=== PATIENT | female | born 1980 | race Caucasian/White ===

== ENCOUNTER → 2020-02-20 14:35 | Outpatient (CLI) | payer BC, SELFPAY ==
[2020-02-20 15:09] LABS: Basophils % 0.5 % (0.1-2.0); Eosinophils # 0.1 K/mm3 (0.0-0.4); Eosinophils % 0.7 % (0.1-12.0); Hematocrit 39.1 % (37.0-47.0); Hemoglobin 14.9 g/dL (12.2-16.2); Lymphocytes # 2.7 K/mm3 (0.7-4.5); Lymphocytes % 36.9 % (10-50); Mean Corpuscular Volume 94.8 fl (81-99); Mean Platelet Volume 7.6 fl (7.4-10.4); Monocytes # 0.5 K/mm3 (0.1-1.0); Monocytes % 7.2 % (1.7-9.3); Neutrophils % 54.6 % (37.0-80.0); Platelet Count 308 K/mm3 (142-424); Red Blood Count 4.13 M/mm3 (4.20-5.40); Red Cell Distribution Width 13.5 % (11.5-17.5); White Blood Count 7.4 K/mm3 (4.8-10.8)
[2020-02-20 15:27] LABS: Alanine Aminotransferase 29 U/L (12-78); Albumin Level 4.4 g/dl (3.5-5.0); Albumin/Globulin Ratio 1.5 (1.1-1.8); Alkaline Phosphatase 63 U/L (38-126); Amylase 73 U/L (30-110); Anion Gap 15.2 mEq/L (5-15); Aspartate Amino Transferase 34 U/L (14-36); Bilirubin,Total 0.7 mg/dl (0.2-1.3); Blood Urea Nitrogen 12 mg/dl (7-17); Calcium 9.6 mg/dl (8.4-10.2); Carbon Dioxide 25 mmol/L (22.0-30.0); Chloride 102 mmol/L (98-107); Estimated Glomerular Filt Rate 70 ml/min (>60); GFR (African American) 84 ML/MIN (>60); Glucose 82 mg/dl (74-100); Lipase 131 U/L (23-300); Potassium 4.2 mmoL/L (3.5-5.1); Sodium 138 mmol/L (136-145); Total Protein,Serum 7.4 g/dl (6.3-8.2)
[2020-02-23 16:53] LABS: H. pylori Breath Test Negative (Negative)
== END ==
PROVIDERS: Visit Provider Nurse Practitioner Family
DX: R10.10 Upper abdominal pain, unspecified (principal); R10.13 Epigastric pain
CPT/HCPCS: 36415; 80053; 82150; 83013; 83690; 85025

== ENCOUNTER → 2020-02-27 09:10 | Outpatient (CLI) | payer BC, SELFPAY ==
--- NOTE | 2020-02-27 09:15 | US_ITS ---
PROCEDURE: US ABDOMEN LIMITED CLINICAL INDICATION: Dyspepsia, Upper ABD pain COMPARISON: US ABD US ABD(COMPLETE-MULTI ORGANS from 08/24/2016 FINDINGS: PANCREAS: Unremarkable. No obvious mass or abnormal fluid collection. No ductal dilatation LIVER: No focal liver lesions demonstrated. Homogeneous echogenicity. No intrahepatic biliary ductal dilatation evident. There is appropriate direction of blood flow within a non dilated portal vein RIGHT KIDNEY: Unremarkable. Normal size and echogenicity. No hydronephrosis GALLBLADDER: Prior cholecystectomy. Common bile duct is normal at 4 mm. IMPRESSION: Post cholecystectomy otherwise negative Dictated b Randolph Coffey MD 02/27/2020 17:05 Randolph Coffey MD in OV 02/27/2020 17:05
== END ==
PROVIDERS: PCP Family Medicine; Visit Provider Nurse Practitioner Family
DX: R10.10 Upper abdominal pain, unspecified (principal); R10.13 Epigastric pain
CPT/HCPCS: 76705

== ENCOUNTER 2023-12-27 14:03 | Outpatient (CLI) | payer BC, SELFPAY ==
--- NOTE | 2023-12-27 14:17 | US_ITS ---
FINAL REPORT CLINICAL HISTORY: HYPOTHYROIDISM COMPARISON: None FINDINGS: Sonographic images of the thyroid gland were obtained. The right thyroid lobe measures 5.1 cm. in length. The left thyroid lobe measures 4.1 cm. in length. The thyroid isthmus measures 0.3 cm. The echogenicity is normal. No mass or nodule is identified. IMPRESSION: Unremarkable thyroid ultrasound. Reviewed, Interpreted and Dictated by Sebas Agrawal III, MD Transcribed by Leilani Tejeda Authenticated and [facility]
== END 2023-12-27 23:59 | disposition home or self-care (01) ==
PROVIDERS: PCP Nurse Practitioner; Visit Provider Nurse Practitioner
DX: E03.9 Hypothyroidism, unspecified (principal)
CPT/HCPCS: 76536

== ENCOUNTER 2024-06-18 10:32 | Outpatient (CLI) | payer BC, SELFPAY ==
--- OUTSIDE RECORDS SUMMARY | 2024-06-18 10:34 | XMS_ITS | Encounter Summary ---
Author Organization [place] [address] Care Team Providers Care Wheel Braider Name Role Phone Aldair Sands Primary Care Provider [phone] Reason for Referral * Holter Monitor (Emergency) - Pending Review Specialty Diagnoses / Procedures Referred By Contac t Referred To Contact Radiology Diagnoses Palpitations Procedures HM HOLTER MONITOR RECORDING AND ANALYSIS [address] APRN [address] [place] [address] Phone: tel: fax: Referral ID Status Reason Start Date Expiration Date V isits Requested Visits Authorized [id number] Pending Review 08/30/2022 08/30/2024 1 1 * (Routine) - Closed Specialty Diagnoses / Procedures Referred By Contac t Referred To Contact Diagnoses Chest pain, unspecified type Procedures LOW RISK CHEST PAIN APPOINTMENT [address] [facility] [address] [place] [address] Phone: tel: fax: Referral ID Status Reason Start Date Expiration Date Visits Re quested Visits Authorized [id number] Closed 08/30/2022 08/30/2023 1 1 Reason for Visit * Reason Comments Tachycardia Feels her heart is r acing, hx pvc's, chest pain Encounter Details Date Type Department Care Team (Late st Contact Info) Description 08/30/2022 3:51 PM EST - 08/30/2022 6:34 PM EST [facility] [address] [place] [address] Rylan Rojas MD [address] [place] [id number] Chest pain, unspecified type (Primary Dx); Palpitations Discharge Disposition: Home or Self Care Social History Tobacco Use Types Packs/Day Years Used Date Smoking Tobacco: Never Smokeless Tobacco: Never Alcohol Use Standard Drinks/Week Comments Yes 1 (1 standard drink = 0.6 oz pur e alcohol) occ Comments No Sex and Gender Information Value Date Recorded Sex Assigned at Not on file Legal Sex Female 6:46 AM EDT Gender Identity Not on file Sexual Orientation Not on file COVID-19 Exposure Response Date Recorded In the last 10 days, have yo u been in contact with someone who was confirmed or suspected to have Coronavirus/COVID-19? Unable to assess 08/30/2022 4:16 PM EST documented as of this encounter Last Filed Vital Signs Vital Sign Reading Time Taken Comments Blood Pressure 138/78 08/30/2022 3:53 PM EST Pulse 74 08/30/2022 6:18 PM EST Temperature 36.7 ??C (98 ??F) 08/30/2022 3:53 PM EST Respiratory Rate 20 08/30/2022 3:53 PM EST Oxygen Saturation 100% 08/30/2022 3:53 PM EST Inhaled Oxygen Concentration - - Weight - - Height - - Body Mass Index - - documented in this encounter Discharge Instructions * Discharge Instructions* [address] [facility] APRN - 08/30/2022 6:17 PM EST You will be contacted by cardiology for referral to speak with a sales support associate, you should also contact central scheduling to obtain Holter monitor. Follow-up with your primary care provider, return for any worsening concerns or symptoms. documented in this encounter Medications at Time of Discharge levothyroxine (SYNTHROID) 100 mcg Oral Tablet Take 100 mcg by mouth daily. norgestimate-ethin yl estradiol (ORTHO TRI-CYCLEN;TRI-SPR INTEC) 0.18/0.215/0.25 mg-35 mcg (28) Oral Tablet Take 1 Tab by mouth daily. documented as of this encounter Discharge Disposition Disposition Code Departure Means Destination Comment s Home or Self Assisted documented in this encounter ED Notes * [address], ALIN - 08/30/2022 3:47 PM EST Chief Complaint Patient presents with ??? Tachycardia Feels her heart is racing, hx pvc's, chest pain Marycruz Manzano is a 42-year-old female presenting with palpitations and chest pain. Patient states she was at school today and was having frequent PVCs. She states he has a history ofPVCs but for over 1 hour she can get her heart rate under 110 bpm. She was having chest pain at thetime. She describes it as pressure. Did not seem to be worse with exertion. States she does have a family history of cardiac disease which is what concerned her. She does drink caffeine. 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 Patient denies any chest pain at this time. She denies any recent surgeries, recent travel, history of PE or DVT, no hormonal therapy, no personal history of cancer. Patient History Allergies Allergen Reactions ??? Lidocaine Palpitations ??? Amoxicillin Rash Home Medications: Prior to Admission medications Medication Sig Start Date End Date Taking? Authorizing Provider levothyroxine (SYNTHROID) 100 mcg Oral Tablet Take 100 mcg by mouth daily. Yes Provider, Historical norgestimate-ethinyl estradiol (ORTHO TRI-CYCLEN;TRI-SPRINTEC) 0.18/0.215/0.25 mg-35 mcg (28) Oral Tablet Take 1 Tab by mouth daily. Yes Provider, Historical Past Medical History: Past Medical History: Diagnosis Date ??? Headache ??? Heart abnormality palpitations-wore heart monitor approx 4 yrs ago ??? Thyroid disease hypothyroid Social History: reports that she has never smoked. She has never used smokeless tobacco. She reports current alcohol use of about 0.6 oz per week. She reports that she does not use drugs. E-Cigarettes (such as Vapes or Juul) Family History: Family History Problem Relation Age of Onset ??? Heart Disease Mother ??? Diabetes Mother ??? High Cholesterol Mother ??? High Cholesterol Father ??? Anesth Problems Neg Hx Surgical History: Past Surgical History: Procedure Laterality Date ??? CHOLECYSTECTOMY, LAPAROSCOPIC N/A 10/14/2016 LAPAROSCOPIC CHOLECYSTECTOMY ; Surgeon: Bennett Jimenez MD; Location: [facility] MAIN OR; Service: General ??? SOFT TISSUE BIOPSY N/A 08/18/2017 EXCISIONAL BIOPSY SCALP MASS x3; Surgeon: Bennett Jimenez MD; Location: [facility] MAIN OR; Service: General ??? TONSILLECTOMY [age] yrs old Review of Systems Review of Systems Constitutional: Negative for chills and fever. HENT: Negative. Eyes: Negative. Respiratory: Negative for cough and shortness of breath. Cardiovascular: Positive for chest pain and palpitations. Negative for leg swelling. Gastrointestinal: Negative for abdominal pain, diarrhea, nausea and vomiting. Genitourinary: Negative for dysuria and frequency. Musculoskeletal: Negative. Skin: Negative for rash. Neurological: Negative. Psychiatric/Behavioral: Negative. All other systems reviewed and are negative. Physical Exam Blood pressure 138/78, pulse 110, temperature 98 ??F (36.7 ??C), temperature source Oral, resp. rate 20, SpO2 100 %, not currently . Physical Exam Vitals and nursing note reviewed. Constitutional: General: She is not in acute distress. Appearance: She is well-developed. She is not ill-appearing or toxic-appearing. Eyes: Conjunctiva/sclera: Conjunctivae normal. Pupils: Pupils are equal, round, and reactive to light. Cardiovascular: Rate and Rhythm: Normal rate and regular rhythm. Heart sounds: No murmur heard. No friction rub. No gallop. Comments: Normal sinus rhythm on monitor occasional PVC. No JVD. Pulmonary: Effort: Pulmonary effort is normal. Breath sounds: Normal breath sounds. Abdominal: General: Bowel sounds are normal. There is no distension. Palpations: Abdomen is soft. Tenderness: There is no abdominal tenderness. Musculoskeletal: Cervical back: Normal range of motion and neck supple. Lymphadenopathy: Cervical: No cervical adenopathy. Skin: General: Skin is warm and dry. Findings: No rash. Neurological: Mental Status: She is alert and oriented to person, place, and time. Procedures Radiology/EKG/Labs: Results for orders placed or performed during the hospital encounter of 08/30/22 XR CHEST AP PORTABLE Narrative XR CHEST AP PORTABLE, 08/30/2022 4:51 PM CLINICAL HISTORY: -TACHYCARDIA COMPARISON: None. PROCEDURE COMMENTS: AP portable technique. FINDINGS: Support devices: No visible support devices. Heart and mediastinal contours within normal limits for technique. No active failure, pneumonia, or visible effusion. No visible pneumothorax. Impression No acute finding. - Note: Radiology results need to be interpreted within a comprehensive clinical context. If you have questions about the radiology report, please contact the office of the ordering clinician. CBC Result Value Ref Range WBC 7.7 3.7 - 10.3 x10(3)/mcL RBC 4.90 3.90 - 5.20 x10(6)/mcL Hgb 14.4 11.2 - 15.7 g/dL Hct 44.2 34.0 - 45.0 % MCV 90.2 80.0 - 100.0 fL MCH 29.4 26.0 - 34.0 pg MCHC 32.6 30.7 - 35.5 g/dL RDW 13.6 <=14.9 % Platelet 462 (H) 155 - 369 x10(3)/mcL MPV 9.8 8.8 - 12.5 fL BASIC METABOLIC PANEL Result Value Ref Range Sodium 141 136 - 145 mmol/L Potassium 3.5 3.5 - 5.0 mmol/L Chloride 105 98 - 107 mmol/L Total CO2 22 22 - 29 mmol/L Anion Gap 14 7 - 16 mmol/L Calcium 10.0 8.6 - 10.4 mg/dL Glucose Lvl 102 (H) 74 - 100 mg/dL BUN 7 6 - 20 mg/dL Creatinine 0.94 0.51 - 1.30 mg/dL eGFR (CKD-EPIcr 2020) 78 >=60 mL/min/1.73 m2 TROPONIN-T HIGH SENSITIVITY BASELINE W/ REFLEX Result Value Ref Range ht-pWjicnmim-R <6 <14 ng/L Narrative Ingestion of shay doses of biotin (>5 mg/day) taken within 8 hours of drawing blood sample can interfere with this immunoassay test. EK EKG 12 LEAD Narrative NOTICE: Preliminary tracing available for review; Final Interpretation by physician to follow. Impression 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 Chest pain, unspecified type 2. Palpitations MDM Medical Decision Making Patient present with above complaints, here for an acute concern, history per patient, previous past medical records reviewed. Patient developed tachycardia palpitations and chest pain while at work.Symptoms lasted for over 1 hour. Does have a history of palpitations but describing family history of cardiac disease. She does drink caffeine, denies any alcohol or illicit drug use. 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 On arrival she is normotensive nontachycardic oxygen saturation 100% on room air. No active chest pain. Will obtain cardiac work-up will require 2-hour troponin given time length. CBC BMP unremarkable, chest x-ray clear. Initial troponin -2-hour troponin with no delta. Patient continued to be pain-free, heart score of 1, given low risk chest pain low concern for ACS she will be given referral for cardiology follow- up. Have also ordered 48-hour Holter monitor. Patient was given strict return precautions. She is agreeable with this plan. Patient verbalized understanding of discharge instructions and plan of care. Condition at Discharge/Transfer from Department: Stable This chart was completed using voice recognition technology and may contain unintended errors [address] APRN 08/30/22 [id number] Cosigned by Rylan Rojas MD at 08/30/2022 7:11 PM EST Associated attestation - Rylan Rojas MD - 08/30/2022 7:11 PM EST This chart was completed using voice recognition technology and may contain unintended errors documented in this encounter Plan of Treatment Scheduled Orders Name Type Priority Associated Diagnoses Order Schedule HOLTER MONITOR RECORDING AND ANALYSIS Imaging Cardiology STAT Palpitations 1 Occurrences starting 08/30/2022 until 08/30/2024 documented as of this encounter Procedures Procedure Name Priority Date/Time Associated Diagnosis Comments SCANNED EKG 09/01/2022 8:08 AM EST TROPONIN-T HIGH SENSITIVITY 2HR Timed 08/30/2022 5:39 PM EST XR CHEST AP PORTABLE JUAN 08/30/2022 4:51 PM EST TSH REFLEX STAT 08/30/2022 4:27 PM EST TROPONIN-T HIGH SENSITIVITY BASELINE W/ REFLEX STAT 08/30/2022 4:03 PM EST CBC STAT 08/30/2022 4:03 PM EST BASIC METABOLIC PANEL STAT 08/30/2022 4:03 PM EST EK EKG 12 LEAD STAT 08/30/2022 3:50 PM EST documented in this encounter Results * SCANNED EKG (09/01/2022 8:08 AM EST) Anatomical Region Laterality Modality Other 09/01/2022 8:08 AM EST us Unknown Provider IMG ECG ORDERABLES Final Result * TROPONIN-T HIGH SENSITIVITY 2HR (08/30/2022 5:39 PM EST) vz-yNgvsiika-O 2HR <6 <14 ng/L 08/30/2022 6:12 PM EST [facility] Comment:See the website vangie powell for rule out [place] care pathway, conditions other than AMI that can cause elevated hs cTnT, and comparison of values from the 4th and 5th generation Herb tests. https://askmayoexpert.[facility].org/topic/clinical-answers/gnt-36817911/cpm-203 31563 hs-cTnT 2Hr Delta from Baseline 08/30/2022 6:12 PM EST [facility] Comment:Unable to calculate, result is outside instrument's measuring range. Blood VENOUS BLOOD / Unknown Venipuncture / Unknown 08/30/2022 5:39 PM EST 08/30/2022 5:50 PM EST Narrative [facility] - 08/30/2022 6:12 PM EST Ingestion of shay doses of biotin (>5 mg/day) taken within 8 hours of drawing blood sample can interfere with this immunoassay test. us Rylan Rojas MD CHEMISTRY ORDERABLES Malu l Result [facility] [address] [place] [address] * XR CHEST AP PORTABLE (08/30/2022 4:51 PM EST) Anatomical Region Laterality Modality Chest Radiographic Kiley ging 08/30/2022 4:51 PM EST Impressions 08/30/2022 4:55 PM EST No acute finding. - Note: Radiology results need to be interpreted within a comprehensive clinical context. ??If you have questions about the radiology report, please contact the office of the ordering clinician. Narrative 08/30/2022 4:55 PM EST XR CHEST AP PORTABLE, ??08/30/2022 4:51 PM CLINICAL HISTORY: ??-TACHYCARDIA COMPARISON: ??None. PROCEDURE COMMENTS: AP portable technique. FINDINGS: Support devices: No visible support devices. Heart and mediastinal contours within normal limits for technique. ??No active failure, pneumonia, or visible effusion. ??No visible pneumothorax. Procedure Note Eric Thompson MD - 08/30/2022 XR CHEST AP PORTABLE, 08/30/2022 4:51 PM CLINICAL HISTORY: -TACHYCARDIA COMPARISON: None. PROCEDURE COMMENTS: AP portable technique. FINDINGS: Support devices: No visible support devices. Heart and mediastinal contours within normal limits for technique. Noactive failure, pneumonia, or visible effusion. No visible pneumothorax. IMPRESSION: No acute finding. - Note: Radiology results need to be interpreted within a comprehensiveclinical context. If you have questions about the radiology report, please contactthe office of the ordering clinician. Rylan Rojas MD IMG DIAGNOSTIC IMAGING OR DERABLES Final Result * TSH REFLEX (08/30/2022 4:27 PM EST) TSH Reflex 2.930 0.270 - 4.200 mcIU/mL 08/30/2022 7:48 PM EST [email or web address] Blood VENOUS BLOOD / Unknown Venipuncture / Unknown 08/30/2022 4:27 PM EST 08/30/2022 4:33 PM EST Narrative [email or web address] - 08/30/2022 7:48 PM EST Ingestion of shay doses of biotin (>5 mg/day) taken within 8 hours of drawing blood sample can interfere with this immunoassay test. [address] APRN CHEMISTRY ORDERABLES Final Result Performing Organization Address [facility]/ZIP Co de Phone Number [email or web address] [address] [facility] , [place] [address] * TROPONIN-T HIGH SENSITIVITY BASELINE W/ REFLEX (08/30/2022 4:03 PM EST) wo-zTsjhpqfx-K <6 <14 ng/L 08/30/2022 4:25 PM EST [facility] Comment:See the website enavu ContactMonkey for rule out [place] care pathway, conditions other than AMI that can cause elevated hs cTnT, and comparison of values from the 4th and 5th generation Herb tests. https://askmayoexpert.[facility].org/topic/clinical-answers/gnt-54838145/cpm-203 56113 Blood VENOUS BLOOD / Unknown Venipuncture / Unknown 08/30/2022 4:03 PM EST 08/30/2022 4:06 PM EST Narrative [facility] - 08/30/2022 4:25 PM EST Ingestion of shay doses of biotin (>5 mg/day) taken within 8 hours of drawing blood sample can interfere with this immunoassay test. Rylan Rojas MD CHEMISTRY ORDERABLES Malu l Result [facility] [address] [place] [address] * (ABNORMAL) BASIC METABOLIC PANEL (08/30/2022 4:03 PM EST) [facility] Sodium 141 136 - 145 mmol/L 08/30/2022 4:24 PM EST [facility] Potassium 3.5 3.5 - 5.0 mmol/L 08/30/2022 4:24 PM [facility] Chloride 105 98 - 107 mmol/L 08/30/2022 4:24 PM [facility] Total CO2 22 22 - 29 mmol/L 08/30/2022 4:24 PM [facility] Anion Gap 14 7 - 16 mmol/L 08/30/2022 4:24 PM [facility] Calcium 10.0 8.6 - 10.4 mg/dL 08/30/2022 4:24 PM [facility] Glucose Lvl 102(H) 74 - 100 mg/dL 08/30/2022 4:24 PM EST [facility] BUN 7 6 - 20 mg/dL 08/30/2022 4:24 PM [facility] Creatinine 0.94 0.51 - 1.30 mg/dL 08/30/2022 4:24 PM [facility] eGFR (CKD-EPIcr 2020) 78 >=60 mL/min/1.7 3 m2 08/30/2022 4:24 PM [facility] Comment:Estimated GFR was ca lculated using the CKD-EPIcr (2020) equation refit without race. The equation is recommended by the National Kidney Foundation - [place] [employer] of Nephrology Task Force. Blood VENOUS BLOOD / Unknown Venipuncture / Unknown 08/30/2022 4:03 PM EST 08/30/2022 4:06 PM EST Rylan Rojas MD CHEMISTRY ORDERABLES Malu servin Result [facility] [address] [place] [id number] * (ABNORMAL) CBC (08/30/2022 4:03 PM EST) WBC 7.7 3.7 - 10.3 x10(3)/mcL 08/30/2022 4:09 PM EST [facility] RBC 4.90 3.90 - 5.20 x10(6)/mcL 08/30/2022 4:09 PM EST [facility] Hgb 14.4 11.2 - 15.7 g/dL 08/30/2022 4:09 PM EST [facility] Hct 44.2 34.0 - 45.0 % 08/30/2022 4:09 PM EST [facility] MCV 90.2 80.0 - 100.0 fL 08/30/2022 4:09 PM EST [facility] MCH 29.4 26.0 - 34.0 pg 08/30/2022 4:09 PM EST [facility] MCHC 32.6 30.7 - 35.5 g/dL 08/30/2022 4:09 PM EST [facility] RDW 13.6 <=14.9 % 08/30/2022 4:09 PM EST [facility] Platelet 462(H) 155 - 369 x10(3)/[facility] 08/30/2022 4:09 PM EST [facility] MPV 9.8 8.8 - 12.5 fL 08/30/2022 4:09 PM EST [facility] Blood VENOUS BLOOD / Unknown Venipuncture / Unknown 08/30/2022 4:03 PM EST 08/30/2022 4:06 PM EST Rylan Rojas MD HEMATOLOGY ORDERABLES Fin al Result [facility] [address] [place], [place] [id number] * EK EKG 12 LEAD (08/30/2022 3:50 PM EST) Anatomical Region Laterality Modality Electrocardiogra phy 08/30/2022 4:19 PM EST Impressions 08/30/2022 10:38 PM EST ?[facility] ? Test Date: ?2022-08-30 Pat Name: ? MARYCRUZ MANZANO ?Department: ?? DEPID ? Room: ? 05 Gender: ? Female ? 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 Cw : ?1980 ? Requested By: [facility] Order Number: [id number] ?Reading MD: ?? [place]ia ? Measurements Intervals ?[place] ? Rate: ? 78 ? P: ?45 MT: ? 165 ?QRS: ?47 QRSD: ? 84 ? T: ?-1 QT: ? 366 ? QTc: ?419 ? 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1980 Requested By: [facility] Order Number: [id number] Noni MD: Jonathan Agrawal Measurements Intervals [place] Rate: 78 P: 45 MT: 165 QRS: 47 QRSD: 84 T: -1 QT: 366 QTc: 419 Interpretive Statements SINUS RHYTHM WITH OCCASIONAL VENTRICULAR PREMATURE COMPLEXES NONSPECIFIC T-WAVE ABNORMALITY Electronically Signed On 08-30-2022 22:38:19 EST by Jonathan Agrawal Rylan Rojas MD IM ECG ORDERABLES Final Result documented in this encounter Visit Diagnoses Diagnosis Chest pain, unspecified type- Primary Palpitations documented in this encounter Administered Medications Inactive Administered Medications - up to 1 most recent administrations Medication Order MAR Action Action Date Dose Rate Site sodium chloride 0.9% IV line flush 50 mL 50 mL, Intravenous, at 150-600 mL/hr, PRN, Starting on Mon08/30/22 at 1602, Until Mon08/30/22 at 2234, Line Care, Flush with a minimum of 20 mL after IVPB to insure complete administration of the dose. May use the saline infusion to back flush IVPB tubing as needed., Use this order to document priming and flushing IV line after medication administration. sodium chloride 0.9% syringe 5 mL 5 mL, Intravenous, PRN, Starting on Mon08/30/22 at 1602, Until Mon08/30/22 at 2234, Line Care, Flush with 5 mL saline pre/post IVP, and 5 mL prior to IVPB or blood product administration. Protocol for PERIPHERAL IV saline lock maintenance, flush with 3-5 mL saline syringe every 8 hours., Flush peripheral lines every 12 hours, central lines every 8 hours, and after IV medication documented in this encounter Active and Recently Administered Medications Times are shown in EST. PRN Medication Order 08/28/2022 08/29/2022 08/30/2022 sodium chloride 0.9% IV line flush 50 mL 50 mL, Intravenous, at 150-600 mL/hr, PRN, Starting on Mon08/30/22 at 1602, Until Mon08/30/22 at 2234, Line Care, Flush with a minimum of 20 mL after IVPB to insure complete administration of the dose. May use the saline infusion to back flush IVPB tubing as needed., Use this order to document priming and flushing IV line after medication administration. sodium chloride 0.9% syringe 5 mL 5 mL, Intravenous, PRN, Starting on Mon08/30/22 at 1602, Until Mon08/30/22 at 2234, Line Care, Flush with 5 mL saline pre/post IVP, and 5 mL prior to IVPB or blood product administration. Protocol for PERIPHERAL IV saline lock maintenance, flush with 3-5 mL saline syringe every 8 hours., Flush peripheral lines every 12 hours, central lines every 8 hours, and after IV medication documented in this encounter Orders Medications Ordered That Parminder ht Not Have Been Administered Count Last Ordered Date First Ordered Date sodium chloride 0.9% IV line flush 50 mL 1 08/30/2022 sodium chloride 0.9% syringe 5 mL 1 023 Nursing Count Last Ordered Date First Orde red Date LOW RISK CHEST PAIN APPOINTMENT 1 3 documented in this encounter Care Teams Wheel Braider Relationship Specialty Start Date End Date Aldair Sands [address] [place] [address] PCP - General Family Medicine 09/19/16 documented as of this encounter
--- OUTSIDE RECORDS SUMMARY | 2024-06-18 10:34 | XMS_ITS | Encounter Summary ---
Author Organization [place] [address] Care Team Providers Care Grill Chef Name Role Phone Aldair Sands Primary Care Provider Reason for Visit * Auth/Cert/Inpt Specialty Diagnoses / Procedures Referred By Mike t Referred To Contact Diagnoses Mass of scalp Mass of scalp [R22.0] Procedures EXCISIONAL BIOPSY SCALP MASS x3 Referral ID Status Reason Start Date Expiration Date Visits Re quested Visits Authorized [id number] 1 1 Encounter Details Date Type Department Care Team (Late st Contact Info) Description 08/18/2017 1:36 PM EST Anesthesia Event [facility] [address] [place] [address] Haroon Oneill DO [address] [place] [phone] Sandra Alvarez, TICKET BROKER [address] [place] [address] Anesthesia Record Procedure Summary Procedure Name Responsible Anesthesiologist Anesthesia Start Time Anesthesia Stop Time EXCISION OF MASS OR SKIN LESION Haroon Oneill DO 08/18/17 1336 08/18/17 1419 Events Date Time Event Comment 08/18/2017 1225 1326 AN Equip Check 1336 An Start 1336 An Start Data 1336 Immediate Pre Anesthetic Ass es 1345 Anesthesia Ready 1350 Incision 1419 an stop data 1419 Handoff I completed my SBAR handoff to the receiving nurse which have included the followin. Identification of the patient, family, or patient surrogate 2. Identification of the responsible practitioner 3. Pertinent medical history 4. Surgical procedure and reason for procedure 5. Intraoperative anesthetic management 6. Expectations/Plans for the early post-procedure period 7. Opportunity for questions and acknowledgement of understanding from the receiving PACU/ICU garment steamer 1419 An Stop Meds Name Total midazolam (VERSED) injection 1 mg/mL 2 m g propofol (DIPRIVAN) infusion 10 mg/mL 18 5,020 mcg acetaminophen (OFIRMEV)1000 mg/100 mL in fusion 1,000 mg ceFAZolin (ANCEF) IVPB 2 g 2 g lactated Ringers infusion 550 mL * Agents Name O2 Et Sevoflurane * Blood No blood administrations on file. Lines, Drains, and Airways Type Details Placement Removal Peripheral IV 08/18/17; 1202; 20; Right; Forearm; Leena Edwards RN; 08/18/17; 1452 08/18/17 1202 by Jennifer Waller RN 08/18/17 1452 by Nadia Rankin, LAURA Airway Device: Nasal Cannul a Salter; Placement Date: 08/18/17; Placement Time: 1346 (created via procedure documentation); Removal Date: 08/18/17; Removal Time: 1513 08/18/17 1346 by Kofi Jane CRNA 08/18/17 1513 by Discharge Provider, Automatic Incision/Procedural Site 08/18/17; 1349; Head (incision x 3); 08/18/17; 1513 08/18/17 1349 by Iris Stephens RN 08/18/17 1513 by Discharge Provider, Automatic documented in this encounter Social History Tobacco Use Types Packs/Day Years Used Date Smoking Tobacco: Never Smokeless Tobacco: Never Alcohol Use Standard Drinks/Week Comments Yes 1 (1 standard drink = 0.6 oz pur e alcohol) occ Comments No Sex and Gender Information Value Date Recorded Sex Assigned at Not on file Legal Sex Female 6:46 AM EDT Gender Identity Not on file Sexual Orientation Not on file documented as of this encounter Procedure Notes * Kofi Jane CRNA - 08/18/2017 1:46 PM ESTAssociated Order(s): INTRAOP AIRWAY PLACEMENT Intraop Airway Placement: Airway type: Nasal cannula salter documented in this encounter OR Notes * Anesthesia Postprocedure Evaluation - Haroon Oneill DO - 08/18/2017 3:13 PM EST Post-Anesthesia Evaluation Note Patient Name: Marycruz Echeverria Patient Date: August 18, 2017 Patient Location: PACU Post OP Vitals: stable Level of Consciousness: awake Post Anesthesia Pain: adequate analgesia Airway Patency: patent Difficult Airway: no Respiratory: room air and spontaneous ventilation Cardiovascular: stable and BP within 20% of baseline Hydration: euvolemic Nausea Controlled: yes * Anesthesia Preprocedure Evaluation - Haroon Oneill DO - 08/16/2017 9:05 AM EST Pre-Anesthesia Evaluation Note Patient Name: Marycruz Echeverria Sex: female Patient : 1980 Age: 37 y.o. Patient Date: August 16, 2017 Procedure: MASS/SKIN LESION EXCISION (N/A ) Anesthesia Evaluation Previous anesthesia. No history of anesthetic complications: Airway Mallampati: II TM distance: >3 FB Neck ROM: full No increased risk of difficult airway Dental - normal exam Pulmonary - negative ROS (+) Physical exam: Comments: Clear to auscultation (-) not a smoker Cardiovascular - negative ROS Comments: H/o palpitations (+)Physical exam: Rhythm: regular Rate: normal Neuro/Psych (+) Headaches GI/Hepatic/Renal - negative ROS Endo/Other Comments: Scalp mass (+) Hypothyroidism HR CLERK Additional Pre-evaluation comments Labs reviewed 09/2016 cbc cmp Urine preg DOS Body mass index is 28.59 kg/m??. Anesthesia Plan ASA 2 Last solid intake: The patient has not eaten within the last 8 hours. Last clear liquid intake: The patient has not had clear liquids within the last 2 hours. Anesthesia Plan: MAC Induction: intravenous Monitors: STD Informed consent Anesthetic plan and risks discussed with: patient. Chart Reviewed and patient examined documented in this encounter Plan of Treatment Not on file documented as of this encounter Procedures Procedure Name Priority Date/Time Associated Diagnosis Comments INTRAOP AIRWAY PLACEMENT Routine 08/18/2017 1:46 PM EST documented in this encounter Results * INTRAOP AIRWAY PLACEMENT (08/18/2017 1:46 PM EST) Narrative [facility] - 08/18/2017 1:46 PM EST Kofi Jane CRNA ? 08/18/2017 ??1:46 PM Intraop Airway Placement: ??Airway type: ??Nasal cannula salter Procedure Note Kofi Jane CRNA - 08/18/2017 1:46 PM EST Intraop Airway Placement: Airway type: Nasal cannula salter us Haroon Oneill DO SD ANESTHESIA Final Res ult [facility] [address] [place] [address] documented in this encounter Visit Diagnoses Not on filedocumented in this encounter Administered Medications Inactive Administered Medications - up to 1 most recent administrations Medication Order MAR Action Action Date Dose Rate Site acetaminophen (OFIRMEV) infusion Intravenous, PRN (Anesthesia), Starting on Mon08/18/17 at 1355, Until Mon08/18/17 at 1419, Administer over 15 Minutes, Anesthesia Intra-op Given 08/18/2017 1:55 PM EST 1,000 mg ceFAZolin (ANCEF) IVPB 2 g 2 g, Intravenous, ONCE, 1 dose, On Mon08/18/17 at 1345, Administer over 30 Minutes, Intra-op Given 08/18/2017 1:44 PM EST 2 g lactated Ringers infusion Intravenous, at 100 mL/hr, PREPROCEDURE CONTINUOUS, Starting on Mon08/18/17 at 1201, Until Mon08/18/17 at 1854, To be given in SDS/Pre-op Hold, Pre-op (Holding/SDS Meds) New Bag 08/18/2017 1:29 PM EST midazolam (VERSED) injection Intravenous, PRN (Anesthesia), Starting on Mon08/18/17 at 1335, Until Mon08/18/17 at 1419, Anesthesia Intra-op Given 08/18/2017 1:35 PM EST 2 mg propofol (DIPRIVAN) infusion 10 mg/mL Intravenous, CONTINUOUS PRN, Starting on Mon08/18/17 at 1335, Until Mon08/18/17 at 1419, Anesthesia Intra-op New Bag 08/18/2017 1:35 PM EST 50 mcg/kg/min 25.2 mL/hr documented in this encounter Care Teams Grill Chef Relationship Specialty Start Date End Date Aldair Sands [address] [place] [address] PCP - General Family Medicine 09/19/16 documented as of this encounter
--- OUTSIDE RECORDS SUMMARY | 2024-06-18 10:34 | XMS_ITS | Clinical Summary ---
Author Organization [facility] Address [address] [facility] [place] [address] Phone Care Team Providers Care Clinical Massage Therapist Name Role Phone Aldair Sands Primary Care Provider Allergies Active Allergy Reactions Criticality Noted Date Comments Amoxicillin Rash Medium 09/08/2016 Lidocaine Palpitations High 09/08/2016 Medications levothyroxine (SYNTHROID) 100 mcg Oral Tablet Take 100 mcg by mouth daily. Active norgestimate-eth inyl estradiol (ORTHO TRI-CYCLEN;TRI-S PRINTEC) 0.18/0.215/0.25 mg-35 mcg (28) Oral Tablet Take 1 Tab by mouth daily. Active Active Problems Problem Noted Date Diagnosed Date Scalp mass 07/06/2017 Biliary colic 09/08/2016 Surgical History Surgery Date Site/Laterality Comments TONSILLECTOMY [age] yrs old CHOLECYSTECTOMY, LAPAROSCOPIC 10/14/2016 Abdomen/N/A LAPAROSCOPIC CHOLECYSTECTOMY ; Surgeon: Bennett Jimenez MD; Location: [facility] OR; Service: General SOFT TISSUE BIOPSY 08/18/2017 N/A EXCISIONAL BIOPSY SCALP MASS x3; Surgeon: Bennett Jimenez MD; Location: [facility] OR; Service: General Medical History Medical History Date Comments Headache Heart abnormality palpitations-w ore heart monitor approx 4 yrs ago Thyroid disease hypothyroid Family History Medical History Relation Name Comments High Cholesterol Father Diabetes Mother Heart Disease Mother High Cholesterol Mother Anesth Problems Neg Hx Relation Name Status Comments Father Alive Mother Alive Social History Tobacco Use Types Packs/Day Years Used Date Smoking Tobacco: Never Smokeless Tobacco: Never Alcohol Use Standard Drinks/Week Comments Yes 1 (1 standard drink = 0.6 oz pur e alcohol) occ Comments No Sex and Gender Information Value Date Recorded Sex Assigned at Not on file Legal Sex Female 6:46 AM EDT Gender Identity Not on file Sexual Orientation Not on file Obstetrics History Last Filed Vital Signs Vital Sign Reading Time Taken Comments Blood Pressure 138/78 08/30/2022 3:53 PM EST Pulse 74 08/30/2022 6:18 PM EST Temperature 36.7 ??C (98 ??F) 08/30/2022 3:53 PM EST Respiratory Rate 20 08/30/2022 3:53 PM EST Oxygen Saturation 100% 08/30/2022 3:53 PM EST Inhaled Oxygen Concentration - - Weight 84.1 kg (185 lb 8 oz) 08/18/2017 11:55 AM EST Height 172.7 cm (5' 8 ) 08/18/2017 11:55 AM EST Body Mass Index 28.21 08/18/2017 11:55 AM EST Plan of Treatment Health Maintenance Due Date Last Done Comments Annual Wellness Exam 1983 DTaP/TDaP/Td (1 - Tdap) 01/04/2000 Hepatitis B Vaccine (1 of 3 - 19+ 3-dose series) 01/04/2000 Cervical Cancer Screening 2002 Pap Smear 2002 HPV/Pap Cotest 2011 Breast Cancer Screening 2021 COVID-19 Vaccine (3 - 2023-2 5 season) 2024 08/27/2020, 07/28/2020 Influenza Vaccine (#1) 2024 03/22/2018 Pneumococcal Vaccine 0-64 Aged Out No longer eligible based on patient's age to complete this topic Insurance [employer] PPO [employer] P[employer] Care Teams Clinical Massage Therapist Relationship Specialty Start Date End Date Aldair Sands [address] [place] [address] PCP - General Family Medicine 09/19/16
--- OUTSIDE RECORDS SUMMARY | 2024-06-18 10:34 | XMS_ITS | Encounter Summary ---
Author Organization [place] [address] Care Team Providers Care Job Press Operator Name Role Phone Aldair Sands Primary Care Provider Reason for Visit * Auth/Cert/Inpt Specialty Diagnoses / Procedures Referred By Contac t Referred To Contact Diagnoses Mass of scalp Mass of scalp [R22.0] Procedures EXCISIONAL BIOPSY SCALP MASS x3 Referral ID Status Reason Start Date Expiration Date Visits Re quested Visits Authorized [id number] 1 1 Encounter Details Date Type Department Care Team (Latest Contact Info) Description 08/18/2017 11:42 AM EST - 08/18/2017 2:54 PM EST Hospital Encounter [facility] [address] [facility] [place] [address] Bennett Jimenez MD [address] [facility] [place] [address] Preop testing (Primary Dx); Scalp mass; Mass of scalp Discharge Disposition: Home or Self Care Social [...] on file documented as of this encounter Last Filed Vital Signs Vital Sign Reading Time Taken Comments Blood Pressure 103/68 08/18/2017 2:40 PM EST Pulse 59 08/18/2017 2:40 PM EST Temperature 36.2 ??C (97.1 ??F) 08/18/2017 2:38 PM ES T Respiratory Rate 18 08/18/2017 2:40 PM EST Oxygen Saturation 100% 08/18/2017 2:40 PM EST Inhaled Oxygen Concentration - - Weight 84.1 kg (185 lb 8 oz) 08/18/2017 11:55 AM EST Height 172.7 cm (5' 8 ) 08/18/2017 11:55 AM EST Body Mass Index 28.21 08/18/2017 11:55 AM EST documented in this encounter Discharge Instructions * Discharge Instructions* Bennett Jimenez MD - 08/18/2017 2:23 PM EST +++++++++++++++++++++++++++++++++++++++++++++++++++++++++++++++++++ +++++++++++++++++++++++++++++++++++++++++++++++++++++++++++++++++++ [facility] Discharge Instructions - Following Anesthesia We appreciate the opportunity to care for you today! Here are a few reminders as you head home: ?? A responsible adult, 18 years or older must be in attendance until tomorrow morning. ?? Rest quietly today. ?? May resume usual diet as tolerated or as directed by your surgeon. ?? Do not drive or operate any machinery until tomorrow morning or as instructed. ?? Do not make any legal or important decisions for the next 24 hours. ?? Do not drink alcoholic beverages or take sleeping pills for 24 hours unless otherwise directed. ?? If you received a nerve block for post-operative pain control, protect your blocked arm/leg. It is numb. Carefully pad your limb to prevent pressure sores and other injuries. Be careful with applying cold/warm to the blocked limb. Numbness will alter the sensation of the limb and could damage your skin if you cannot correctly feel the temperature. ?? If you have questions or concerns regarding your anesthesia experience, please call our office at . Get Well Soon! [facility] Call Surgeon if you have: ?? Temperature greater than 100.4 ?? Persistent nausea and vomiting ?? Severe uncontrolled pain ?? Redness, tenderness, or signs of infection (pain, swelling, redness, odor or green/yellow discharge around the site) ?? Difficulty breathing, headache or visual disturbances ?? Hives ?? Persistent dizziness or light-headedness ?? Extreme fatigue ?? Any other questions or concerns you may have after discharge In an emergency, call 911 or go to an Emergency Department at a nearby hospital It is important to bring a complete, current list of your medications to any medical appointments or hospitalizations. Diet: Resume your usual diet. Good nutrition promotes healing. Increase fluid intake. Call Surgeon if you have: ?? Temperature greater than 100.4 ?? Persistent nausea and vomiting ?? Severe uncontrolled pain ?? Redness, tenderness, or signs of infection (pain, swelling, redness, odor or green/yellow discharge around the site) ?? Difficulty breathing, headache or visual disturbances ?? Hives ?? Persistent dizziness or light-headedness ?? Extreme fatigue ?? Any other questions or concerns you may have after discharge In an emergency, call 911 or go to an Emergency Department at a nearby hospital It is important to bring a complete, current list of your medications to any medical appointments or hospitalizations. 1. It is OK to shower in 4 days. No soaking/swimming 2. Activity as tolerated. It is OK to use stairs, and lift items as needed. 3. No driving if experiencing significant pain at the incisions sites, or if taking pain medication. 4. Diet as tolerated. Clear liquids if experiencing any nausea or vomiting. 5. Reinforce incisions with Neosporin or polysporin as needed 6. Please call [phone] for a follow-up appointment in 7 to 14 days. documented in this encounter Medications at Time of Discharge levothyroxine (SYNTHROID) 100 mcg Oral Tablet Take 100 mcg by mouth daily. norgestimate-ethi nyl estradiol (ORTHO TRI-CYCLEN;TRI-SP RINTEC) 0.18/0.215/0.25 mg-35 mcg (28) Oral Tablet Take 1 Tab by mouth daily. oxyCODONE-acetami nophen (PERCOCET) 5-325 mg Oral Tablet Take 1-2 Tabs by mouth every 4 hours as needed for up to 30 days. 30 Tab 08/18/2017 09/17/2017 documented as of this encounter Ordered Prescriptions Prescription Sig Dispense Quantity Refills Last Filled Start Date End Date oxyCODONE-acetamin ophen (PERCOCET) 5-325 mg Oral Tablet Take 1-2 Tabs by mouth every 4 hours as needed for up to 30 days. 30 Tab 08/18/2017 09/17/2017 documented in this encounter Discharge Disposition Disposition Code Departure Means Destination Home or Self Fdc documented in this encounter H&P Notes * Floyd Vega NP - 08/18/2017 12:03 PM EST [facility] History and Physical Name: Marycruz Echeverria ADDRESS: [address] [place] [address] : 1980 AGE: 37 y.o. Assessment: Mass of scalp [R22.0] Plan: Procedure(s): EXCISIONAL BIOPSY SCALP MASS x3 per Bennett Jimenez MD Admitting Physician: Bennett Jimenez MD Date of Admit: 08/18/2017 Subjective SUBJECTIVE Chief Complaint: Mass of scalp [R22.0] History of Present Illness: Patient is a 37 y.o. female with Mass of scalp [R22.0] who presents forsurgical intervention. Past Medical History: Diagnosis Date ??? Headache ??? Heart abnormality palpitations-wore heart monitor approx 4 yrs ago ??? Thyroid disease hypothyroid Past Surgical History: Procedure Laterality Date ??? CHOLECYSTECTOMY, LAPAROSCOPIC N/A 10/14/2016 LAPAROSCOPIC CHOLECYSTECTOMY ; Surgeon: Bennett Jimenez MD; Location: [facility] MAIN OR; Service: General ??? TONSILLECTOMY [age] yrs old Prior to Admission medications Medication Sig Start Date End Date Taking? Authorizing Provider levothyroxine (SYNTHROID) 100 mcg Oral Tablet Take 100 mcg by mouth daily. Provider, Historical norgestimate-ethinyl estradiol (ORTHO TRI-CYCLEN;TRI-SPRINTEC) 0.18/0.215/0.25 mg-35 mcg (28) Oral Tablet Take 1 Tab by mouth daily. Provider, Historical Allergies Allergen Reactions ??? Lidocaine Palpitations ??? Amoxicillin Rash Social History Social History ??? Marital status: Spouse name: N/A ??? Number of children: N/A ??? Years of education: N/A Social History Main Topics ??? Smoking status: Never Smoker ??? Smokeless tobacco: Never Used ??? Alcohol use 0.6 oz/week 1 Glasses of wine per week Comment: occ ??? Drug use: No ??? Sexual activity: Not Asked Other Topics Concern ??? None Social History Narrative ??? None Family History Problem Relation Age of Onset ??? Heart Disease Mother ??? Diabetes Mother ??? High Cholesterol Mother ??? High Cholesterol Father ??? Anesth Problems Neg Hx There are no active hospital problems to display for this patient. Blood pressure 118/78, pulse 68, temperature 97.2 ??F (36.2 ??C), temperature source Forehead, resp. rate 18, height 5' 8 (1.727 m), weight 185 lb 8 oz (84.1 kg), last menstrual period 08/08/2017, SpO2 100 %.Pain: 0/10 Review of Systems: The listed systems were reviewed and reveal the following in addition to any already discussed in the HPI: Review of Systems Constitutional: Negative. HENT: Negative for congestion, ear discharge, ear pain, hearing loss, nosebleeds and sore throat. Eyes: Negative for blurred vision, double vision, pain, discharge and redness. Respiratory: Negative. Cardiovascular: Negative for chest pain, palpitations, orthopnea and leg swelling. Gastrointestinal: Negative. Genitourinary: Negative. Musculoskeletal: Negative. Skin: Negative. Neurological: Negative for dizziness, tingling, tremors, focal weakness, seizures, loss of consciousness and headaches. Endo/Heme/Allergies: Negative. Psychiatric/Behavioral: Negative for depression, hallucinations, substance abuse and suicidal ideas. Objective OBJECTIVE Physical Exam: Body mass index is 28.21 kg/m??. Body surface area is 1.98 meters squared. Physical Exam Constitutional: She is oriented to person, place, and time. She appears well- developed and well-nourished. No distress. HENT: Head: Normocephalic. Mouth/Throat: Oropharynx is clear and moist. No oropharyngeal exudate. Eyes: Conjunctivae are normal. Pupils are equal, round, and reactive to light. Right eye exhibits no discharge. Left eye exhibits no discharge. No scleral icterus. Neck: Normal range of motion. Neck supple. No JVD present. No tracheal deviation present. No thyromegaly present. Cardiovascular: Normal rate, regular rhythm, normal heart sounds and intact distal pulses. Exam reveals no gallop and no friction rub. No murmur heard. Pulmonary/Chest: Effort normal and breath sounds normal. No stridor. No respiratory distress. She has no wheezes. She has no rales. She exhibits no tenderness. Abdominal: Soft. Bowel sounds are normal. There is no tenderness. There is no guarding. Genitourinary: Genitourinary Comments: Not done. Musculoskeletal: Normal range of motion. She exhibits no edema, tenderness or deformity. Lymphadenopathy: She has no cervical adenopathy. Neurological: She is alert and oriented to person, place, and time. Skin: Skin is warm and dry. No rash noted. She is not diaphoretic. No erythema. No pallor. Psychiatric: She has a normal mood and affect. Her behavior is normal. Judgment and thought contentnormal. Nursing note and vitals reviewed. Labs:Reviewed Radiology: EKG: None noted in review Floyd Vega NP 08/18/2017 Cosigned by Randolph Goodson MD at 08/24/2017 6:31 AM EST documented in this encounter Procedure Notes * Bennett Jimenez MD - 08/18/2017 2:54 PM EST DATE OF OPERATION: 08/18/2017 PREOPERATIVE DIAGNOSIS: Multiple scalp masses. POSTOPERATIVE DIAGNOSIS: Multiple scalp masses. PROCEDURE PERFORMED: Excisional biopsy of scalp mass x3 (1 cm, 3 cm, 4 cm). ESTIMATED BLOOD LOSS: 5 mL SPECIMENS: Scalp masses x3. ANESTHESIA: MAC plus local. DETAILS OF PROCEDURE: The patient was taken to the operating room and placed in supine position on the operating table. After induction of MAC anesthesia, the patient's scalp was shaved and prepped in standard surgical fashion. The lesions that were marked preoperatively were identified, and these were each infiltrated with 0.5% Marcaine with epinephrine. Attention was first turned to the largestone, which was towards the front or front of the skull. A transverse incision was made over this, and this was deepened through the dermis. The sac was easily identified, dissected to its deeper attachments, and passed off the table as a specimen. Hemostasis obtained with electrocautery. The wound was then closed with 3-0 Vicryl subdermal sutures. Attention was then turned to the more posteriorlylocated one. Again, this was preoperatively marked, a transverse incision was made. This was deepened through the dermis, and the cyst was dissected free of its deeper attachments, passed off the table as a specimen. Hemostasis was obtained. This wound was also closed with 3-0 Vicryl subdermal sutures. Finally, the smallest lesion was identified, a transverse incision was made. This was deepened through the dermis. The cyst was completely dissected free of its deeper attachments and passed off the table as a specimen. Hemostasis obtained with the Bovie electrocautery. This was closed as well with the dermal stitches. At the end the case, all needle, sponge and instrument counts were correct. The patient tolerated the procedure well and was transferred awake, alert, and in stable condition. Carlos Jimenez M.D. By: Wilmer Job ID: [id number] Doc ID: [id number] * Bennett Jimenez MD - 08/18/2017 2:23 PM EST [facility] OPERATIVE/PROCEDURE NOTE Marycruz Echeverria August 18, 2017 Body mass index is 28.21 kg/m??. Active Hospital Problems Diagnosis ??? *Scalp mass PRE-OP DIAGNOSIS: Mass of scalp [R22.0] POST-OP DIAGNOSIS: Mass of scalp [R22.0] PROCEDURE(S): Procedure(s): EXCISIONAL BIOPSY SCALP MASS x3 SURGEON(S): Surgeon(s) and Role: * Bennett Jimenez MD - Primary OR STAFF: Account Service Associate: Iris Stephens RN Scrub Villalobos: Keke Osborne CHIEF ACCOUNTANT Scrub Assist: Yanelis Johnson RN ANESTHESIA: Monitored Anesthesia Care SPECIMENS: ID Type Source Tests Collected by Time Destination 1 : cysts of the head Tissue Head PATHOLOGY TISSUE REQUEST Bennett Jimenez MD 08/18/2017 1400 ESTIMATED BLOOD LOSS: 5 mL FINDINGS: 1cm, 3cm, 4cm DISPOSITION/POST PROC COURSE: Stable to Post Anesthesia Care Unit Bennett Jimenez MD Date: 08/18/2017 documented in this encounter Nursing Notes * Nadia Rankin RN - 08/18/2017 2:53 PM EST Patient and patient's responsible libertarian given discharge instructions, verbalized understanding and agreed with treatment plan. 1 printed rx for percocet given. Instructed not to drink alcohol, drive or take tylenol while taking narcotic. Patient drinking without difficulty. Patient wheeled out of SDS in stable condition with visitor. * Carley Qiu RN - 08/15/2017 4:49 PM EST PREPARING FOR YOUR SURGERY Date of Surgery 2/2 Medications ??? Take the following pills with a small sip of water on the morning of surgery: Levothyroxine Food, Drinks, Tobacco ??? For your safety, do not eat any food or drink anything after midnight. This includes chewing gum, mints, candy, chewing tobacco and dip. You may have water only 4 hours prior to surgery start time unless instructed by your surgeon. ??? For tobacco users: do not smoke or use any type of tobacco products within 24 hours prior to surgery. Smoking will also slow your rate of healing, so it is advised that you do not smoke during the healing process. No beer, wine or alcohol 24 hours prior to surgery. Computer Training Specialist ??? On the day of surgery, it is important to have a Computer Training Specialist, someone who is 18 years or older, to accompany you and remain in the facility for the duration of your surgery. This person should be available for the Perioperative Team, which includes your surgeon, to communicate with before, during and after your surgery. Someone should also remain with you for [address] you and make sure you are SAFE during that time. ??? A parent must accompany a child scheduled for surgery and plan to stay at the hospital until the child is discharged. If your takes a special type of nipple or baby bottle, please bring that with you. If your child has a favorite security item such as a blanket or a special toy, please feel free to bring that with you. ??? Please do not bring children with you to the hospital or surgery center. Hygiene ??? You may brush your teeth and gargle the morning of surgery. Do not swallow water. ??? Please shower the morning of surgery or the night before. Do not wear makeup (including eye makeup) lotion, powder or deodorant. Please do not shave the operative extremity or near the operative extremity. Personal Items ??? Please wear simple, loose fitting clothing to the hospital. Do not bring valuables (money, credit cards, check books, etc.) or wear any jewelry on day of surgery. Remove all body piercings prior to arrival. All jewelry must be removed to avoid injury. We will not tape wedding rings/bands. ??? If you have dentures, they may be removed before going into the operating room, and we will provide a container for them. If you wear contact lenses or glasses, they must be removed. Please bringa case for them. ??? Do not remove hearing aids. You will wear them to surgery. Bring with You ?? If you have a Living Will and Durable Power of [employer] for Healthcare, please bring a copy. ??? If having surgery at the hospital and you wear CPAP or BIPAP, please bring your mask and the machine settings (not the actual machine) with you to the hospital on the day of your procedure. The hospital will supply a machine to use during your hospital stay. ??? If your procedure is taking place at a surgery center, you must bring your CPAP or BIPAP with you. ??? If you wear oxygen, please bring it with you to use during your travel to and from the hospital. Following your admission, the hospital will supply oxygen for your use. Notify the Surgeon ??? For your safety, notify your surgeon if you develop any illness between now and surgery time --cough, cold, fever, sore throat, nausea, vomiting, etc. Questions or Concerns? If you have any questions or concerns, feel free to call the contact number. We want to make sure you feel safe and have an excellent experience while you are here. Same Day Surgery Unit - [facility] at [phone]; [place]: Entrance 1A, go to [address] [place] [address] on the [facility] nurse's station documented in this encounter Plan of Treatment Not on file documented as of this encounter Procedures Procedure Name Priority Date/Time Associated Diagnosis Comments PATHOLOGY TISSUE REQUEST Routine 08/18/2017 2:00 PM EST Mass of scalp EXCISION OF MASS OR SKIN LESION 08/18/2017 1:35 PM EST Mass of scalp POCT URINE Routine 08/18/2017 12:28 PM EST Preop testing Scalp mass documented in this encounter Results * PATHOLOGY TISSUE REQUEST (08/18/2017 2:00 PM EST) CASE REPORT Surgical Pathology ?Case: [id number] ? Authorizing Provider: ??Bennett Jimenez MD ? Collected: ? 08/18/2017 1400 ? Ordering Location: ? [facility] ?Received: ?08/19/2017 0828 ? Pathologist: ? Andry, Nadia Caro, ? MD ? Specimen: ?Head, cysts of the head ? 08/22/2017 12:17 PM [facility] FINAL DIAGNOSIS Cyst of head, excision: - Benign pilar cysts. 08/22/2017 12:17 PM [facility] S DESCRIPTION Received in formalin labeled with the patient's name and designated cyst of the head are three glistening long-white to carrizales-long cysts 1.4 to 2.1 cm in greatest dimension. One contains uniform, soft pale long material and the other two soft, carrizales-long material. Felling Bucking Supervisor sections of each in two cassettes, largest cyst in A1. / CDM 08/22/2017 12:17 PM [facility] MICROSCOPIC DESCRIPTION Microscopic examination is performed and the findings corroborate the diagnosis. 08/22/2017 12:17 PM [facility] FLOW CYTOMETRY SUMMARY 08/22/2017 12:17 PM [facility] EMBEDDED IMAGES 08/22/2017 12:17 PM [facility] Tissue SPECIMEN FROM HEAD AND NECK STRUCTURE / Unknown 08/18/2017 2:00 PM EST 08/19/2017 8:28 AM EST us Bennett Jimenez MD PATHOLOGY ORDERABLES Final Resul t Performing Organization Address City/[facility]/ZIP Co de Phone Number [facility] [address] [place] [address] * POCT URINE (08/18/2017 12:28 PM EST) Preg Test, Ur neg POS/NEG [facility] Lot Number [id number] [facility] Expiration Date 11/13/2018 [facility] SeriAl # [facility] Control Line Yes YES/NO [facility] 08/18/2017 12:2 8 PM EST us Sandra Alvarez LAMP SHADE SEWER POINT OF CARE TEST ORDERABLES Final Result Performing Organization Address [facility] Co de Phone Number [facility] [address] [place] [address] documented in this encounter Visit Diagnoses Diagnosis Scalp mass- Primary Localized superficial swelling, mass, or lump Preop testing Preoperative examination, unspecified Scalp mass Localized superficial swelling, mass, or lump Mass of scalp Localized superficial swelling, mass, or lump documented in this encounter Administered Medications Inactive Administered Medications - up to 1 most recent administrations Medication Order MAR Action Action Date Dose Rate Site famotidine (PEPCID) injection 20 mg 20 mg, Intravenous, PREPROCEDURE, 1 dose, Starting on Mon08/18/17 at 1201, Until Mon08/18/17 at 1212, pre-op, Slow IV push (greater than 2 minutes). To be given in SDS/Pre-op Hold Use 10 mL normal saline to dilute and administer famotidine IV, Pre-op (Holding/SDS Meds) Given 08/18/2017 12:12 PM EST 20 mg lactated Ringers infusion Intravenous, at 100 mL/hr, PREPROCEDURE CONTINUOUS, Starting on Mon08/18/17 at 1201, Until Mon08/18/17 at 1854, To be given in SDS/Pre-op Hold, Pre-op (Holding/SDS Meds) New Bag 08/18/2017 1:29 PM EST ondansetron (ZOFRAN) injection 4 mg 4 mg, Intravenous, PRN, 1 dose, Starting on Mon08/18/17 at 1421, Until Mon08/18/17 at 1854, Nausea, PACU ondansetron (ZOFRAN-ODT) disintegrating tablet 8 mg 8 mg, Oral, PRN, 1 dose, Starting on Mon08/18/17 at 1421, Until Mon08/18/17 at 1854, Nausea, Dissolve in mouth, PACU documented in this encounter Active and Recently Administered Medications Times are shown in EST. Scheduled Medication Order 08/16/2017 08/17/2017 08/18/2017 acetaminophen (OFIRMEV) infusion 1,000 mg 1,000 mg, Intravenous, ONCE, 1 dose, On Mon08/18/17 at 1430, Administer over 15 Minutes, Use PRN for any pain if pt has not received acetaminophen products Maximum adult dose of acetaminophen is 4000 mg from all sources in 24 hours. , PACU 1430 (Due) ceFAZolin (ANCEF) IVPB 2 g (COMPLETED) 2 g, Intravenous, ONCE, 1 dose, On Mon08/18/17 at 1345, Administer over 30 Minutes, Intra-op 1344 (Given - Provid er: Kofi Jane CRNA) PRN Medication Order 08/16/2017 08/17/2017 08/18/2017 bupivacaine (MARCAINE) 0.5 % (5 mg/mL) injection (CANCELED) ONCE PRN, 1 dose, Starting on Mon08/18/17 at 1406, Until Mon08/18/17 at 1406, Intra-op 1406 (Given - Provid er: Bennett Jimenez MD) dimenhyDRINATE (DRAMAMINE) injection 12.5-25 mg 12.5-25 mg, Intravenous, PRN, 2 doses, Starting on Mon08/18/17 at 1421, Until Mon08/18/17 at 1854, Nausea, For persistent nausea unrelieved by other antiemetics. Begin with lowest dose unless otherwise directed. Give remainder of dose if nausea unrelieved in 20 minutes., PACU famotidine (PEPCID) injection 20 mg (COMPLETED) 20 mg, Intravenous, PREPROCEDURE, 1 dose, Starting on Mon08/18/17 at 1201, Until Mon08/18/17 at 1212, pre-op, Slow IV push (greater than 2 minutes). To be given in SDS/Pre-op Hold Use 10 mL normal saline to dilute and administer famotidine IV, Pre-op (Holding/SDS Meds) 1212 (Given - Provid er: Jennifer Waller RN) fentaNYL (SUBLIMAZE) injection 25 mcg 25 mcg, Intravenous, EVERY 5 MIN PRN, 4 doses, Starting on Mon08/18/17 at 1421, Until Mon08/18/17 at 1854, Pain, may give 50 mcg at a time for severe pain do not exceed 100mcg, For initial pain. Maximum dose not to exceed 100 mcg., PACU lactated Ringers infusion Intravenous, at 100 mL/hr, PREPROCEDURE CONTINUOUS, Starting on Mon08/18/17 at 1201, Until Mon08/18/17 at 1854, To be given in SDS/Pre-op Hold, Pre-op (Holding/SDS Meds) 1209 (New Bag - Prov ider: Jennifer Waller RN)1329 (New Bag - Provider: Kofi Jane CRNA)1415 (Anesthesia Volume Adjustment - Provider: Kofi Jane CRNA)1452 (Stopped - Provider: Nadia Rankin RN) meperidine (DEMEROL) injection (PF) 12.5 mg 12.5 mg, Intravenous, ONCE PRN, 1 dose, Starting on Mon08/18/17 at 1421, Until Mon08/18/17 at 1854, Shivering, Shivering, unless otherwise ordered by Anesthesia Coordinator, PACU morphine injection 2 mg 2 mg, Intravenous, EVERY 10 MIN PRN, Starting on Mon08/18/17 at 1421, Until Mon08/18/17 at 1854, Pain, can give 4mg at a time every 10 minutes if needed, Do not exceed 20 mg in one hour unless otherwise ordered by the Anesthesia Coordinator For pain unrelieved by fentanyl, can give 4mg IV morphine at a time every 10 minutes if needed, PACU ondansetron (ZOFRAN) injection 4 mg(Linked Group 1) 4 mg, Intravenous, PRN, 1 dose, Starting on Mon08/18/17 at 1421, Until Mon08/18/17 at 1854, Nausea, PACU ondansetron (ZOFRAN-ODT) disintegrating tablet 8 mg(Linked Group 1) 8 mg, Oral, PRN, 1 dose, Starting on Mon08/18/17 at 1421, Until Mon08/18/17 at 1854, Nausea, Dissolve in mouth, PACU oxyCODONE (ROXICODONE) immediate release tablet 5 mg 5 mg, Oral, PRN, 2 doses, Starting on Mon08/18/17 at 1421, Until Mon08/18/17 at 1854, Pain, If patient has received IV acetaminophen (OFIRMEV): Give 5 mg if patient able to take oral medication. Reassess pain in 15 minutes and give additional 5 mg if pain not improved., PACU oxyCODONE-acetaminophen (PERCOCET) 5-325 mg per tablet 1 Tab 1 Tablet, Oral, PRN, 2 doses, Starting on Mon08/18/17 at 1421, Until Mon08/18/17 at 1854, Pain, Give 1 tablet if patient able to take oral medication. Reassess pain in 15 minutes and give 2nd tablet if pain not improved. If patient has received IV acetaminophen (OFIRMEV), give oxycodone (ROXICODONE). Maximum adult dose of acetaminophen is 4000 mg from all sources in 24 hours. , PACU promethazine (PHENERGAN) injection 6.25-12.5 mg 6.25-12.5 mg, Intravenous, PRN, 2 doses, Starting on Mon08/18/17 at 1421, Until Mon08/18/17 at 1854, Nausea, For nausea unrelieved by Zofran. Begin with lowest dose unless otherwise directed. Give remainder of dose if nausea unrelieved in 20 minutes. Not to exceed 25 mg in one hour unless otherwise ordered by Anesthesia Coordinator. VESICANT , PACU Linked Groups Order Group 1: ondansetron (ZOFRAN) injection 4 mgJump to med 4 mg, Intravenous, PRN, 1 dose, Starting on Mon08/18/17 at 1421, Until Mon08/18/17 at 1854, Nausea, PACU Or ondansetron (ZOFRAN-ODT) disintegrating tablet 8 mgJump to med 8 mg, Oral, PRN, 1 dose, Starting on Mon08/18/17 at 1421, Until Mon08/18/17 at 1854, Nausea, Dissolve in mouth, PACU documented in this encounter Orders Medications Ordered That Parminder ht Not Have Been Administered Count Last Ordered Date First Ordered Date acetaminophen (OFIRMEV) infusion 1,000 mg 1 08/18/2017 bupivacaine (MARCAINE) 0.5 % (5 mg/mL) injection 1 08/18/2017 ceFAZolin (ANCEF) IVPB 2 g 1 08/18/2017 dimenhyDRINATE (DRAMAMINE) i njection 12.5-25 mg 1 08/18/2017 fentaNYL (SUBLIMAZE) injection 25 mcg 1 08/2017 meperidine (DEMEROL) injecti on (PF) 12.5 mg 1 08/18/2017 morphine injection 2 mg 1 08/18/2017 ondansetron (ZOFRAN) injection 4 mg 1 08/18 ondansetron (ZOFRAN-ODT) dis integrating tablet 8 mg 1 08/18/2017 oxyCODONE (ROXICODONE) immed iate release tablet 5 mg 1 08/18/2017 oxyCODONE-acetaminophen (PER COCET) 5-325 mg per tablet 1 Tab 1 08/18/2017 promethazine (PHENERGAN) inj ection 6.25-12.5 mg 1 08/18/2017 documented in this encounter Care Teams Job Press Operator Relationship Specialty Start Date End Date Aldair Sands [address] [place] [id number] PCP - General Family Medicine 09/19/16 documented as of this encounter
--- OUTSIDE RECORDS SUMMARY | 2024-06-18 10:34 | XMS_ITS | Encounter Summary ---
Author Organization [place] [address] Care Team Providers Care Supervisor Industrial Arts Education Name Role Phone Aldair Sands Primary Care Provider [phone] Reason for Visit * Reason Onset Date Comments Surgery 07/14/2017 Encounter Details Date Type Department Care Team (Late st Contact Info) Description 07/14/2017 Telephone SEP Gen Surg EDG [address] [facility] [address] [place] [address] Daisy Jansen RMA Surgery Social History Tobacco Use Types Packs/Day Years [...] on file documented as of this encounter Miscellaneous Notes * Telephone Encounter - Daisy Jansen RMA - 07/14/2017 1:58 PM EST Surgery Slip Information Dr: Barbara Procedure: Exc bx scalp mass x3 (2cmx2, 3cm) Arrival Date & Time: 08/18/17 @ 11:45 Notified: 07/14/2017 NPO: yes Pretest: Dept to call Hospital/location: [facility] documented in this encounter Plan of Treatment Not on file documented as of this encounter Visit Diagnoses Not on filedocumented in this encounter Care Teams Supervisor Industrial Arts Education Relationship Specialty Start Date End Date Aldair Sands [address] [place] [address] PCP - General Family Medicine 09/19/16 documented as of this encounter
--- OUTSIDE RECORDS SUMMARY | 2024-06-18 10:34 | XMS_ITS | Encounter Summary ---
Author Organization [facility] [place] [address] Care Team Providers Care Line Dancer Name Role Phone Aldair Sands Primary Care Provider Encounter Details Date Type Department Care Team (Latest Contact Info) Description 03/04/2020 Travel Social History Tobacco Use Types Packs/Day Years [...] on file documented as of this encounter Plan of Treatment Not on file documented as of this encounter Visit Diagnoses Not on filedocumented in this encounter Care Teams Line Dancer Relationship Specialty Start Date End Date Aldair Sands [address] [place] [address] PCP - General Family Medicine 09/19/16 documented as of this encounter
--- OUTSIDE RECORDS SUMMARY | 2024-06-18 10:34 | XMS_ITS | Referral Summary ---
Author Organization [facility] Address [address] [place] [address] Phone Care Team Providers Care Pyrotechnics Press Tender Name Role Phone Aldair Sands Primary Care Provider [phone] Allergies Active Allergy Reactions Criticality Noted Date Comments Amoxicillin Rash Medium 09/08/2016 Lidocaine Palpitations High 09/08/2016 Medications levothyroxine (SYNTHROID) 100 mcg Oral Tablet Take 100 mcg by mouth daily. Active norgestimate-eth inyl estradiol (ORTHO TRI-CYCLEN;TRI-S PRINTEC) 0.18/0.215/0.25 mg-35 mcg (28) Oral Tablet Take 1 Tab by mouth daily. Active Active Problems Problem Noted Date Diagnosed Date Scalp mass 07/06/2017 Biliary colic 09/08/2016 Social History Tobacco Use Types Packs/Day Years Used Date Smoking Tobacco: Never Smokeless Tobacco: Never Alcohol Use Standard Drinks/Week Comments Yes 1 (1 standard drink = 0.6 oz pur e alcohol) occ Comments No Sex and Gender Information Value Date Recorded Sex Assigned at Not on file Legal Sex Female 6:46 AM EDT Gender Identity Not on file Sexual Orientation Not on file Last Filed Vital Signs Vital Sign Reading [...] 08/18/2017 11:55 AM EST Plan of Treatment Not on file Insurance [employer] PPO [employer] PPO Care Teams Pyrotechnics Press Tender Relationship Specialty Start Date End Date Aldair Sands [address] [phone] PCP - General Family Medicine 09/19/16
--- OUTSIDE RECORDS SUMMARY | 2024-06-18 10:34 | XMS_ITS | Encounter Summary ---
Author Organization [place] [address] Care Team Providers Care Dietetic Tech Name Role Phone Aldair Sands Primary Care Provider Reason for Visit * Auth/Cert/Inpt Specialty Diagnoses / Procedures Referred By Contac t Referred To Contact Diagnoses Mass of scalp Mass of scalp [R22.0] Procedures EXCISIONAL BIOPSY SCALP MASS x3 Referral ID Status Reason Start Date Expiration Date Visits Re quested Visits Authorized [id number] 1 1 Encounter Details Date Type Department Care Team (Late st Contact Info) Description 08/18/2017 1:15 PM EST - 08/18/2017 2:00 PM EST Surgery [facility] [address] [facility] [place] [address] Bennett Jimenez MD [address] [place] [place], [place] [id number] EXCISION OF MASS OR SKIN LESION Surgery Details Date/Time Status Location OR Service Patient Class Case Class Case Type Trauma Case? 08/18/2017 1:15 PM Posted [facility] OR 03 General Same Day Surgery N/A Panel 1 Procedure LRB Anes Op Region Wound Class Comments EXCISION OF MASS OR SKIN LESION N/A Monitored Anesthesia Care Dirty or Infected EXCISIONAL BIOPSY SCALP MASS x3 Surgeon Surgeon Role Service Panel Bennett Jimenez MD Primary General 1 documented in this encounter Social History Tobacco [...] Sign Reading Time Taken Comments Blood Pressure 118/78 08/18/2017 11:55 AM EST Pulse 68 08/18/2017 11:55 AM EST Temperature 36.2 ??C (97.2 ??F) 08/18/2017 11:[address] Respiratory Rate 18 08/18/2017 11:55 AM EST Oxygen Saturation 100% 08/18/2017 11:55 AM EST Inhaled Oxygen Concentration - - Weight 84.1 kg (185 lb 8 oz) 08/18/2017 11:55 AM EST Height 172.7 cm (5' 8 ) 08/18/2017 11:55 AM EST Body Mass Index 28.21 08/18/2017 11:55 AM EST documented in this encounter Discharge Instructions * Discharge Instructions* Bennett Jimenez MD - 08/18/2017 2:23 PM EST +++++++++++++++++++++++++++++++++++++++++++++++++++++++++++++++++++ +++++++++++++++++++++++++++++++++++++++++++++++++++++++++++++++++++ [facility] Discharge Instructions - Following Anesthesia We [...] our office at . [facility] Call Surgeon if you have: ?? [...] or polysporin as needed 6. Please call [phone] for a follow-up appointment in 7 to [...] Code Departure Means Destination Home or Self [facility] documented in this encounter H&P Notes * Floyd Vega NP - 08/18/2017 12:03 PM EST [facility] History and Physical Name: Marycruz Echeverria ADDRESS: [address] [place] [address] : 1980 AGE: 37 y.o. Assessment: Mass of scalp [R22.0] Plan: Procedure(s): EXCISIONAL BIOPSY SCALP MASS x3 per Bennett Jimenez MD Admitting Physician: Bennett Jimenze MD Date of Admit: 08/18/2017 Subjective SUBJECTIVE [...] CHOLECYSTECTOMY ; Surgeon: Bennett Jimenez MD; Location: [facility] MAIN OR; Service: General ??? [...] Carlos Jimenez M.D. By: Wilmer Job ID: [id number] Doc ID: [id number] * Bennett Jimenez MD - 08/18/2017 2:23 PM EST [facility] OPERATIVE/PROCEDURE NOTE Marycruz Echeverria August 18, 2017 Body mass index is 28.21 kg/m??. Active Hospital Problems Diagnosis ??? *Scalp mass PRE-OP DIAGNOSIS: Mass of scalp [R22.0] POST-OP DIAGNOSIS: Mass of scalp [R22.0] PROCEDURE(S): Procedure(s): EXCISIONAL BIOPSY SCALP MASS x3 SURGEON(S): Surgeon(s) and Role: * Bennett Jimenez MD - Primary OR STAFF: Executive Coordinator: Iris Stephens RN Scrub Villalobos: Keke Osborne, HISTORY INSTRUCTOR Scrub Assist: Yanelis Johnson RN ANESTHESIA: Monitored [...] 2:53 PM EST Patient and patient's responsible green party given discharge instructions, verbalized understanding and agreed with treatment plan. 1 printed rx for percocet given. Instructed not to drink alcohol, drive or take tylenol while taking narcotic. Patient drinking without difficulty. Patient wheeled out of [facility] in stable condition with visitor. * Carley [...] or alcohol 24 hours prior to surgery. Commercial Real Estate Attorney ??? On the day of surgery, it is important to have a Commercial Real Estate Attorney, someone who is 18 years or older, [...] a Living Will and Durable Power of Jewelry Department Supervisor for Healthcare, please bring a copy. ??? [...] are here. Same [facility] - [place] at [phone]; [place]: Entrance 1A, go to [address] [place] [address] on the [facility] nurse's station documented in this encounter [...] PM EST) CASE REPORT Surgical Pathology ?Case: [id number] ? Authorizing Provider: ??Bennett Jimenez MD ? Collected: ? 08/18/2017 1400 ? Ordering Location: ? [facility] ?Received: ?08/19/2017 0828 ? Pathologist: ? Nadia Wilde, ? MD ? Specimen: ?Head, cysts of the head ? 08/22/2017 12:17 PM [facility] FINAL DIAGNOSIS Cyst of head, excision: - Benign pilar cysts. 08/22/2017 12:17 PM [facility] S DESCRIPTION Received in formalin labeled with the patient's name and designated cyst of the head are three glistening long-white to carrizales-long cysts 1.4 to 2.1 cm in greatest dimension. One contains uniform, soft pale long material and the other two soft, carrizales-long material. Dance Historian sections of each in two cassettes, largest cyst in A1. / CDM 08/22/2017 12:17 PM [facility] MICROSCOPIC DESCRIPTION Microscopic examination is performed and the findings corroborate the diagnosis. 08/22/2017 12:17 PM [facility] FLOW CYTOMETRY SUMMARY 08/22/2017 12:17 PM [facility] EMBEDDED IMAGES 08/22/2017 12:17 PM EST [facility] Tissue SPECIMEN FROM HEAD AND NECK STRUCTURE / Unknown 08/18/2017 2:00 PM EST 08/19/2017 8:28 AM EST Bennett Jimenez MD PATHOLOGY ORDERABLES Final Resul t Performing Organization Address [facility] Co de Phone Number [facility] [address] [place] [address] * POCT URINE (08/18/2017 12:28 PM EST) Preg Test, Ur neg POS/NEG [facility] Lot Number [id number] [facility] Expiration Date 11/13/2018 [facility] SeriAl # [facility] Control Line Yes YES/NO [facility] 08/18/2017 12:2 8 PM EST us Sandra Alvarez APRN POINT OF CARE TEST ORDERABLES Final Result Performing Organization Address [facility] Co de Phone Number [facility] [address] [place] [address] documented in this encounter Visit Diagnoses Diagnosis Scalp mass- Primary Localized superficial swelling, mass, or lump Preop testing Preoperative examination, unspecified Mass of scalp Localized superficial swelling, mass, or lump Mass of scalp Localized superficial swelling, mass, or lump documented in this encounter Administered Medications Inactive Administered Medications - up to 1 most recent administrations Medication Order MAR Action Action Date Dose Rate Site bupivacaine (MARCAINE) 0.5 % (5 mg/mL) injection ONCE PRN, 1 dose, Starting on Mon08/18/17 at 1406, Until Mon08/18/17 at 1406, Intra-op Given 08/18/2017 2:06 PM EST 4 mL famotidine (PEPCID) injection 20 mg 20 mg, [...] acetaminophen (OFIRMEV) infusion 1,000 mg 1 08/18/2017 ceFAZolin (ANCEF) IVPB 2 g [...] 08/18/2017 documented in this encounter Care Teams Dietetic Tech Relationship Specialty Start Date End Date Aldair Sands [address] [place] [phone] PCP - General Family Medicine 09/19/16 documented as of this encounter
--- OUTSIDE RECORDS SUMMARY | 2024-06-18 10:34 | XMS_ITS | Encounter Summary ---
Author Organization [facility] [place] [address] Care Team Providers Care Corporate Associate Name Role Phone Aldair Sands Primary Care Provider Encounter Details Date Type Department Care Team (Latest Contact Info) Description 08/30/2022 Travel Social History Tobacco Use Types Packs/Day [...] PM EST documented as of this encounter Plan of Treatment Not on file documented as of this encounter Visit Diagnoses Not on filedocumented in this encounter Care Teams Corporate Associate Relationship Specialty Start Date End Date Aldair Sands [address] [place] [phone] PCP - General Family Medicine 09/19/16 documented as of this encounter
--- OUTSIDE RECORDS SUMMARY | 2024-06-18 10:35 | XMS_ITS | Encounter Summary ---
Author Organization [place] [address] Care Team Providers Care Vp Genetic Name Role Phone Aldair Sands Primary Care Provider [phone] Reason for Visit * Reason Comments Other previous patient, sc alp cysts * Consultation (Routine) - Closed Specialty Diagnoses / Procedures Referred By Contac t Referred To Contact Surgery / General Surgery Diagnoses gallstones Procedures NEW PATIENT Bennett Jimenez MD [address] [place] [address] Phone: tel: fax: Referral ID Status Reason Start Date Expiration Date Visits Re quested Visits Authorized [id number] Closed 09/08/2016 09/08/2017 99 99 Encounter Details Date Type Department Care Team (Late st Contact Info) Description 07/06/2017 9:20 AM EST Office Visit SEP Gen Surg [address] [address] Bennett Jimenez MD [address] [facility] [address] [place] [phone] Scalp mass Social History Tobacco Use Types Packs/Day Years [...] Sign Reading Time Taken Comments Blood Pressure 110/72 07/06/2017 9:53 AM EST Pulse 68 07/06/2017 9:53 AM EST Temperature - - Respiratory Rate - - Oxygen Saturation - - Inhaled Oxygen Concentration - - Weight 86.9 kg (191 lb 8 oz) 07/06/2017 9:53 AM EST Height 172.7 cm (5' 8 ) 07/06/2017 9:53 AM EST Body Mass Index 29.12 07/06/2017 9:53 AM EST documented in this encounter Progress Notes * Bennett Jimenez MD - 07/06/2017 9:20 AM EST Subjective Subjective: Patient ID: Marycruz Echeverria is a 37 y.o. female. Chief Complaint Patient presents with ??? Other previous patient, scalp cysts HPI Patients past medical, family and social histories were reviewed and updated. There were no changesexcept as noted. 37-year-old female with masses of the scalp. Present for the past several years. Increasing in size, now with some tenderness. Also with pain and tenderness with combing or brushing her hair. Allergies Allergen Reactions ??? Lidocaine Palpitations ??? Amoxicillin Rash Current Outpatient Prescriptions: ??? levothyroxine (SYNTHROID) 100 mcg Oral Tablet, Take 100 mcg by mouth daily., Disp: , Rfl: ??? norgestimate-ethinyl estradiol (ORTHO TRI-CYCLEN;TRI-SPRINTEC) 0.18/0.215/0.25 mg-35 mcg (28) Oral Tablet, Take 1 Tab by mouth daily., Disp: , Rfl: Patient Active Problem List Diagnosis ??? Biliary colic Social History Social History ??? Marital status: Spouse name: N/A ??? Number of children: N/A ??? Years of education: N/A Occupational History ??? Not on file. Social History Main Topics ??? Smoking status: Never Smoker ??? Smokeless tobacco: Never Used ??? Alcohol use 0.6 oz/week 1 Glasses of wine per week Comment: occ ??? Drug use: No ??? Sexual activity: Not on file Other Topics Concern ??? Not on file Social History Narrative ??? No narrative on file Review of Systems Constitutional: Negative for activity change, appetite change, chills and fever. HENT: Negative for congestion, nosebleeds and sore throat. Eyes: Negative for redness and visual disturbance. Respiratory: Negative for cough, shortness of breath and wheezing. Cardiovascular: Negative for chest pain, palpitations and leg swelling. Gastrointestinal: Negative for abdominal distention, abdominal pain and blood in stool. Genitourinary: Negative for dysuria, hematuria and urgency. Musculoskeletal: Negative for arthralgias, back pain and neck pain. Skin: Negative for color change, pallor and rash. Neurological: Negative for tremors, seizures and syncope. Hematological: Negative for adenopathy. Does not bruise/bleed easily. Objective Objective: Vitals: 07/06/17 0953 BP: 110/72 Pulse: 68 Weight: 191 lb 8 oz (86.9 kg) Height: 5' 8 (1.727 m) Body mass index is 29.12 kg/m??. Physical Exam Constitutional: She is oriented to person, place, and time. She appears well- developed and well-nourished. HENT: Head: Normocephalic and atraumatic. No adenopathy present Multiple scalp masses present. Posterior scalp mass: Approximately 3 cm, fixed Anterior scalp mass: Approximately 2 cm, fixed Right lateral scalp mass: Approximately 2 cm, fixed Eyes: Conjunctivae are normal. Pupils are equal, round, and reactive to light. Neck: Normal range of motion. Cardiovascular: Normal rate and regular rhythm. Pulmonary/Chest: Effort normal and breath sounds normal. Abdominal: Soft. Bowel sounds are normal. Musculoskeletal: Normal range of motion. Neurological: She is alert and oriented to person, place, and time. Skin: Skin is warm. Psychiatric: She has a normal mood and affect. Her behavior is normal. Thought content normal. Assessment and Plan: Impression: Scalp masses Plan: Proceed to the operating for excisional biopsy of scalp mass ??3. Risks discussed include bleeding, infection, seroma, recurrence, and hair loss. No Follow-up on file. documented in this encounter Miscellaneous Notes * Patient Instructions - Sasha Huddleston RMA - 07/06/2017 9:20 AM EST You may be contacted by mail or e-mail to participate in a patient satisfaction survey regarding your office visit today. We value your opinion and depend on your feedback to make improvements and provide you with the best possible experience while receiving high quality medical treatment. Your time in completing this survey is greatly appreciated. documented in this encounter Plan of Treatment Not on file documented as of this encounter Visit Diagnoses Diagnosis Scalp mass Localized superficial swelling, mass, or lump documented in this encounter Care Teams Vp Genetic Relationship Specialty Start Date End Date Aldair Sands [address] [place] [address] PCP - General Family Medicine 09/19/16 documented as of this encounter
--- OUTSIDE RECORDS SUMMARY | 2024-06-18 10:35 | XMS_ITS | Encounter Summary ---
Author Organization [place] [address] Care Team Providers Care Supply Requirements Officer Name Role Phone Aldair Sands Primary Care Provider Reason for Visit * Auth/Cert/Inpt Specialty Diagnoses / Procedures Referred By Armandoac t Referred To Contact Diagnoses Biliary colic Biliary colic [K80.50] Procedures HI LAP,CHOLECYSTECTOMY LAPAROSCOPIC CHOLECYSTECTOMY POSSIBLE OPEN Referral ID Status Reason Start Date Expiration Date Visits Re quested Visits Authorized [id number] 1 1 Encounter Details Date Type Department Care Team (Late st Contact Info) Description 10/14/2016 12:15 PM EDT Anesthesia Event RADHA PERIOP [address] [phone] Brooks Ravi MD [address] [facility]. [place] [id number] Carie Boone, SEROLOGY TECHNICIAN [address] [facility] [address] [place] [id number] Anesthesia Record Procedure Summary Procedure Name Responsible Anesthesiologist Anesthesia Start Time Anesthesia Stop Time LAPAROSCOPIC CHOLECYSTECTOMY POSSIBLE OPEN (Abdomen) Brooks Ravi MD 10/14/16 1215 10/14/16 1320 Events Date Time Event Comment 10/14/2016 1112 1137 AN Equip Check 1215 An Start 1217 An Start Data 1217 Immediate Pre Anesthetic Ass es 1221 An Induction 1223 An Intubation 1225 Anesthesia Ready 1230 Incision 1310 An Extubation 1312 an stop data 1320 Handoff I completed my SBAR handoff to the receiving nurse which have included the followin. Identification of the patient, family, or patient surrogate 2. Identification of the responsible practitioner 3. Pertinent medical history 4. Surgical procedure and reason for procedure 5. Intraoperative anesthetic management 6. Expectations/Plans for the early post-procedure period 7. Opportunity for questions and acknowledgement of understanding from the receiving PACU/ICU preanalytics team lead 1320 An Stop Meds Name Total midazolam (VERSED) injection 1 mg/mL 2 m g propofol (DIPRIVAN) injection 150 mg fentaNYL 50 MCG/ML INJ 150 mcg HYDROmorphone (DILAUDID) injection 1 mg/ ml 1 mg rocuronium (ZEMURON) 10 mg/mL injection 20 mg succinylcholine (ANECTINE) 20 mg/mL inje ction 120 mg ephedrine injection 5 mg neostigmine (BLOXIVERZ) 1 mg/mL injectio n 4 mg glycopyrrolate (ROBINUL) injection 0.6 m g acetaminophen (OFIRMEV)1000 mg/100 mL in fusion 1,000 mg dexamethasone (DECADRON) injection 4 mg/ mL 4 mg ondansetron (ZOFRAN) injection 4 mg /2 m L 4 mg levOFLOXacin (LEVAQUIN) IVPB 500 mg 500 mg lactated ringers infusion 1,000 mL * Agents Name O2 Air Et Sevoflurane * Blood No blood administrations on file. Lines, Drains, and Airways Type Details Placement Removal Pedi/Infant Peripheral IV 10/14/16; 1122; 20; Right; Antecubital 10/14/16 1122 by Nadia Rankin RN 10/14/16 1530 by Bernie Kaufman, LAURA Airway Device: ETT- Cuffed; Size: 7 mm; Placement Date: 10/14/16; Placement Time: 1223; Removal Date: 10/14/16; Removal Time: 1310 10/14/16 1223 by Carie Boone CRNA 10/14/16 1310 by Carie Boone CRNA Incision/Procedural Site 10/14/16; 1230; Abdomen; 10/15/16; 0601 10/14/16 1230 by Jocy Musa RN 10/15/16 0601 by Discharge Provider, Automatic documented in this [...] on file documented as of this encounter OR Notes * Anesthesia Postprocedure Evaluation - Brooks Ravi MD - 10/14/2016 2:54 PM EDT Post-Anesthesia Evaluation Note Patient Name: Marycruz Echeverria Patient Date: October 14, 2016 Patient Location: [facility] Post OP Vitals: stable Level of Consciousness: awake Post Anesthesia Pain: adequate analgesia Airway Patency: patent Respiratory: spontaneous ventilation Cardiovascular: stable Hydration: euvolemic Nausea Controlled: yes * Anesthesia Preprocedure Evaluation - Brooks Ravi MD - 10/04/2016 4:06 PM EDT Pre-Anesthesia Evaluation Note Patient Name: Marycruz Echeverria Sex: female Patient : 1980 Age: 36 y.o. Patient Date: October 04, 2016 Procedure: LAPAROSCOPIC CHOLECYSTECTOMY POSSIBLE OPEN ?? Anesthesia Evaluation Patient summary reviewed, Nursing notes reviewed and Previous anesthesia No history of anesthetic complications Airway Mallampati: I TM distance: >3 FB Neck ROM: fullNo increased risk of difficult airway Dental - normal exam Pulmonary - negative ROS breath sounds clear to auscultation Cardiovascular - negative ROS (-) angina, BRODY Rhythm: regular Rate: normal Neuro/Psych (+) headaches, GI/Hepatic/Renal (+) , gallbladder problem, Endo/Other (+) hypothyroidism, : Current Body mass index is 28.89 kg/(m^2). Anesthesia Plan ASA 2 Anesthesia Plan: general Monitors: STD Anesthetic plan and risks discussed with patient. documented in this encounter Plan of Treatment Not on file documented as of this encounter Visit Diagnoses Not on filedocumented in this encounter Administered Medications Inactive Administered Medications - up to 1 most recent administrations Medication Order MAR Action Action Date Dose Rate Site acetaminophen (OFIRMEV) infusion PRN (Anesthesia), Starting on Mon10/14/16 at 1241, Until Mon10/14/16 at 1320, Administer over 15 Minutes, Anesthesia Intra-op Given 10/14/2016 12:41 PM EDT 1,000 mg dexamethasone (DECADRON) injection PRN (Anesthesia), Starting on Mon10/14/16 at 1227, Until Mon10/14/16 at 1320, Anesthesia Intra-op Given 10/14/2016 12:27 PM EDT 4 mg ePHEDrine injection Intravenous, PRN (Anesthesia), Starting on Mon10/14/16 at 1229, Until Mon10/14/16 at 1320, Anesthesia Intra-op Given 10/14/2016 12:29 PM EDT 5 mg fentaNYL (SUBLIMAZE) 50 mcg/mL injection Intravenous, PRN (Anesthesia), Starting on Mon10/14/16 at 1221, Until Mon10/14/16 at 1320, Anesthesia Intra-op Given 10/14/2016 1:08 PM EDT 25 mcg glycopyrrolate (ROBINUL) injection Intravenous, PRN (Anesthesia), Starting on Mon10/14/16 at 1255, Until Mon10/14/16 at 1320, Anesthesia Intra-op Given 10/14/2016 12:55 PM EDT 0.6 mg HYDROmorphone (DILAUDID) injection PRN (Anesthesia), Starting on Mon10/14/16 at 1240, Until Mon10/14/16 at 1320, Anesthesia Intra-op Given 10/14/2016 1:01 PM EDT 0.25 mg lactated ringers infusion Intravenous, at 100 mL/hr, PREPROCEDURE CONTINUOUS, Starting on Mon10/14/16 at 1047, Until Mon10/15/16 at 0602, To be given in SDS/Pre-op Holding Area, Pre-op (Holding/SDS Meds) New Bag 10/14/2016 12:55 PM EDT levOFLOXacin (LEVAQUIN) IVPB 500 mg 500 mg, Intravenous, ONCE PREPROCEDURE, 1 dose, On Mon10/14/16 at 1100, Administer over 60 Minutes, Administer 60 minutes pre-op, Pre-op (Antibiotic) Given 10/14/2016 12:24 PM EDT 500 mg midazolam (VERSED) injection Intravenous, PRN (Anesthesia), Starting on Mon10/14/16 at 1215, Until Mon10/14/16 at 1320, Anesthesia Intra-op Given 10/14/2016 12:15 PM EDT 2 mg neostigmine (BLOXIVERZ) injection PRN (Anesthesia), Starting on Mon10/14/16 at 1255, Until Mon10/14/16 at 1320, Anesthesia Intra-op Given 10/14/2016 12:55 PM EDT 4 mg ondansetron (ZOFRAN) 4 mg/2 mL injection PRN (Anesthesia), Starting on Mon10/14/16 at 1227, Until Mon10/14/16 at 1320, Nausea, Anesthesia Intra-op Given 10/14/2016 12:27 PM EDT 4 mg propofol (DIPRIVAN) injection Intravenous, PRN (Anesthesia), Starting on Mon10/14/16 at 1221, Until Mon10/14/16 at 1320, Anesthesia Intra-op Given 10/14/2016 12:21 PM EDT 150 mg rocuronium (ZEMURON) injection Intravenous, PRN (Anesthesia), Starting on Mon10/14/16 at 1221, Until Mon10/14/16 at 1320, Anesthesia Intra-op Given 10/14/2016 12:27 PM EDT 15 mg succinylcholine (ANECTINE) injection Intravenous, PRN (Anesthesia), Starting on Mon10/14/16 at 1221, Until Mon10/14/16 at 1320, Anesthesia Intra-op Given 10/14/2016 12:21 PM EDT 120 mg documented in this encounter Care Teams Supply Requirements Officer Relationship Specialty Start Date End Date Aldair Sands [address] [place] [id number] PCP - General Family Medicine 09/19/16 documented as of this encounter
--- OUTSIDE RECORDS SUMMARY | 2024-06-18 10:35 | XMS_ITS | Encounter Summary ---
Author Organization [place] [address] Care Team Providers Care Environmental Protection Officer Name Role Phone Aldair Sands Primary Care Provider Encounter Details Date Type Department Care Team (Late st Contact Info) Description 11/03/2016 Orders Only [facility] Gen Surg [address] [phone] Bennett Jimenez MD [address] [facility] [address] [place] [place], [place] [id number] Wound infection (Primary Dx) Social History Tobacco Use Types Packs/Day Years [...] on file documented as of this encounter Ordered Prescriptions Prescription Sig Dispense Quantity Refills Last Filled Start Date End Date ciprofloxacin HCl (CIPRO) 500 mg Oral TabletIndications:W ound infection Take 1 Tab by mouth every 12 hours for 7 days. 14 Tab 11/03/2016 11/10/2016 documented in this encounter Plan of Treatment Not on file documented as of this encounter Visit Diagnoses Diagnosis Wound infection- Primary Posttraumatic wound infection not elsewhere classified documented in this encounter Care Teams Environmental Protection Officer Relationship Specialty Start Date End Date Aldair Sands [address] [place] [address] PCP - General Family Medicine 09/19/16 documented as of this encounter
--- OUTSIDE RECORDS SUMMARY | 2024-06-18 10:35 | XMS_ITS | Encounter Summary ---
Author Organization [place] [address] Care Team Providers Care Belt Worker Name Role Phone Aldair Sands Primary Care Provider [phone] Reason for Visit * Reason Comments Post-Operative Exam 1st post op, alfonso bermudez Encounter Details Date Type Department Care Team (Late st Contact Info) Description 10/20/2016 8:50 AM EDT Office Visit [facility] Gen Surg [address] [phone] Bennett Jimenez MD [address] [place] [address] Biliary colic (Primary Dx) Social History Tobacco Use Types [...] Sign Reading Time Taken Comments Blood Pressure 110/78 10/20/2016 8:47 AM EDT Pulse 68 10/20/2016 8:47 AM EDT Temperature 36.7 ??C (98 ??F) 10/20/2016 8:47 AM EDT Respiratory Rate - - Oxygen Saturation - - Inhaled Oxygen Concentration - - Weight 86 kg (189 lb 11.2 oz) 10/20/2016 8:47 AM EDT Height 172.7 cm (5' 8 ) 10/20/2016 8:47 AM EDT Body Mass Index 28.84 10/20/2016 8:47 AM EDT documented in this encounter Progress Notes * Bennett Jimenez MD - 10/20/2016 8:50 AM EDT S/p lap shruthi. Tolerating diet. Pain improving. Preoperative symptoms resolving. Pathology noted. Incisions healing without evidence of infection. Expected post-operative course. Pain at incisions should improve with time. Incisions may feel hard . This is normal, and should dissipate with time. Follow up PRN documented in this encounter Miscellaneous Notes * Patient Instructions - Sasha Huddleston RMA - 10/20/2016 8:50 AM EDT You may be contacted by mail or [...] as of this encounter Visit Diagnoses Diagnosis Biliary colic- Primary Calculus of gallbladder without mention of cholecystitis or obstruction documented in this encounter Discontinued Medications Medication Sig Discontinue Reason Start Date End Da te oxyCODONE-acetaminophe n (PERCOCET) 5-325 mg Oral Tablet Take 1-2 Tabs by mouth every 4 hours as needed for Pain. DELETE-Therapy completed 10/14/2016 10/20/2016 documented as of this encounter Care Teams Belt Worker Relationship Specialty Start Date End Date Aldair Sands [address] [place] [address] PCP - General Family Medicine 09/19/16 documented as of this encounter
--- OUTSIDE RECORDS SUMMARY | 2024-06-18 10:35 | XMS_ITS | Encounter Summary ---
Author Organization [place] [address] Care Team Providers Care Embedded Nurse Name Role Phone Unavailable Primary Care Provider Unavailabl e Reason for Visit * Reason Onset Date Comments Surgery 09/08/2016 Encounter Details Date Type Department Care Team (Late st Contact Info) Description 09/08/2016 Telephone SE[facility] Gen Surg [facility] [phone] [facility] [address] [place] [address] Nesha Campa RMA Surgery Social History Tobacco Use Types Packs/Day Years Used Date Smoking Tobacco: Never Smokeless Tobacco: Never Alcohol Use Standard Drinks/Week Comments Yes 1 (1 standard drink = 0.6 oz pur e alcohol) Comments Unknown Sex and Gender Information Value Date Recorded Sex Assigned at Not on file Legal Sex Female 6:46 AM EDT Gender Identity Not on file Sexual Orientation Not on file documented as of this encounter Miscellaneous Notes * Telephone Encounter - Nesha Campa RMA - 09/08/2016 2:38 PM EST Surgery Slip Information Dr: Barbara Procedure: Lap shruthi poss open Arrival Date & Time: 10/14/16 @ 11:30 am Notified: 09/08/16 NPO: yes Pretest: [phone] documented in this encounter Plan of Treatment Not on file documented as of this encounter Visit Diagnoses Not on filedocumented in this encounter
--- OUTSIDE RECORDS SUMMARY | 2024-06-18 10:35 | XMS_ITS | Encounter Summary ---
Author Organization [place] [address] Care Team Providers Care Flash Oven Operator Name Role Phone WichoGil landerosninoska Cantu Primary Care Provider [phone] Reason for Visit * Auth/Cert/Inpt Specialty Diagnoses / Procedures Referred By Contac t Referred To Contact Diagnoses Biliary colic Biliary colic [K80.50] Procedures MT LAP,CHOLECYSTECTOMY LAPAROSCOPIC CHOLECYSTECTOMY POSSIBLE OPEN Referral ID Status Reason Start Date Expiration Date Visits Re quested Visits Authorized [id number] 1 1 Encounter Details Date Type Department Care Team (Late st Contact Info) Description 10/14/2016 1:00 PM EDT - 10/14/2016 2:00 PM EDT Surgery [facility] [address] [facility] [place] [address] Bennett Jimenez MD [address] [place] [address] LAPAROSCOPIC CHOLECYSTECTOMY POSSIBLE OPEN Surgery Details Date/Time Status Location OR Service Patient Class Case Class Case Type Trauma Case? 10/14/2016 1:00 PM Posted [facility] OR 03 General Same Day Surgery N/A Panel 1 Procedure LRB Anes Op Region Wound Class Comments LAPAROSCOPIC CHOLECYSTECTOMY POSSIBLE OPEN N/A General Abdomen Contaminated LAPAROSCOPIC CHOLECYSTECTOMY Surgeon Surgeon Role Service Panel Bennett Jimenez MD Primary General 1 Special Needs DELMIS documented in this encounter Social History Tobacco [...] Sign Reading Time Taken Comments Blood Pressure 112/58 10/14/2016 1:45 PM EDT Pulse 46 10/14/2016 1:45 PM EDT Temperature 37.1 ??C (98.7 ??F) 10/14/2016 1:16 PM ED T Respiratory Rate 12 10/14/2016 1:45 PM EDT Oxygen Saturation 100% 10/14/2016 1:45 PM EDT Inhaled Oxygen Concentration - - Weight 85.8 kg (189 lb 1 oz) 10/14/2016 11:03 AM EDT Height 172.7 cm (5' 8 ) 10/14/2016 11:03 AM EDT Body Mass Index 28.75 10/14/2016 11:03 AM EDT documented in this encounter Discharge Instructions * Discharge Instructions* Bennett Jimenez MD - 10/14/2016 1:25 PM EDT +++++++++++++++++++++++++++++++++++++++++++++++++++++++++++++++++++ [facility] Discharge Instructions - Following Anesthesia We [...] hours unless otherwise directed. ?? If you have questions or concerns regarding your anesthesia experience, please call our office at . Get Well Soon! [facility] +++++++++++++++++++++++++++++++++++++++++++++++++++++++++++++++++++ Call Surgeon if you have: ?? Temperature [...] or hospitalizations. 1. It is OK to shower. No soaking/swimming 2. Activity as tolerated. It is OK to use stairs, and lift items as needed. 3. No driving if experiencing significant pain at the incisions sites, or if taking pain medication. 4. Diet as tolerated. Clear liquids if experiencing any nausea or vomiting. 5. Walk! 6. Please call [phone] for a follow-up appointment in 7 to 14 days. documented in this encounter Medications at Time of Discharge levothyroxine (SYNTHROID) 100 mcg Oral Tablet Take 100 mcg by mouth daily. norgestimate-ethin yl estradiol (ORTHO TRI-CYCLEN;TRI-SPR INTEC) 0.18/0.215/0.25 mg-35 mcg (28) Oral Tablet Take 1 Tab by mouth daily. documented as of this encounter Ordered Prescriptions Prescription Sig Dispense Quantity Refills Last Filled Start Date End Date oxyCODONE-acetamin ophen (PERCOCET) 5-325 mg Oral Tablet Take 1-2 Tabs by mouth every 4 hours as needed for Pain. 30 Tab 10/14/2016 10/20/2016 documented in this encounter Discharge Disposition Disposition Code Departure Means Destination Home or Self Snf documented in this encounter H&P Notes * Floyd Vega NP - 10/14/2016 11:15 AM EDT [facility] History and Physical Name: Marycruz Manzano ADDRESS: [address] [place] [address] [place] [address] : 1980 AGE: 36 y.o. Assessment: Biliary colic [K80.50] Plan: Procedure(s): LAPAROSCOPIC CHOLECYSTECTOMY POSSIBLE OPEN per Bennett Jimenez MD Admitting Physician: Bennett Jimenez MD Date of Admit: 10/14/2016 Subjective SUBJECTIVE Chief Complaint: Biliary colic [K80.50] History of Present Illness: Patient is a 36 y.o. female with Biliary colic [K80.50] who presents for surgical intervention. Past Medical History: Diagnosis Date ??? Headache ??? Heart abnormality palpitations-wore heart monitor approx 4 yrs ago ??? Thyroid disease hypothyroid Past Surgical History: Procedure Laterality Date ??? TONSILLECTOMY [age] yrs old Prior to Admission medications Medication Sig Start Date End Date Taking? Authorizing Provider levothyroxine (SYNTHROID) 100 mcg Oral Tablet Take 100 mcg by mouth daily. Yes Provider, Historical norgestimate-ethinyl estradiol (ORTHO TRI-CYCLEN;TRI-SPRINTEC) 0.18/0.215/0.25 mg-35 mcg (28) Oral Tablet Take 1 Tab by mouth daily. Yes Provider, Historical Allergies Allergen Reactions ??? Lidocaine [...] Topics Concern ??? None Social History Narrative Family History Problem Relation Age of Onset ??? Heart Disease Mother ??? Diabetes Mother ??? High Cholesterol Mother ??? High Cholesterol Father There are no active hospital problems to display for this patient. Blood pressure 117/81, pulse 61, temperature 96.8 ??F (36 ??C), temperature source Forehead, resp. rate 20, height 5' 8 (1.727 m), weight 189 lb 1 oz (85.8 kg), last menstrual period 09/20/2016, SpO2 100 %, not currently . Pain: 0/10. Review of Systems: The listed systems were reviewed and reveal the following in addition to any already discussed in the HPI: Review of Systems Constitutional: Negative. Negative for chills, diaphoresis, fever, malaise/fatigue and weight loss. HENT: Negative. Eyes: Negative for pain, discharge and redness. Respiratory: Negative. Negative for cough, hemoptysis, sputum production and shortness of breath. Cardiovascular: Negative for chest pain, palpitations, claudication and leg swelling. Gastrointestinal: Negative. (+) , gallbladder problem. Genitourinary: Negative. Musculoskeletal: Negative. Skin: Negative. Neurological: Negative. Negative for weakness. Endo/Heme/Allergies: Negative. Psychiatric/Behavioral: Negative for depression, substance abuse and suicidal ideas. Objective OBJECTIVE Physical Exam: Body mass index is 28.75 kg/(m^2). Body surface area is 2 meters squared. Physical Exam Constitutional: She is [...] is no tenderness. There is no guarding. Musculoskeletal: Normal range of motion. She exhibits [...] thought contentnormal. Nursing note and vitals reviewed. Labs: Radiology: EKG: Floyd Vega NP 10/14/2016 Cosigned by Randolph Goodson MD at 10/27/2016 7:41 AM EDT documented in this encounter Procedure Notes * Bennett Jimenez MD - 10/14/2016 12:56 PM EDT OPERATIVE DICTATION Bennett Jimenez MD Date: 10/14/2016 Body mass index is 28.75 kg/(m^2). Document Text [facility] DICTATOR: Natalia Jimenez OPERATIVE REPORT DATE OF OPERATION: 10/14/2016 PREOPERATIVE DIAGNOSIS: Biliary colic POSTOPERATIVE DIAGNOSIS: Same OPERATION PERFORMED: Laparoscopic Cholecystectomy SURGEON: Natalia Jimenez M.D. ANESTHESIA: General. DESCRIPTION OF OPERATIVE PROCEDURE: The patient was taken to the operating room and placed in the supine position on the operating room table. After adequate induction of general endotracheal anesthesia, the patient's abdomen was prepped and draped in the standard surgical fashion. Care was taken to place bilateral pneumatic compression boots on the lower extremities, and antibiotics were administered prior to induction. A small transverse incision was made in the right upper quadrant, and the abdominal cavity was entered and insufflated with CO2 gas using the Optiview technique and a non-angled camera. Two additional 5mm trocars were then placed into the abdominal cavity under direct visualization. The first was in the right upper quadrant laterally, and the second was at the level of the umbilicus just to the left of midline. A fourth 12mm trocar was placed at the subxiphoid process aimed at the gallbladder fossa. The gallbladder was aspirated, then elevated up over the edge of the liver in a cephalad direction. Additional traction was placed at the infundibulum in an inferolateral direction. The peritoneum of the gallbladder was incised with the Bovie electrocautery utilizing the Galdamez Technique. The cystic duct was then easily visualized using the Critical View Technique, using the 30 degree angled camera. Care was taken to identify this as the only ductal structure exiting the gallbladder. Three clips were placed distally after visualizing the tips of the clips to traverse the cystic duct. One clip was placed proximally on the cystic duct, and the cystic duct was divided. The cystic artery was identified within Calot's triangle. Two clips were placed proximally, one clip was placed distally, and the cystic artery was then divided. The gallbladder was dissected off of the gallbladder fossa using the Bovie electrocautery. It was then placed into an Endopouch bag and removed from the abdominal cavity and passed off the table as a specimen. Hemostasis was obtained at the gallbladder fossa with electrocautery. The abdominal cavity was irrigated and suctioned free. The trocars were removed under direct visualization. The fascia was closed with 0 Vicryl sutures, and the skin edges were reapproximated using a 4.0 Monocryl running subcuticular stitch. At the end of the case all needle, sponge, and instrument counts were correct. The patient tolerated the procedure well and was transported to recovery room awake, alert, and in stable condition. Carlos Jimenez MD * Bennett Jimenez MD - 10/14/2016 12:56 PM EDT [facility] OPERATIVE/PROCEDURE NOTE Marycruz Manzano October 14, 2016 Body mass index is 28.75 kg/(m^2). Active Hospital Problems Diagnosis ??? *Biliary colic PRE-OP DIAGNOSIS: Biliary colic [K80.50] POST-OP DIAGNOSIS: Biliary colic [K80.50] PROCEDURE(S): Procedure(s): LAPAROSCOPIC CHOLECYSTECTOMY SURGEON(S): Surgeon(s) and Role: * Bennett Jimenez MD - Primary OR STAFF: Shoe Stamper: Jocy Musa RN Scrub Villalobos: Tammi Redd, YARY Scrub Assist: Carlota Ruiz CST 2nd Shoe Stamper: Gian Leahy RN; Godwin Chris ST ANESTHESIA: General SPECIMENS: ID Type Source Tests Collected by Time Destination 1 : gallbladder Bennett Jimenez MD 10/14/2016 1237 Pathology ESTIMATED BLOOD LOSS: 5 mL FINDINGS: DISPOSITION/POST PROC COURSE: Stable to Post Anesthesia Care Unit Bennett Jimenez MD Date: 10/14/2016 documented in this encounter Nursing Notes * Bernie Kaufman, LAURA - 10/14/2016 3:35 PM EDT Sitting up in chair c/o lightheadedness. Comfort measures given, starting to feel better documented in this encounter Plan of Treatment Not on file documented as of this encounter Procedures Procedure Name Priority Date/Time Associated Diagnosis Comments SCANNED RHYTHM STRIPS 10/18/2016 8:15 PM EDT PATHOLOGY TISSUE REPORT Routine 10/14/2016 12:41 PM EDT LAPAROSCOPIC CHOLECYSTECTOMY POSSIBLE OPEN 10/14/2016 12:17 PM EDT Biliary colic Special Needs DELMIS POCT URINE Routine 10/14/2016 11:23 AM EDT Preop testing Biliary colic documented in this encounter Results * SCANNED RHYTHM STRIPS (10/18/2016 8:15 PM EDT) Anatomical Region Laterality Modality Other 10/18/2016 8:15 PM EDT us Unknown Unknown IMG ECG ORDERABLES Final Result * PATHOLOGY TISSUE REPORT (10/14/2016 12:41 PM EDT) Surgical Pathology Report ? PATIENT NAME:MARYCRUZ MANZANO ?Surgical Pathology Report ? Accession Number ?Collected Date/Time ? Received Date/Time ? [id number] ? 10/14/16 12:41 EDT ?10/14/16 21:56 EDT ? Diagnosis ? Gallbladder, excision: ? - Chronic cholecystitis and cholelithiasis. ? SOCORRO JARRETT ? (Electronically signed by) ? Verified: 10/18/2016 ? [facility] ? Clinical Information ? Biliary colic [K80.50] ? Biliary colic [K80.50] ? Routine ? Gross Description ? Received in formalin labeled with patients name and gallbladder is a 7.3 ? x 2.5 x 1.8 cm previously incised gallbladder with carrizales-green smooth ? serosa. The wall averages 0.2 cm in thickness and the lumen contains green ? bile and a 2.1 x 1 x 0.9 cm aggregate of carrizales-green choleliths. The mucosa ? is green, granular. No periductal lymph node is identified. ? Blueprint Blocker sections to include inked margin are submitted in one ? cassette. /TE ? DRB/MMD ? Microscopic Description ? Microscopic examination is performed and the findings corroborate the ? diagnosis. [facility] 10/14/2016 12:4 1 PM EDT Bennett Jimenez MD PATHOLOGY ORDERABLES Final Resul t [facility] [address] [place] [address] * POCT URINE (10/14/2016 11:23 AM EDT) Preg Test, Ur neg POS/NEG [facility] Lot Number [id number] [facility] Expiration Date [facility] SeriAl # [facility] Control Line Yes YES/NO [facility] 10/14/2016 11:2 3 AM EDT Isha White CLAM SORTER POINT OF CARE TEST ORDERABLE S Final Result [facility] [address] [place] [address] documented in this encounter Visit Diagnoses Diagnosis Biliary colic- Primary Calculus of gallbladder without mention of cholecystitis or obstruction Preop testing Preoperative examination, unspecified Biliary colic Calculus of gallbladder without mention of cholecystitis or obstruction Biliary colic Calculus of gallbladder without mention of cholecystitis or obstruction documented in this encounter Administered Medications Inactive Administered Medications - up to 1 most recent administrations Medication Order MAR Action Action Date Dose Rate Site dimenhyDRINATE (DRAMAMINE) injection 12.5-25 mg 12.5-25 mg, Intravenous, PRN, 2 doses, Starting on Mon10/14/16 at 1300, Until Mon10/14/16 at 1505, Nausea, For nausea unrelieved by Zofran. Begin with lowest dose unless otherwise directed. Give remainder of dose if nausea unrelieved in 20 minutes., PACU Given 10/14/2016 3:05 PM EDT 6.25 mg famotidine (PEPCID) 20 mg/2 mL injection 20 mg 20 mg, Intravenous, ONCE PREPROCEDURE, 1 dose, On Mon10/14/16 at 1100, Slow IV push (greater than 2 minutes). To be given in SDS/Pre-op Holding Area Use 10 mL normal saline to dilute and administer famotidine IV, Pre-op (Holding/SDS Meds) Given 10/14/2016 11:24 AM EDT 20 mg fentaNYL (SUBLIMAZE) 50 mcg/mL injection 25 mcg 25 mcg, Intravenous, EVERY 5 MIN PRN, 4 doses, Starting on Mon10/14/16 at 1300, Until 10/15/16 at 0602, Pain, For initial pain. Maximum dose not to exceed 100 mcg., PACU HYDROmorphone (DILAUDID) injection 0.25 mg 0.25 mg, Intravenous, EVERY 10 MIN PRN, Starting on Mon10/14/16 at 1300, Until 10/15/16 at 0602, Pain, Do not exceed 2 mg in one hour unless otherwise ordered by the Anesthesia Coordinator For pain unrelieved by fentanyl, PACU ketorolac (TORADOL) injection 30 mg 30 mg, Intravenous, ONCE PRN, 1 dose, Starting on Mon10/14/16 at 1300, Until Mon10/14/16 at 1351, Pain, Give slow IV push if patient did not receive in OR, PACU Given 10/14/2016 1:51 PM EDT 30 mg lactated ringers infusion Intravenous, at 100 mL/hr, PREPROCEDURE CONTINUOUS, Starting on Mon10/14/16 at 1047, Until 10/15/16 at 0602, To be given in SDS/Pre-op Holding Area, Pre-op (Holding/SDS Meds) New Bag 10/14/2016 12:55 PM EDT ondansetron (ZOFRAN) 4 mg/2 mL injection 4 mg 4 mg, Intravenous, PRN, 1 dose, Starting on Mon10/14/16 at 1300, Until Mon10/14/16 at 1403, Nausea, PACU Given 10/14/2016 2:03 PM EDT 4 mg oxyCODONE (ROXICODONE) immediate release tablet 5 mg 5 mg, Oral, PRN, 2 doses, Starting on Mon10/14/16 at 1300, Until 10/15/16 at 0602, Pain, If patient has received IV acetaminophen (OFIRMEV): Give 5 mg if patient able to take oral medication. Reassess pain in 20 minutes and give additional 5 mg if pain not improved., PACU documented in this encounter Active and Recently Administered Medications Times are shown in EDT. Scheduled Medication Order 10/12/2016 10/13/2016 10/14/2016 famotidine (PEPCID) 20 mg/2 mL injection 20 mg (COMPLETED) 20 mg, Intravenous, ONCE PREPROCEDURE, 1 dose, On Mon10/14/16 at 1100, Slow IV push (greater than 2 minutes). To be given in SDS/Pre-op Holding Area Use 10 mL normal saline to dilute and administer famotidine IV, Pre-op (Holding/SDS Meds) 1124 (Given - Provid er: Nadia Rankin RN) levOFLOXacin (LEVAQUIN) IVPB 500 mg (COMPLETED) 500 mg, Intravenous, ONCE PREPROCEDURE, 1 dose, On Mon10/14/16 at 1100, Administer over 60 Minutes, Administer 60 minutes pre-op, Pre-op (Antibiotic) 1224 (Given - Provid er: Carie Boone CRNA) PRN Medication Order 10/12/2016 10/13/2016 10/14/2016 dimenhyDRINATE (DRAMAMINE) injection 12.5-25 mg (COMPLETED) 12.5-25 mg, Intravenous, PRN, 2 doses, Starting on Mon10/14/16 at 1300, Until Mon10/14/16 at 1505, Nausea, For nausea unrelieved by Zofran. Begin with lowest dose unless otherwise directed. Give remainder of dose if nausea unrelieved in 20 minutes., PACU 1421 (Given - Provid er: Stacey Ramirez RN)1505 (Given - Provider: Bernie Kaufman, LAURA) fentaNYL (SUBLIMAZE) 50 mcg/mL injection 25 mcg 25 mcg, Intravenous, EVERY 5 MIN PRN, 4 doses, Starting on Mon10/14/16 at 1300, Until 10/15/16 at 0602, Pain, For initial pain. Maximum dose not to exceed 100 mcg., PACU HYDROmorphone (DILAUDID) injection 0.25 mg 0.25 mg, Intravenous, EVERY 10 MIN PRN, Starting on Mon10/14/16 at 1300, Until 10/15/16 at 0602, Pain, Do not exceed 2 mg in one hour unless otherwise ordered by the Anesthesia Coordinator For pain unrelieved by fentanyl, PACU ketorolac (TORADOL) injection 30 mg (COMPLETED) 30 mg, Intravenous, ONCE PRN, 1 dose, Starting on Mon10/14/16 at 1300, Until Mon10/14/16 at 1351, Pain, Give slow IV push if patient did not receive in OR, PACU 1351 (Given - Provid er: Stacey Ramirez RN) lactated ringers infusion Intravenous, at 100 mL/hr, PREPROCEDURE CONTINUOUS, Starting on Mon10/14/16 at 1047, Until 10/15/16 at 0602, To be given in SDS/Pre-op Holding Area, Pre-op (Holding/SDS Meds) 1123 (New Bag - Prov ider: Nadia Rankin RN)1255 (New Bag - Provider: Carie Boone CRNA)1530 (Stopped - Provider: Bernie Kaufman, LAURA) ondansetron (ZOFRAN) 4 mg/2 mL injection 4 mg (COMPLETED)(Linked Group 1) 4 mg, Intravenous, PRN, 1 dose, Starting on Mon10/14/16 at 1300, Until Mon10/14/16 at 1403, Nausea, PACU 1403 (Given - Provid er: Stacey Ramirez RN) oxyCODONE (ROXICODONE) immediate release tablet 5 mg 5 mg, Oral, PRN, 2 doses, Starting on Mon10/14/16 at 1300, Until 10/15/16 at 0602, Pain, If patient has received IV acetaminophen (OFIRMEV): Give 5 mg if patient able to take oral medication. Reassess pain in 20 minutes and give additional 5 mg if pain not improved., PACU Linked Groups Order Group 1: ondansetron (ZOFRAN) 4 mg/2 mL injection 4 mg (COMPLETED)Jump to med 4 mg, Intravenous, PRN, 1 dose, Starting on Mon10/14/16 at 1300, Until Mon10/14/16 at 1403, Nausea, PACU Or ondansetron (ZOFRAN-ODT) disintegrating tablet 8 mg (COMPLETED) 8 mg, Oral, PRN, 1 dose, Starting on Mon10/14/16 at 1300, Until Mon10/14/16 at 1403, Nausea, Dissolve in mouth, PACU documented in this encounter Orders Medications Ordered That Parminder ht Not Have Been Administered Count Last Ordered Date First Ordered Date fentaNYL (SUBLIMAZE) 50 mcg/ mL injection 25 mcg 1 10/14/2016 HYDROmorphone (DILAUDID) injection 0.25 mg 1 10/14/2016 levOFLOXacin (LEVAQUIN) IVPB 500 mg 1 10/14 meperidine (DEMEROL) 25 mg/m L injection (PF) 12.5 mg 1 10/14/2016 ondansetron (ZOFRAN-ODT) dis integrating tablet 8 mg 1 10/14/2016 oxyCODONE (ROXICODONE) immed iate release tablet 5 mg 1 10/14/2016 Lab Orders Without Results Count Last Ordered D ate First Ordered Date PATHOLOGY TISSUE REQUEST 1 10/14/2016 documented in this encounter Care Teams Flash Oven Operator Relationship Specialty Start Date End Date Aldair Sands [address] [place] [address] PCP - General Family Medicine 09/19/16 documented as of this encounter
--- OUTSIDE RECORDS SUMMARY | 2024-06-18 10:35 | XMS_ITS | Encounter Summary ---
Author Organization [place] [address] Care Team Providers Care Percher Name Role Phone WichoAldair Primary Care Provider Reason for Visit * Auth/Cert/Inpt Specialty Diagnoses / Procedures Referred By Contac t Referred To Contact Diagnoses Biliary colic Biliary colic [K80.50] Procedures DC LAP,CHOLECYSTECTOMY LAPAROSCOPIC CHOLECYSTECTOMY POSSIBLE OPEN Referral ID Status Reason Start Date Expiration Date Visits Re quested Visits Authorized [id number] 1 1 Encounter Details Date Type Department Care Team (Latest Contact Info) Description 10/14/2016 10:45 AM EDT - 10/14/2016 4:05 PM EDT Hospital Encounter [facility] SAME DAY SURGERY [address] [facility], [place] [address] Bennett Jimenez MD [address] [place] [address] Preop testing; Biliary colic Discharge Disposition: Home or Self Care Social [...] Sign Reading Time Taken Comments Blood Pressure 105/52 10/14/2016 3:34 PM EDT Pulse 56 10/14/2016 3:34 PM EDT Temperature 35.9 ??C (96.6 ??F) 10/14/2016 2:49 PM ED T Respiratory Rate 18 10/14/2016 3:34 PM EDT Oxygen Saturation 98% 10/14/2016 2:49 PM EDT Inhaled Oxygen Concentration - - Weight 85.8 kg (189 lb 1 oz) 10/14/2016 11:03 AM EDT Height 172.7 cm (5' 8 ) 10/14/2016 11:03 AM EDT Body Mass Index 28.75 10/14/2016 11:03 AM EDT documented in this encounter Discharge Instructions * Discharge Instructions* Bennett Jimenez MD - 10/14/2016 1:25 PM EDT +++++++++++++++++++++++++++++++++++++++++++++++++++++++++++++++++++ [facility] Discharge Instructions - Following Anesthesia We appreciate [...] or vomiting. 5. Walk! 6. Please call [phone] for a follow-up appointment in 7 to [...] Code Departure Means Destination Home or Self Usp documented in this encounter H&P Notes * Floyd Vega NP - 10/14/2016 11:15 AM EDT [facility] History and Physical Name: Marycruz Manzano ADDRESS: [address] [place] [address] [place] [address] : 1980 AGE: 36 y.o. Assessment: Biliary [...] mass index is 28.75 kg/(m^2). Document Text [facility]/Busy DICTATOR: Natalia Jimenez OPERATIVE REPORT DATE OF [...] Jimenez MD - 10/14/2016 12:56 PM EDT [facility] OPERATIVE/PROCEDURE NOTE Marycruz Manzano October 14, 2016 Body mass index is 28.75 kg/(m^2). Active Hospital Problems Diagnosis ??? *Biliary colic PRE-OP DIAGNOSIS: Biliary colic [K80.50] POST-OP DIAGNOSIS: Biliary colic [K80.50] PROCEDURE(S): Procedure(s): LAPAROSCOPIC CHOLECYSTECTOMY SURGEON(S): Surgeon(s) and Role: * Bennett Jimenez MD - Primary OR STAFF: Policy Loan Calculator: Jocy Musa RN Scrub Villalobos: Tammi Redd, RIPSHEAR OPERATOR Scrub Assist: Carlota Ruiz CST 2nd Policy Loan Calculator: Gian Leahy RN; Godwin Chris, ANESTHESIA: General SPECIMENS: ID Type Source Tests Collected by Time Destination 1 : gallbladder Bennett Jimenez MD 10/14/2016 1237 Pathology ESTIMATED BLOOD LOSS: 5 mL FINDINGS: DISPOSITION/POST PROC COURSE: Stable to Post Anesthesia Care Unit Bennett Jimenez MD Date: 10/14/2016 documented in this encounter Nursing Notes * Bernie Kaufman, RN - 10/14/2016 3:35 PM EDT Sitting up [...] Number ?Collected Date/Time ? Received Date/Time ? [id number] ? 10/14/16 12:41 EDT ?10/14/16 21:56 EDT [...] No periductal lymph node is identified. ? Glass Products Inspector sections to include inked margin are submitted in one ? cassette. /TE ? DRB/MMD ? Microscopic Description ? Microscopic examination is performed and the findings corroborate the ? diagnosis. [facility] 10/14/2016 12:4 1 PM EDT us Bennett Jimenez MD PATHOLOGY ORDERABLES Final Resul t Performing Organization Address [facility]/ZIP Co de Phone Number [facility] [address] [place] [address] * POCT URINE (10/14/2016 11:23 AM EDT) Preg Test, Ur neg POS/NEG [facility] Lot Number [id number] [facility] Expiration Date [facility] SeriAl # [facility] Control Line Yes YES/NO [facility] 10/14/2016 11:2 3 AM EDT us Isha White DIRECTOR MARKET INTELLIGENCE POINT OF CARE TEST ORDERABLE S Final Result Performing Organization Address [facility] Co de Phone Number [facility] [address] [place] [address] documented in this encounter Visit Diagnoses Diagnosis [...] 10/14/2016 documented in this encounter Care Teams Percher Relationship Specialty Start Date End Date Aldair Sands [address] [place] [id number] PCP - General Family Medicine 09/19/16 documented as of this encounter
--- OUTSIDE RECORDS SUMMARY | 2024-06-18 10:35 | XMS_ITS | Encounter Summary ---
Author Organization [place] [address] Care Team Providers Care Office Clin Asst Name Role Phone Unavailable Primary Care Provider Unavailabl e Reason for Visit * Reason Comments Other cholelithiasis with mildlyl thickened gallbladder wall per ultrasound * Consultation (Routine) - Closed Specialty Diagnoses / Procedures Referred By Mike maritnez Referred To Contact Surgery / General Surgery Diagnoses gallstones Procedures NEW PATIENT Bennett Jimenez MD [address] [place] [address] Phone: tel: fax: Referral ID Status Reason Start Date Expiration Date Visits Re quested Visits Authorized [id number] Closed 09/08/2016 09/08/2017 99 99 Encounter Details Date Type Department Care Team (Late st Contact Info) Description 09/08/2016 9:40 AM EST Office Visit SEP Gen Surg [address] [address] [place] [address] [place] [address] [place] [address] Biliary colic Social History Tobacco Use Types Packs/Day Years [...] Sign Reading Time Taken Comments Blood Pressure 116/72 09/08/2016 9:45 AM EST Pulse 64 09/08/2016 9:45 AM EST Temperature 36.9 ??C (98.5 ??F) 09/08/2016 9:45 AM ES T Respiratory Rate 12 09/08/2016 9:45 AM EST Oxygen Saturation - - Inhaled Oxygen Concentration - - Weight 87.1 kg (192 lb) 09/08/2016 9:45 AM EST Height 172.7 cm (5' 8 ) 09/08/2016 9:45 AM EST Body Mass Index 29.19 09/08/2016 9:45 AM EST documented in this encounter Progress Notes * Bennett Jimenez MD - 09/08/2016 9:40 AM EST Subjective Subjective: Patient ID: Marycruz Echeverria is a 36 y.o. female. Chief Complaint Patient presents with ??? Other cholelithiasis with mildlyl thickened gallbladder wall per ultrasound HPI Patients past medical, family and social histories were reviewed and updated. There were no changesexcept as noted. 36 female with abdominal pain. Present for several months. Increasing in frequency and severity. Associated with nausea. Pain mainly in RUQ, with radiation to epigastric area and back/shoulder. Onsetworse after meals-- significant postprandial pain, with food selection . Reviewed results of US wit h patient in detail. Allergies Allergen Reactions ??? Lidocaine Palpitations ??? Amoxicillin Rash Current Outpatient Prescriptions: ??? levothyroxine (SYNTHROID) 100 mcg Oral Tablet, Take 100 mcg by mouth daily., Disp: , Rfl: ??? norgestimate-ethinyl estradiol (ORTHO TRI-CYCLEN;TRI-SPRINTEC) 0.18/0.215/0.25 mg-35 mcg (28) Oral Tablet, Take 1 Tab by mouth daily., Disp: , Rfl: There is no problem list on file for this patient. Social History Social History ??? Marital status: Spouse name: N/A ??? Number of children: N/A ??? Years of education: N/A Occupational History ??? Not on file. Social History Main Topics ??? Smoking status: Never Smoker ??? Smokeless tobacco: Never Used ??? Alcohol use 0.6 oz/week 1 Glasses of wine per week ??? Drug use: Not on file ??? Sexual activity: Not on file Other Topics Concern ??? Not on file Social History Narrative ??? No narrative on file Review of Systems Constitutional: Positive for appetite change. HENT: Negative. Eyes: Negative. Respiratory: Negative. Cardiovascular: Negative. Gastrointestinal: Positive for abdominal distention, abdominal pain, nausea and vomiting. Musculoskeletal: Negative. Skin: Negative. Neurological: Negative. Objective Objective: Vitals: 09/08/16 0945 BP: 116/72 BP Location: Right arm Patient Position: Sitting Pulse: 64 Resp: 12 Temp: 98.5 ??F (36.9 ??C) TempSrc: Oral Weight: 192 lb (87.1 kg) Height: 5' 8 (1.727 m) Body mass index is 29.19 kg/(m^2). Physical Exam Constitutional: She is oriented to person, place, and time. She appears well- developed and well-nourished. HENT: Head: Normocephalic and atraumatic. Eyes: Conjunctivae and EOM are normal. Pupils are equal, round, and reactive to light. Neck: Normal range of motion. Neck supple. Cardiovascular: Normal rate and regular rhythm. Pulmonary/Chest: Effort normal and breath sounds normal. Abdominal: Soft. Bowel sounds are normal. There is tenderness in the right upper quadrant and epigastric area. There is no rigidity and no guarding. Musculoskeletal: Normal range of motion. Neurological: She is alert and oriented to person, place, and time. She has normal reflexes. Skin: Skin is warm and dry. Assessment and Plan: Impression: 1. Biliary colic 2. Cholelithiasis 1. Proceed to the operating room for Laparoscopic cholecystectomy 2. Discussed procedure, all questions answered. 3. Risks discussed: bleeding, infection, abscess, bile duct injury, retained gallstones, requirement for more procedures or surgery. The patient understands and agrees to proceed. No Follow-up on file. documented in this encounter Plan of Treatment Not on file documented as of this encounter Visit Diagnoses Diagnosis Biliary colic Calculus of gallbladder without mention of cholecystitis or obstruction documented in this encounter Historical Medications * This list may reflect changes made after this encounter. norgestimate-ethin yl estradiol (ORTHO TRI-CYCLEN;TRI-SPR INTEC) 0.18/0.215/0.25 mg-35 mcg (28) Oral Tablet Take 1 Tab by mouth daily. levothyroxine (SYNTHROID) 100 mcg Oral Tablet Take 100 mcg by mouth daily. added in this encounter
--- OUTSIDE RECORDS SUMMARY | 2024-06-18 10:35 | XMS_ITS | Encounter Summary ---
Author Organization [place] [address] Care Team Providers Care Adaptive Physical Educator Name Role Phone Aldair Sadns Primary Care Provider Encounter Details Date Type Department Care Team (Latest Contact Info) Description 10/04/2016 3:53 PM EDT - 10/04/2016 11:59 PM EDT Hospital En[facility] [facility] [place] [id number] [place], [facility] Preop testing (Primary Dx); Biliary colic Discharge Disposition: Home or Self Care Anesthesia Record Procedure Summary Procedure Name Responsible [...] acknowledgement of understanding from the receiving PACU/ICU steamboat pilot 1320 An Stop Meds * Agents No agents on file. * Blood No blood administrations on file. Lines, Drains, and Airways Type Details Placement Removal Pedi/Infant Peripheral IV 10/14/16; 1122; 20; Right; Antecubital 10/14/16 1122 by Nadia Rankin RN 10/14/16 1530 by Bernie Kaufman RN Airway Device: ETT- Cuffed; Size: 7 mm; Placement Date: 10/14/16; Placement Time: 1223; Removal Date: 10/14/16; Removal Time: 1310 10/14/16 1223 by Carie Boone CRNA 10/14/16 1310 by Carie Boone CRNA Incision/Procedural Site 10/14/16; 1230; Abdomen; 10/15/16; 0601 10/14/16 1230 by Jocy Musa RN 10/15/16 0601 by Discharge Provider, Olga documented in this encounter Social History Tobacco [...] Sign Reading Time Taken Comments Blood Pressure 131/81 10/04/2016 4:00 PM EDT Pulse 61 10/04/2016 4:00 PM EDT Temperature 36.7 ??C (98.1 ??F) 10/04/2016 4:00 PM ED T Respiratory Rate 16 10/04/2016 4:00 PM EDT Oxygen Saturation 100% 10/04/2016 4:00 PM EDT Inhaled Oxygen Concentration - - Weight 86.2 kg (190 lb) 10/04/2016 3:59 PM EDT Height 172.7 cm (5' 8 ) 10/04/2016 3:59 PM EDT Body Mass Index 28.89 10/04/2016 3:59 PM EDT documented in this encounter Discharge Instructions * Discharge Instructions* Carley Brownlee, LAURA - 10/04/2016 4:00 PM EDT PREOPERATIVE INFORMATION AND INSTRUCTIONS TO PREPARE FOR SURGERY/PROCEDURE Date of Surgery 10/14/16 1. For your SAFETY do not eat any food or drink anything after midnight. This includes chewing gum,mints, candy, chewing tobacco and dip. You may have water only 4 hrs prior to surgery start time unless instructed by surgeon. 2. You may brush your teeth and gargle the morning of surgery. Do not swallow water. 3. Take the following pills with a small sip of water on the morning of surgery: levothyroxine 4. Aspirin, Coumadin, Ibuprofen, Plavix, Fish Oil, Vitamin E, any Supplements and Anti-Inflammatoryproducts may be stopped as directed by your physician. 5. It is also for your SAFETY that you do not smoke or use any type of tobacco products within 24 hours prior to surgery. Smoking will also slow your rate of healing, so it is advised that you do notsmoke during the healing process. No beer, wine or alcohol 24 hours prior to surgery. 6. It is important that on the day of surgery that you have a PRESS WASHER which is someone, 18 years or older, who can accompany you and remain in the facility for the duration of your surgery. Theyshould be available for the PERIOPERATIVE TEAM which includes your surgeon to COMMUNICATE with before, during, and after your surgery. Someone should also remain with you for 24 hours post surgery and you may not drive to make sure you are SAFE during that time. 7. A parent must accompany a child scheduled for surgery and plan to stay at the hospital until thechild is discharged. If your takes a special type of nipple or baby bottle, please bring that with you. If your child has a favorite security item such as a blanket or a special toy, please feel free to bring that with you. 8. Please do not bring children with you to the hospital. 9. Please wear simple, loose fitting clothing to the hospital. Do not bring valuables (money, credit cards, check books, etc.) or wear any jewelry on day of surgery. Remove all body piercings prior to arrival. All jewelry must be removed to avoid injury. We will not tape wedding rings/bands. 10. If you have dentures, they may be removed before going to the OR, we will provide a container for them. If you wear contact lenses or glasses, they will be removed; please bring a case for them. 11. Do not remove hearing aids, you will wear them to surgery. 12. Please shower morning of surgery or night before. Do not wear any makeup (including no eye makeup) lotion, powder, or deodorant. Nail cape verdean must be removed if cape verdean is on operative extremity. Please do not shave operative extremity or near the operative extremity. 13. If you have a Living Will and Durable Power of Bilingual Instructor for Healthcare, please bring a copy. 14. For your SAFETY notify your Surgeon if you develop any illness between now and surgery time, cough, cold, fever, sore throat, nausea, vomiting, rash, etc. 15. If you receive a blood bracelet remember to bring it with you on the day of surgery. 16. Bring your photo ID and insurance card. If your insurance coverage requires a co-payment or deductible, please bring the payment with you. We accept Visa, MasterCard, [employer] and [employer] credit cards. Our Customer Service Representatives will be available by telephone for any questions regarding financial issues at [phone]. 17. Other 18. If you wear CPAP or BIPAP, please bring your mask and the machine settings (not the actual machine) with you to the hospital on the day of your procedure. The hospital will supply a machine to use during your hospital stay. 19. If you wear oxygen, please bring it with you to use during your travel to and from the hospital. Following your admission, the hospital will supply oxygen for your use. I acknowledge receipt of the instructions indicated above. If you have any questions or concerns please feel free to call the contact number. We want to make sure you feel SAFE and have an EXCELLENT experience while you are here. Same Day Surgery Unit [facility] at [phone]; Ferdinand: Entrance 1A, go to [address] [place] [address] on the [facility] nurse's station documented in this encounter Medications at Time of Discharge levothyroxine (SYNTHROID) 100 mcg Oral Tablet Take 100 mcg by mouth daily. norgestimate-ethin yl estradiol (ORTHO TRI-CYCLEN;TRI-SPR INTEC) 0.18/0.215/0.25 mg-35 mcg (28) Oral Tablet Take 1 Tab by mouth daily. documented as of this encounter Discharge Disposition Disposition Code Departure Means Destination Home or Self Care documented in this encounter Nursing Notes * Carley Brownlee RN - 10/04/2016 4:43 PM EDT CMP LAB FROM TODAY ROUTED TO DR. LITTLE documented in this encounter Plan of Treatment Not on file documented as of this encounter Procedures Procedure Name Priority Date/Time Associated Diagnosis Comments DIFFERENTIAL Routine 10/04/2016 4:11 PM EDT CBC WITH DIFF Routine 10/04/2016 4:11 PM EDT Preop testing Biliary colic COMPREHENSIVE METABOLIC PANEL Routine 10/04/2016 4:11 PM EDT Preop testing Biliary colic documented in this encounter Results * DIFFERENTIAL (10/04/2016 4:11 PM EDT) Neut Percent 50.9 % [facility] Lymph Percent 38.6 % [facility] Edgar Percent 9.4 % [facility] Eos Percent 0.1 % [facility] Baso Percent 1.0 % [facility] Neut# 3.8 1.8 - 7.7 x10(3)/mcL [facility] Lymph# 2.9 0.6 - 4.8 x10(3)/mcL [facility] Edgar# 0.7 0.0 - 1.3 x10(3)/mcL [facility] Eos# 0.0 0.0 - 0.5 x10(3)/mcL [facility] Baso# 0.1 0.0 - 0.2 x10(3)/mcL [facility] Blood specimen (specimen) 10/04/2016 4:11 PM EDT 10/04/2016 4:19 PM EDT us Isha White WEAPONS SYSTEM INSTRUMENT MECHANIC HEMATOLOGY ORDERABLES Final Result [facility] [address] [facility] [place] [address] * (ABNORMAL) COMPREHENSIVE METABOLIC PANEL (10/04/2016 4:11 PM EDT) Pathologist [facility] Sodium 138 136 - 145 mmol/L [facility] Potassium 4.1 3.5 - 5.0 mmol/L [facility] Chloride 100 98 - 107 mmol/L [facility] Total CO2 24 22 - 29 mmol/L [facility] Anion Gap 14 7 - 16 mmol/L [facility] Calcium 10.1 8.6 - 10.2 mg/dL [facility] Glucose Lvl 91 74 - 100 mg/dL [facility] BUN 10 6 - 20 mg/dL [facility] Creatinine 0.90 0.51 - 1.30 mg/dL [facility] Albumin 4.5 3.5 - 5.2 gm/dL [facility] Total Protein 7.4 6.4 - 8.3 gm/dL [facility] Bili Total 0.6 0.1 - 1.3 mg/dL [facility] AST 65(H) <=40 IU/L [facility] ALT 84(H) <=41 IU/L [facility] Alk Phos 51 35 - 104 IU/L [facility] GFR Afr Am >60 [facility] GFR Non Afr Am >60 [facility] Blood specimen (specimen) UPPER LIMB STRUCTURE / Unknown 10/04/2016 4:11 PM EDT 10/04/2016 4:19 PM EDT Isha White WEAPONS SYSTEM INSTRUMENT MECHANIC CHEMISTRY ORDERABLES Edited Result - Final [facility] [address] [place] [address] * CBC WITH AUTO DIFF (10/04/2016 4:11 PM EDT) Pathologist [facility] WBC 7.4 4.0 - 11.0 x10(3)/mcL [facility] RBC 4.46 3.80 - 5.10 x10(6)/mcL [facility] Hgb 13.5 12.0 - 15.6 gm/dL [facility] Hct 40.2 35.7 - 45.9 % [facility] MCV 90.1 82.5 - 99.8 fL [facility] MCH 30.4 27.0 - 34.3 pg [facility] MCHC 33.7 32.1 - 35.3 gm/dL [facility] RDW 13.5 11.5 - 15.0 % [facility] Platelet 316 144 - 423 x10(3)/mcL [facility] MPV 7.8 6.8 - 10.8 fL [facility] Blood specimen (specimen) UPPER LIMB STRUCTURE / Unknown 10/04/2016 4:11 PM EDT 10/04/2016 4:19 PM EDT us Isha White WEAPONS SYSTEM INSTRUMENT MECHANIC HEMATOLOGY ORDERABLES Final Result [facility] [address] [place] [address] documented in this encounter Visit Diagnoses Diagnosis Preop testing- Primary Preoperative examination, unspecified Biliary colic Calculus of gallbladder without mention of cholecystitis or obstruction documented in this encounter Care Teams Adaptive Physical Educator Relationship Specialty Start Date End Date Aldair Sands [address] [place] [address] PCP - General Family Medicine 09/19/16 documented as of this encounter
--- OUTSIDE RECORDS SUMMARY | 2024-06-18 10:35 | XMS_ITS | Encounter Summary ---
Author Organization [place] [address] Care Team Providers Care Broaching Machine Repairer Name Role Phone Unavailable Primary Care Provider Unavailabl e Reason for Visit * Vascular Imaging (Routine) - Closed Specialty Diagnoses / Procedures Referred By Contetelvina t Referred To Contact Radiology Diagnoses Screening for cardiovascular condition Procedures [facility] VASCULAR CVMHU SCREENING SINGLE EXAM Garfield Nava APRN Referral ID Status Reason Start Date Expiration Date Visits Re quested Visits Authorized [id number] Closed 06/15/2015 06/14/2016 1 1 Encounter Details Date Type Department Care Team (Latest Contact Info) Description 06/16/2015 11:18 AM EST - 06/16/2015 11:59 PM EST Hospital Encounter EDG CVMHU ECHO VAS [place] [id number] Garfield Nava APRN Screening for cardiovascular condition Discharge Disposition: Home or Self Care Social History Tobacco Use Types Packs/Day Years Used Date Smoking Tobacco: Never Assessed Comments Unknown Sex and Gender Information Value Date Recorded Sex Assigned at Not on file Legal Sex Female 6:46 AM EDT Gender Identity Not on file Sexual Orientation Not on file documented as of this encounter Discharge Disposition Disposition Code Departure Means Destination Home or Self Care documented in this encounter Plan of Treatment Not on file documented as of this encounter Procedures Procedure Name Priority Date/Time Associated Diagnosis Comments [facility] VASCULAR CVMHU SCREENING SINGLE EXAM Routine 06/16/2015 4:05 PM EST Screening for cardiovascular condition documented in this encounter Results * [facility] VASCULAR CVMHU SCREENING SINGLE EXAM (06/16/2015 4:05 PM EST) Anatomical Region Laterality Modality Vascular Electrocardiogra phy 06/16/2015 2:14 PM EST Impressions 06/17/2015 11:46 AM EST ?[facility] ? [address] ? [place], [place] [address] ? [phone] ? [email or web address] ?Vascular Screening ?Report JORDON MANZANO ?Exam Date: ??06/16/2015 14:14 ? Family Phys: ?? Verona Simmons Age: ??35 ? Gender: F ?Exam Location: CVMHU ? Technologist: ??Tom Mendez, CODY : ??1980 Ht: ?Wt: ?HR: ? BSA: ? BMI: ? BP: ??112 ??/ 81 ?? mmHg ?Accession Number: ??[id number] History: ? Hyperlipidemia This is a limited screening exam. If there are abnormal findings you may be referred for a thorough diagnostic exam. ??Carotid Artery Screening ??Right Internal Carotid Velocities (cm/s):PSV:89 EDV: ??32 ??Left Internal Carotid Velocities (cm/s):PSV:84 ??EDV: ??34 ??Essentially no build-up of calcium or plaque seen in either the left or right carotid arteries. ??Abdominal Aortic Screening ??Aorta scan not performed. ??Peripheral Artery Screening ??Peripheral artery screening not performed. ??Findings & Recommendations ? Significant Findings:NO ??No plaque seen during carotid artery screening. No need for follow up. ?The blood pressure taken at this screening is within normal ranges described by the [place] [employer] guidelines. ?? Narrative Procedure Note Haroon Guzman MD - 06/17/2015 IMPRESSION [facility] [address] [place] [address] [email or web address] Vascular Screening Report JORDON MANZANO Exam Date: 06/16/2015 14:14Family Phys: Verona Simmons MD Age: 35 Gender: F [facility] Tom [facility] RVT : 1980 Ht: Wt: HR: BSA: BMI: BP: 112 / 81 mmHgAccession Number: [id number] History: Hyperlipidemia This is a limited screening exam. If there are abnormal findings you maybe referred for a thorough diagnostic exam. Carotid Artery Screening Right Internal Carotid Velocities (cm/s):PSV:89 EDV: 32 Left Internal Carotid Velocities (cm/s):PSV:84 EDV: 34 Essentially no build-up of calcium or plaque seen in either the left orright carotid arteries. Abdominal Aortic Screening Aorta scan not performed. Peripheral Artery Screening Peripheral artery screening not performed. Findings & RecommendationsSignificant Findings:NO No plaque seen during carotid artery screening. No need for follow up. The blood pressure taken at this screening is within normal rangesdescribed by the [place] [employer] guidelines. Garfield Nava APRN IMG VASCULAR ORDER SAM Final Result documented in this encounter Visit Diagnoses Diagnosis Screening for cardiovascular condition Screening for other and unspecified cardiovascular conditions documented in this encounter
--- OUTSIDE RECORDS SUMMARY | 2024-06-18 10:35 | XMS_ITS | Encounter Summary ---
Author Organization [place] [address] Care Team Providers Care Gunite Mixer Name Role Phone Unavailable Primary Care Provider Unavailabl e Encounter Details Date Type Department Care Team (Late st Contact Info) Description 04/10/2004 4:14 PM EDT - 04/10/2004 11:59 PM EDT Hospital Encounter [facility] GRT Dr Karie Social History Tobacco Use Types Packs/Day Years [...]
[2024-06-18 10:55] LABS: Basophils # 0.1 K/mm3 (0-0.2); Basophils % 1.3 % (0.1-2.0); Eosinophils % 0.5 % (0.1-12.0); Hematocrit 42.4 % (37.0-47.0); Hemoglobin 14.5 g/dL (12.2-16.2); Lymphocytes # 2.6 K/mm3 (0.7-4.5); Lymphocytes % 37.6 % (10-50); Mean Corpuscular HGB Conc 34.3 g/dL (31.8-35.4); Mean Corpuscular Hemoglobin 30.9 pg (27.0-31.2); Mean Corpuscular Volume 90.1 fl (81-99); Mean Platelet Volume 7.6 fl (7.4-10.4); Monocytes # 0.4 K/mm3 (0.1-1.0); Monocytes % 5.6 % (1.7-9.3); Neutrophils # 3.9 K/mm3 (1.8-7.8); Platelet Count 389 K/mm3 (142-424); Red Cell Distribution Width 14.2 % (11.5-17.5)
[2024-06-18 11:27] LABS: Alanine Aminotransferase 15 U/L (12-78); Albumin Level 4.5 g/dl (3.5-5.0); Alkaline Phosphatase 56 U/L (38-126); Anion Gap 8.2 mEq/L (5-15); Aspartate Amino Transferase 24 U/L (14-36); Bilirubin,Direct 0.3 mg/dl (0.0-0.4); Bilirubin,Indirect 0.5 mg/dL (0.0-0.9); Bilirubin,Total 0.8 mg/dl (0.2-1.3); Bilirubin,Unconjugated 0.5 mg/dL (0.0-1.1); Blood Urea Nitrogen 10 mg/dl (7-17); Calcium 9.7 mg/dl (8.4-10.2); Carbon Dioxide 29 mmol/L (22.0-30.0); Chloride 107 mmol/L (98-107); Chol/HDL Ratio 3.5 (1-3.5); Cholesterol 235 mg/dl (140-200); Estimated Glomerular Filt Rate 78 ml/min (>60); GFR (African American) 95 ML/MIN (>60); Glucose 92 mg/dl (74-100); HDL Cholesterol 68 mg/dl (40-60); Magnesium 1.8 mg/dl (1.6-2.3); Potassium 4.2 mmoL/L (3.5-5.1); Sodium 140 mmol/L (136-145); Total Protein,Serum 7.2 g/dl (6.3-8.2); Triglycerides 128 mg/dl (30-150); VLDL Cholesterol 26 mg/dL (0-40)
[2024-06-18 11:38] LABS: Direct LDL Cholesterol 146.51 mg/dL (100-129)
[2024-06-18 11:58] LABS: Thyroid Stimulating Hormone 7.19 uIU/mL (0.465-4.68)
[2024-06-18 16:43] LABS: Free T4 (Free Thyroxine) 0.89 ng/dl (0.78-2.19)
== END 2024-06-18 23:59 | disposition home or self-care (01) ==
LOC: LAB 10:33
PROVIDERS: PCP Family Medicine; Visit Provider Physician Assistant
DX: R00.2 Palpitations (principal); R53.83 Other fatigue; R94.31 Abnormal electrocardiogram [ECG] [EKG]; R06.00 Dyspnea, unspecified; R07.9 Chest pain, unspecified
CPT/HCPCS: 36415; 80048; 80061; 80076; 83735; 84439; 84443; 85025; 93270

== ENCOUNTER 2024-06-19 07:27 | Outpatient (CLI) | payer BC, SELFPAY ==
--- OUTSIDE RECORDS SUMMARY | 2024-06-19 07:29 | XMS_ITS | Encounter Summary ---
Author Organization [place] [address] Care Team Providers Care Global Coordinator Name Role Phone WichoGil landerosninoska Cantu Primary Care Provider [phone] Reason for Visit * Auth/Cert/Inpt Specialty Diagnoses / Procedures Referred By Contac t Referred To Contact Diagnoses Biliary colic Biliary colic [K80.50] Procedures MS LAP,CHOLECYSTECTOMY LAPAROSCOPIC CHOLECYSTECTOMY POSSIBLE OPEN Referral ID Status Reason Start Date Expiration Date Visits Re quested Visits Authorized [id number] 1 1 Encounter Details Date Type Department Care Team (Late st Contact Info) Description 10/14/2016 1:00 PM EDT - 10/14/2016 2:00 PM EDT Surgery [facility] PERIOP [address] [facility] [place] [address] Bennett Jimenez MD [address] [place] [address] LAPAROSCOPIC CHOLECYSTECTOMY POSSIBLE OPEN Surgery Details Date/Time [...] - 10/14/2016 1:25 PM EDT +++++++++++++++++++++++++++++++++++++++++++++++++++++++++++++++++++ [facility] Discharge Instructions - [...] or vomiting. 5. Walk! 6. Please call [phone] for a follow-up appointment in 7 to [...] Code Departure Means Destination Home or Self [place] documented in this encounter H&P Notes * Floyd Vega NP - 10/14/2016 11:15 AM EDT [facility] History and Physical Name: Marycruz Manzano ADDRESS: [address] [place] [address] [place] [address] : 1980 AGE: 36 y.o. Assessment: Biliary [...] mass index is 28.75 kg/(m^2). Document Text [facility]/Hairspring Inspector DICTATOR: Natalia Jimenez OPERATIVE REPORT DATE OF [...] MD - 10/14/2016 12:56 PM EDT [facility] OPERATIVE/PROCEDURE NOTE Marycruz Manzano October 14, 2016 Body mass index is 28.75 kg/(m^2). Active Hospital Problems Diagnosis ??? *Biliary colic PRE-OP DIAGNOSIS: Biliary colic [K80.50] POST-OP DIAGNOSIS: Biliary colic [K80.50] PROCEDURE(S): Procedure(s): LAPAROSCOPIC CHOLECYSTECTOMY SURGEON(S): Surgeon(s) and Role: * Bennett Jimenez MD - Primary OR STAFF: Motorcoach Operator: Jocy Musa RN Scrub Villalobos: Tammi Redd, YARY Scrub Assist: Carlota Ruiz CST 2nd Motorcoach Operator: Gian Leahy RN; Godwin Chris ST ANESTHESIA: [...] Number ?Collected Date/Time ? Received Date/Time ? [id number] ? 10/14/16 12:41 EDT ?10/14/16 21:56 EDT [...] No periductal lymph node is identified. ? Ms Access Database Developer sections to include inked margin are submitted in one ? cassette. /TE ? DRB/MMD ? Microscopic Description ? Microscopic examination is performed and the findings corroborate the ? diagnosis. [facility] 10/14/2016 12:4 1 PM EDT Bennett Jimenez MD PATHOLOGY ORDERABLES Final Resul t [facility] [address] [place] [address] * POCT URINE (10/14/2016 11:23 AM EDT) Preg Test, Ur neg POS/NEG [facility] Lot Number [id number] [facility] Expiration Date [facility] SeriAl # [facility] Control Line Yes YES/NO [facility] 10/14/2016 11:2 3 AM EDT Isha White AIRLINE TRANSPORT PILOT POINT OF CARE TEST ORDERABLE S Final Result [facility] [address] [place] [address] documented in this encounter Visit Diagnoses Diagnosis [...] 10/14/2016 documented in this encounter Care Teams Global Coordinator Relationship Specialty Start Date End Date Aldair Sands [address] [place] [address] PCP - General Family Medicine 09/19/16 documented as of this encounter
--- OUTSIDE RECORDS SUMMARY | 2024-06-19 07:29 | XMS_ITS | Encounter Summary ---
Author Organization [place] [address] Care Team Providers Care Medical Delivery Technician Name Role Phone Aldair Sands Primary Care Provider [phone] Reason for Visit * Reason Comments Other previous patient, sc alp cysts * Consultation (Routine) - Closed Specialty Diagnoses / Procedures Referred By Contac t Referred To Contact Surgery / General Surgery Diagnoses gallstones Procedures NEW PATIENT Bennett Jimenez MD [address] [place] [address] Phone: tel: fax: Referral ID Status Reason Start Date Expiration Date Visits Re quested Visits Authorized [id number] Closed 09/08/2016 09/08/2017 99 99 Encounter Details Date Type Department Care Team (Late st Contact Info) Description 07/06/2017 9:20 AM EST Office Visit SEP Gen Surg [address] [address] Bennett Jimenez MD [address] [facility] [address] [place] [id number] Scalp mass Social History Tobacco Use Types [...] lump documented in this encounter Care Teams Medical Delivery Technician Relationship Specialty Start Date End Date Aldair Sands [address] [place] [address] PCP - General Family Medicine 09/19/16 documented as of this encounter
--- OUTSIDE RECORDS SUMMARY | 2024-06-19 07:29 | XMS_ITS | Referral Summary ---
Author Organization [facility] Address [address] [facility] [address] Phone Care Team Providers Care Projection Welding Machine Operator Name Role Phone Aldair Sands Primary Care Provider [phone] Allergies Active Allergy Reactions Criticality Noted Date [...] Insurance JOSSELYN PPO JOSSELYN PPO Care Teams Projection Welding Machine Operator Relationship Specialty Start Date End Date Aldair Sands [address] [place] [phone] PCP - General Family Medicine 09/19/16
--- OUTSIDE RECORDS SUMMARY | 2024-06-19 07:29 | XMS_ITS | Clinical Summary ---
Author Organization [facility] Address [address] [facility] [place] [address] Phone Care Team Providers Care Printing Estimator Name Role Phone Aldair Sands Primary Care Provider [phone] Allergies Active Allergy Reactions Criticality Noted Date [...] CHOLECYSTECTOMY ; Surgeon: Bennett Jimenez MD; Location: [facility]; Service: General SOFT TISSUE BIOPSY 08/18/2017 N/A EXCISIONAL BIOPSY SCALP MASS x3; Surgeon: Bennett Jimenez MD; Location: [facility]; Service: General Medical History Medical [...] Insurance JOSSELYN PPO JOSSELYN PPO Care Teams Printing Estimator Relationship Specialty Start Date End Date Aldair Sands [address] [place] [address] PCP - General Family Medicine 09/19/16
--- OUTSIDE RECORDS SUMMARY | 2024-06-19 07:29 | XMS_ITS | Encounter Summary ---
Author Organization [place] [address] Care Team Providers Care Oil Truck Driver Name Role Phone Aldair Sands Primary Care Provider Reason for Referral * Holter Monitor (Emergency) - Pending Review Specialty Diagnoses / Procedures Referred By Contac t Referred To Contact Radiology Diagnoses Palpitations Procedures HM HOLTER MONITOR RECORDING AND ANALYSIS [address] APRN [address] [place] [address] Phone: tel: fax: Referral ID Status Reason Start Date Expiration Date V isits Requested Visits Authorized [id number] Pending Review 08/30/2022 08/30/2024 1 1 * (Routine) - Closed Specialty Diagnoses / Procedures Referred By Contac t Referred To Contact Diagnoses Chest pain, unspecified type Procedures LOW RISK CHEST PAIN APPOINTMENT [address] APRN [address] [place] [address] Phone: tel: fax: Referral ID Status Reason Start Date Expiration Date Visits Re quested Visits Authorized [id number] Closed 08/30/2022 08/30/2023 1 1 Reason for Visit * Reason Comments Tachycardia Feels her heart is r acing, hx pvc's, chest pain Encounter Details Date Type Department Care Team (Late st Contact Info) Description 08/30/2022 3:51 PM EST - 08/30/2022 6:34 PM EST [facility] [address] [place] [address] Rylan Rojas MD [address] [place] [address] Chest pain, unspecified type (Primary Dx); [...] cardiology for referral to speak with a imaging tech, you should also contact central scheduling to [...] Means Destination Comment s Home or Self Fdc documented in this encounter ED Notes * [...] CHOLECYSTECTOMY ; Surgeon: Bennett Jimenez MD; Location: [facility] OR; Service: General ??? SOFT TISSUE BIOPSY N/A 08/18/2017 EXCISIONAL BIOPSY SCALP MASS x3; Surgeon: Bennett Jimenez MD; Location: [facility]; Service: General ??? TONSILLECTOMY [...] BASELINE W/ REFLEX Result Value Ref Range vm-nTmekxedj-H <6 <14 ng/L Narrative Ingestion of shay doses of biotin (>5 mg/day) taken within 8 hours of drawing blood sample can interfere with this immunoassay test. EK EKG 12 LEAD Narrative NOTICE: Preliminary tracing available for review; Final Interpretation by physician to follow. Impression [facility] Test Date: 2022-08-30 Pat Name: MARYCRUZ MANZANO Department: DEPID Room: 05 Gender: Female Customer Care Voice Consultant: Torsten : 1980 Requested By: [facility] Order Number: [id number] Reading MD: Measurements Intervals [place] Rate: 78 P: 45 MI: 165 QRS: 47 QRSD: 84 T: -1 [...] HIGH SENSITIVITY 2HR (08/30/2022 5:39 PM EST) de-uAtgraiba-B 2HR <6 <14 ng/L 08/30/2022 6:12 PM EST [facility] Comment:See the website vangie powell for rule out [place] care pathway, conditions other than AMI that can cause elevated hs cTnT, and comparison of values from the 4th and 5th generation Herb tests. https://askmayoexpert.[facility].org/topic/clinical-answers/gnt-86559132/cpm-203 55482 hs-cTnT 2Hr Delta from Baseline 08/30/2022 6:12 PM EST [facility] Comment:Unable to calculate, result is outside instrument's measuring range. Blood VENOUS BLOOD / Unknown Venipuncture / Unknown 08/30/2022 5:39 PM EST 08/30/2022 5:50 PM EST Narrative [facility] - 08/30/2022 6:12 PM EST Ingestion of shay doses of biotin (>5 mg/day) taken within 8 hours of drawing blood sample can interfere with this immunoassay test. us Rylan Rojas MD CHEMISTRY ORDERABLES Malu l Result [facility] [address] [place] [address] * XR CHEST AP PORTABLE [...] - 4.200 mcIU/mL 08/30/2022 7:48 PM EST [facility] Blood VENOUS BLOOD / Unknown Venipuncture / Unknown 08/30/2022 4:27 PM EST 08/30/2022 4:33 PM EST Narrative [facility] - 08/30/2022 7:48 PM EST Ingestion of shay doses of biotin (>5 mg/day) taken within 8 hours of drawing blood sample can interfere with this immunoassay test. [address] APRN CHEMISTRY ORDERABLES Final Result Performing Organization Address [facility]/ZIP Co de Phone Number [facility] [address] [facility] , [place] [address] * TROPONIN-T HIGH SENSITIVITY BASELINE W/ REFLEX (08/30/2022 4:03 PM EST) yi-lPdndwybe-D <6 <14 ng/L 08/30/2022 4:25 PM EST [facility] Comment:See the website [employer] for rule out [place] care pathway, conditions other than AMI that can cause elevated hs cTnT, and comparison of values from the 4th and 5th generation Herb tests. https://askmayoexpert.[facility].org/topic/clinical-answers/gnt-27546076/cpm-203 60271 Blood VENOUS BLOOD / Unknown Venipuncture / Unknown 08/30/2022 4:03 PM EST 08/30/2022 4:06 PM EST Narrative [facility] - 08/30/2022 4:25 PM EST Ingestion of shay doses of biotin (>5 mg/day) taken within 8 hours of drawing blood sample can interfere with this immunoassay test. Rylan Rojas MD CHEMISTRY ORDERABLES Malu l Result [facility] [address] [place] [address] * (ABNORMAL) BASIC METABOLIC PANEL (08/30/2022 4:03 PM EST) [facility] Sodium 141 136 - 145 mmol/L 08/30/2022 4:24 PM EST [facility] Potassium 3.5 3.5 - 5.0 mmol/L 08/30/2022 4:24 PM [facility] Chloride 105 98 - 107 mmol/L 08/30/2022 4:24 PM [facility] Total CO2 22 22 - 29 mmol/L 08/30/2022 4:24 PM [facility] Anion Gap 14 7 - 16 mmol/L 08/30/2022 4:24 PM [facility] Calcium 10.0 8.6 - 10.4 mg/dL 08/30/2022 4:24 PM [facility] Glucose Lvl 102(H) 74 - 100 mg/dL 08/30/2022 4:24 PM EST [facility] BUN 7 6 - 20 mg/dL 08/30/2022 4:24 PM [facility] Creatinine 0.94 0.51 - 1.30 mg/dL 08/30/2022 4:24 PM [facility] eGFR (CKD-EPIcr 2020) 78 >=60 mL/min/1.7 3 m2 08/30/2022 4:24 PM [facility] Comment:Estimated GFR was ca lculated using the CKD-EPIcr (2020) equation refit without race. The equation is recommended by the National Kidney Foundation - [place] [employer] of Nephrology Task Force. Blood VENOUS BLOOD / Unknown Venipuncture / Unknown 08/30/2022 4:03 PM EST 08/30/2022 4:06 PM EST Rylan Rojas MD CHEMISTRY ORDERABLES Malu servin Result [facility] [address] [place] [id number] * (ABNORMAL) CBC (08/30/2022 4:03 PM EST) WBC 7.7 3.7 - 10.3 x10(3)/mcL 08/30/2022 4:09 PM EST [facility] RBC 4.90 3.90 - 5.20 x10(6)/mcL 08/30/2022 4:09 PM EST [facility] Hgb 14.4 11.2 - 15.7 g/dL 08/30/2022 4:09 PM EST [facility] Hct 44.2 34.0 - 45.0 % 08/30/2022 4:09 PM EST [facility] MCV 90.2 80.0 - 100.0 fL 08/30/2022 4:09 PM EST [facility] MCH 29.4 26.0 - 34.0 pg 08/30/2022 4:09 PM EST [facility] MCHC 32.6 30.7 - 35.5 g/dL 08/30/2022 4:09 PM EST [facility] RDW 13.6 <=14.9 % 08/30/2022 4:09 PM EST [facility] Platelet 462(H) 155 - 369 x10(3)/[facility] 08/30/2022 4:09 PM EST [facility] MPV 9.8 8.8 - 12.5 fL 08/30/2022 4:09 PM EST [facility] Blood VENOUS BLOOD / Unknown Venipuncture / Unknown 08/30/2022 4:03 PM EST 08/30/2022 4:06 PM EST Rylan Rojas MD HEMATOLOGY ORDERABLES Fin al Result [facility] [address] [place], [place] [id number] * EK EKG 12 LEAD (08/30/2022 3:50 PM EST) Anatomical Region Laterality Modality Electrocardiogra phy 08/30/2022 4:19 PM EST Impressions 08/30/2022 10:38 PM EST ?[place] [facility] ? Test Date: ?2022-08-30 Pat Name: ? MARYCRUZ MANZANO ?Department: ?? DEPID ? Room: ? 05 Gender: ? Female ? Customer Care Voice Consultant: ?? Cw : ?1980 ? Requested By: [facility] Order Number: [id number] ?Reading MD: ?? [place]ie Nghia ? Measurements Intervals ?[place] ? Rate: ? 78 ? P: ?45 MI: ? 165 ?QRS: ?47 QRSD: ? 84 ? T: ?-1 QT: ? 366 ? QTc: ?419 ? Interpretive Statements SINUS RHYTHM WITH OCCASIONAL VENTRICULAR PREMATURE COMPLEXES NONSPECIFIC T-WAVE ABNORMALITY Electronically Signed On 08-30-2022 22:38:19 EST by Jonathan Agrawal Narrative Procedure Note Jonathan Agrawal MD - 08/30/2022 IMPRESSION [place] [facility] Test Date: 2022-08-30 Pat Name: MARYCRUZ MANZANO Department: DEPID Room: 05 Gender: Female Customer Care Voice Consultant: Torsten : 1980 Requested By: [facility] Order Number: [id number] Noni MD: Jonathan Agrawal Measurements Intervals [place] Rate: 78 P: 45 MI: 165 QRS: 47 QRSD: 84 T: -1 [...] 3 documented in this encounter Care Teams Oil Truck Driver Relationship Specialty Start Date End Date Aldair Sands [address] [place] [address] PCP - General Family Medicine 09/19/16 documented as of this encounter
--- OUTSIDE RECORDS SUMMARY | 2024-06-19 07:29 | XMS_ITS | Encounter Summary ---
Author Organization [place] [address] Care Team Providers Care Puttier Name Role Phone Aldair Sands Primary Care Provider Reason for Visit * Reason Onset Date Comments Surgery 07/14/2017 Encounter Details Date Type Department Care Team (Late st Contact Info) Description 07/14/2017 Telephone SEP Gen Surg EDG [address] [facility] [address] [place] [address] Daisy Jansen RMA Surgery Social [...] on filedocumented in this encounter Care Teams Puttier Relationship Specialty Start Date End Date Aldair Sands [address] [place] [address] PCP - General Family Medicine 09/19/16 documented as of this encounter
--- OUTSIDE RECORDS SUMMARY | 2024-06-19 07:29 | XMS_ITS | Encounter Summary ---
Author Organization [place] [address] Care Team Providers Care Fine Wire Drawer Name Role Phone Aldair Sands Primary Care Provider Encounter Details Date Type Department Care Team (Late st Contact Info) Description 11/03/2016 Orders Only SEP Gen Surg [address] [address] Bennett Jimenez MD [address] [facility] [address] [place], [place] [id number] Wound infection (Primary Dx) Social History Tobacco [...] classified documented in this encounter Care Teams Fine Wire Drawer Relationship Specialty Start Date End Date Aldair Sands [address] [place] [address] PCP - General Family Medicine 09/19/16 documented as of this encounter
--- OUTSIDE RECORDS SUMMARY | 2024-06-19 07:29 | XMS_ITS | Encounter Summary ---
Author Organization [facility] [place] [address] Care Team Providers Care Weight Yardage Checker Name Role Phone Aldair Sands Primary Care [...] on filedocumented in this encounter Care Teams Weight Yardage Checker Relationship Specialty Start Date End Date Aldair Sands [address] [place] [address] PCP - General Family Medicine 09/19/16 documented as of this encounter
--- OUTSIDE RECORDS SUMMARY | 2024-06-19 07:29 | XMS_ITS | Encounter Summary ---
Author Organization [place] [address] Care Team Providers Care Taxation Consultant Name Role Phone Aldair Sands Primary Care Provider Reason for Visit * Auth/Cert/Inpt Specialty Diagnoses / Procedures Referred By Contac t Referred To Contact Diagnoses Mass of scalp Mass of scalp [R22.0] Procedures EXCISIONAL BIOPSY SCALP MASS x3 Referral ID Status Reason Start Date Expiration Date Visits Re quested Visits Authorized [id number] 1 1 Encounter Details Date Type Department Care Team (Late st Contact Info) Description 08/18/2017 1:15 PM EST - 08/18/2017 2:00 PM EST Surgery [facility] [address] [facility] [place] [address] Bennett Jimenez MD [address] SE[address] WEIGHT MGT [place], [place] [id number] EXCISION OF MASS OR SKIN LESION Surgery [...] 08/18/2017 2:23 PM EST +++++++++++++++++++++++++++++++++++++++++++++++++++++++++++++++++++ +++++++++++++++++++++++++++++++++++++++++++++++++++++++++++++++++++ [facility] Discharge Instructions - Following Anesthesia We [...] our office at . Get Well Soon! [facility]hes[facility] Call Surgeon if you have: ?? [...] or polysporin as needed 6. Please call [phone] for a follow-up appointment in 7 to [...] Vega NP - 08/18/2017 12:03 PM EST [facility] History and Physical Name: Marycruz Echeverria ADDRESS: [address] [place] [address] : 1980 AGE: 37 y.o. Assessment: Mass [...] N/A 10/14/2016 LAPAROSCOPIC CHOLECYSTECTOMY ; Surgeon: Bennett Jimenze MD; Location: [facility] MAIN OR; Service: General ??? TONSILLECTOMY seven [...] Carlos Jimenez M.D. By: Wilmer Job ID: [id number] Doc ID: [id number] * Bennett Jimenez MD - 08/18/2017 2:23 PM EST [facility] OPERATIVE/PROCEDURE NOTE Marycruz Echeverria August 18, 2017 Body mass index is 28.21 kg/m??. Active Hospital Problems Diagnosis ??? *Scalp mass PRE-OP DIAGNOSIS: Mass of scalp [R22.0] POST-OP DIAGNOSIS: Mass of scalp [R22.0] PROCEDURE(S): Procedure(s): EXCISIONAL BIOPSY SCALP MASS x3 SURGEON(S): Surgeon(s) and Role: * Bennett Jimenez MD - Primary OR STAFF: Lead Trainer: Iris Stephens RN Scrub Villalobos: Keke Osborne, PLATE CORRECTOR Scrub Assist: Yanelis Johnson RN ANESTHESIA: Monitored [...] 2:53 PM EST Patient and patient's responsible democrat given discharge instructions, verbalized understanding and agreed with treatment plan. 1 printed rx for percocet given. Instructed not to drink alcohol, drive or take tylenol while taking narcotic. Patient drinking without difficulty. Patient wheeled out of [facility] in stable condition with visitor. * Carley [...] or alcohol 24 hours prior to surgery. Sausage Cooker ??? On the day of surgery, it is important to have a Sausage Cooker, someone who is 18 years or older, [...] a Living Will and Durable Power of Acetaldehyde Converter Operator for Healthcare, please bring a copy. ??? [...] are here. [facility] Day Surgery [facility] - [place] at [phone]; [place]: Entrance 1A, go to [address] [place] [address] on the [facility] nurse[facility] station documented in this encounter [...] PM EST) CASE REPORT Surgical Pathology ?Case: [id number] ? Authorizing Provider: ??Bennett Jimenez MD ? Collected: ? 08/18/2017 1400 ? Ordering Location: ? [facility] ?Received: ?08/19/2017 0828 ? Pathologist: ? Nadia Wilde, ? MD ? Specimen: ?Head, cysts of the head ? 08/22/2017 12:17 PM [facility] FINAL DIAGNOSIS Cyst of head, excision: - Benign pilar cysts. 08/22/2017 12:17 PM [facility] S DESCRIPTION Received in formalin labeled with the patient's name and designated cyst of the head are three glistening long-white to carrizales-long cysts 1.4 to 2.1 cm in greatest dimension. One contains uniform, soft pale long material and the other two soft, carrizales-long material. Thinner Sprayer sections of each in two cassettes, largest cyst in A1. / CDM 08/22/2017 12:17 PM [facility] MICROSCOPIC DESCRIPTION Microscopic examination is performed and the findings corroborate the diagnosis. 08/22/2017 12:17 PM [facility] FLOW CYTOMETRY SUMMARY 08/22/2017 12:17 PM [facility] EMBEDDED IMAGES 08/22/2017 12:17 PM EST [facility] Tissue SPECIMEN FROM HEAD AND NECK STRUCTURE / Unknown 08/18/2017 2:00 PM EST 08/19/2017 8:28 AM EST Bennett Jimenez MD PATHOLOGY ORDERABLES Final Resul t Performing Organization Address [facility] Co de Phone Number [facility] [address] [place] [address] * POCT URINE (08/18/2017 12:28 PM EST) Preg Test, Ur neg POS/NEG [facility] Lot Number [id number] [facility] Expiration Date 11/13/2018 [facility] SeriAl # [facility] Control Line Yes YES/NO [facility] 08/18/2017 12:2 8 PM EST us Sandra Alvarez APRN POINT OF CARE TEST ORDERABLES Final Result Performing Organization Address [facility] Co de Phone Number [facility] [address] [place] [address] documented in this encounter Visit Diagnoses Diagnosis [...] 08/18/2017 documented in this encounter Care Teams Taxation Consultant Relationship Specialty Start Date End Date Aldair Sands [address] [place] [phone] PCP - General Family Medicine 09/19/16 documented as of this encounter
--- OUTSIDE RECORDS SUMMARY | 2024-06-19 07:29 | XMS_ITS | Encounter Summary ---
Author Organization [place] [address] Care Team Providers Care Fish Cutter Name Role Phone Aldair Sands Primary Care Provider Reason for Visit * Auth/Cert/Inpt Specialty Diagnoses / Procedures Referred By Contac t Referred To Contact Diagnoses Mass of scalp Mass of scalp [R22.0] Procedures EXCISIONAL BIOPSY SCALP MASS x3 Referral ID Status Reason Start Date Expiration Date Visits Re quested Visits Authorized [id number] 1 1 Encounter Details Date Type Department Care Team (Latest Contact Info) Description 08/18/2017 11:42 AM EST - 08/18/2017 2:54 PM EST Hospital Encounter [facility] SAME DAY SURGERY [address] [facility] [place] [address] Bennett Jimenez MD [address] [facility] [place] [address] Preop testing (Primary Dx); Scalp mass; Mass [...] - 08/18/2017 2:23 PM EST +++++++++++++++++++++++++++++++++++++++++++++++++++++++++++++++++++ +++++++++++++++++++++++++++++++++++++++++++++++++++++++++++++++++++ [facility] Discharge Instructions - Following Anesthesia [...] our office at . Get Well Soon! [place] Anesthesiologists Call Surgeon if you have: ?? [...] or polysporin as needed 6. Please call [phone] for a follow-up appointment in 7 to [...] Code Departure Means Destination Home or Self Retirement documented in this encounter H&P Notes * Floyd Vega NP - 08/18/2017 12:03 PM EST [facility] History and Physical Name: Marycruz Echeverria ADDRESS: [address] [place] [address] : 1980 AGE: 37 y.o. Assessment: Mass [...] CHOLECYSTECTOMY ; Surgeon: Bennett Jimenez MD; Location: [facility] MAIN OR; Service: General ??? [...] Carlos Jimenez M.D. By: Wilmer Job ID: [id number] Doc ID: [id number] * Bennett Jimenez MD - 08/18/2017 2:23 PM EST [facility] OPERATIVE/PROCEDURE NOTE Marycruz Echeverria August 18, 2017 Body mass index is 28.21 kg/m??. Active Hospital Problems Diagnosis ??? *Scalp mass PRE-OP DIAGNOSIS: Mass of scalp [R22.0] POST-OP DIAGNOSIS: Mass of scalp [R22.0] PROCEDURE(S): Procedure(s): EXCISIONAL BIOPSY SCALP MASS x3 SURGEON(S): Surgeon(s) and Role: * Bennett Jimenez MD - Primary OR STAFF: Licensed Electrician: Iris Stephens RN Scrub Villalobos: Keke Osborne UX DESIGN LEAD Scrub Assist: Yanelis Johnson RN ANESTHESIA: Monitored [...] or alcohol 24 hours prior to surgery. Leather Polisher ??? On the day of surgery, it is important to have a Leather Polisher, someone who is 18 years or older, [...] a Living Will and Durable Power of Balling Head Tender for Healthcare, please bring a copy. ??? [...] are here. Same Day Surgery Unit - [place] at [phone]; [place]: Entrance 1A, go to [address] [place] [address] on the [facility] nurse's station documented in this encounter Plan [...] PM EST) CASE REPORT Surgical Pathology ?Case: [id number] ? Authorizing Provider: ??Bennett Jimenez MD ? Collected: ? 08/18/2017 1400 ? Ordering Location: ? [facility] ?Received: ?08/19/2017 0828 ? Pathologist: ? Andry, Nadia Caro, ? MD ? Specimen: ?Head, cysts of the head ? 08/22/2017 12:17 PM [facility] FINAL DIAGNOSIS Cyst of head, excision: - Benign pilar cysts. 08/22/2017 12:17 PM [facility] S DESCRIPTION Received in formalin labeled with the patient's name and designated cyst of the head are three glistening long-white to carrizales-long cysts 1.4 to 2.1 cm in greatest dimension. One contains uniform, soft pale long material and the other two soft, carrizales-long material. Manager Of Drilling sections of each in two cassettes, largest cyst in A1. / CDM 08/22/2017 12:17 PM [facility] MICROSCOPIC DESCRIPTION Microscopic examination is performed and the findings corroborate the diagnosis. 08/22/2017 12:17 PM [facility] FLOW CYTOMETRY SUMMARY 08/22/2017 12:17 PM [facility] EMBEDDED IMAGES 08/22/2017 12:17 PM [facility] Tissue SPECIMEN FROM HEAD AND NECK STRUCTURE / Unknown 08/18/2017 2:00 PM EST 08/19/2017 8:28 AM EST us Bennett Jimenez MD PATHOLOGY ORDERABLES Final Resul t Performing Organization Address City/[facility]/ZIP Co de Phone Number [facility] 1 [place] [address] * POCT URINE (08/18/2017 12:28 PM EST) Preg Test, Ur neg POS/NEG [facility] Lot Number [id number] [facility] Expiration Date 11/13/2018 [facility] SeriAl # [facility] Control Line Yes YES/NO [facility] 08/18/2017 12:2 8 PM EST us Sandra Alvarez CASH MANAGEMENT CLERK POINT OF CARE TEST ORDERABLES Final Result Performing Organization Address [facility] Co de Phone Number [facility] 1 [place] [address] documented in this encounter Visit Diagnoses Diagnosis [...] 08/18/2017 documented in this encounter Care Teams Fish Cutter Relationship Specialty Start Date End Date Aldair Sands [address] [place] [phone] PCP - General Family Medicine 09/19/16 documented as of this encounter
--- OUTSIDE RECORDS SUMMARY | 2024-06-19 07:29 | XMS_ITS | Encounter Summary ---
Author Organization [facility] [place] [address] Care Team Providers Care Color Consultant Name Role Phone Aldair Sands Primary [...] on filedocumented in this encounter Care Teams Color Consultant Relationship Specialty Start Date End Date Aldair Sands [address] [place] [phone] PCP - General Family Medicine 09/19/16 documented as of this encounter
--- OUTSIDE RECORDS SUMMARY | 2024-06-19 07:29 | XMS_ITS | Encounter Summary ---
Author Organization [place] [address] Care Team Providers Care Regrinder Operator Name Role Phone Aldair Sands Primary Care Provider Reason for Visit * Reason Comments Post-Operative Exam 1st post op, alfonso bermudez Encounter Details Date Type Department Care Team (Late st Contact Info) Description 10/20/2016 8:50 AM EDT Office Visit SEP Gen Surg [address] [address] Bennett Jimenez MD [address] [place] [address] Biliary colic (Primary Dx) Social History Tobacco [...] documented as of this encounter Care Teams Regrinder Operator Relationship Specialty Start Date End Date Aldair Sands [address] [place] [address] PCP - General Family Medicine 09/19/16 documented as of this encounter
--- OUTSIDE RECORDS SUMMARY | 2024-06-19 07:29 | XMS_ITS | Encounter Summary ---
Author Organization [place] [address] Care Team Providers Care Welding Engineer Name Role Phone Aldair Sands Primary Care Provider Reason for Visit * Auth/Cert/Inpt Specialty Diagnoses / Procedures Referred By Mike t Referred To Contact Diagnoses Mass of scalp Mass of scalp [R22.0] Procedures EXCISIONAL BIOPSY SCALP MASS x3 Referral ID Status Reason Start Date Expiration Date Visits Re quested Visits Authorized [id number] 1 1 Encounter Details Date Type Department Care Team (Late st Contact Info) Description 08/18/2017 1:36 PM EST Anesthesia Event [facility] [address] [place] [address] Haroon Oneill DO [address] [place] [phone] Sandra Alvarez, FURNACE PROCESS PLANT OPERATOR [address] [place] [address] Anesthesia Record Procedure Summary Procedure Name Responsible [...] acknowledgement of understanding from the receiving PACU/ICU store team member 1419 An Stop Meds Name Total midazolam [...] ROS Endo/Other Comments: Scalp mass (+) Hypothyroidism OIM CONSULTANT Additional Pre-evaluation comments Labs reviewed 09/2016 cbc [...] AIRWAY PLACEMENT (08/18/2017 1:46 PM EST) Narrative [facility] - 08/18/2017 1:46 PM EST Kofi Jane CRNA ? 08/18/2017 ??1:46 PM Intraop Airway Placement: ??Airway type: ??Nasal cannula salter Procedure Note Kofi Jane CRNA - 08/18/2017 1:46 PM EST Intraop Airway Placement: Airway type: Nasal cannula salter us Haroon Oneill DO [place] ANESTHESIA Final Res ult [facility] 1 [place] [address] documented in this encounter Visit Diagnoses Not [...] mL/hr documented in this encounter Care Teams Welding Engineer Relationship Specialty Start Date End Date Aldair Sands [address] [place] [address] PCP - General Family Medicine 09/19/16 documented as of this encounter
--- OUTSIDE RECORDS SUMMARY | 2024-06-19 07:30 | XMS_ITS | Encounter Summary ---
Author Organization [place] [address] Care Team Providers Care Senior Designer Name Role Phone Unavailable Primary Care Provider Unavailabl e Reason for Visit * Vascular Imaging (Routine) - Closed Specialty Diagnoses / Procedures Referred By Contetelvina t Referred To Contact Radiology Diagnoses Screening for cardiovascular condition Procedures [facility] VASCULAR CVMHU SCREENING SINGLE EXAM Garfield Nava APRN Referral ID Status Reason Start Date Expiration Date Visits Re quested Visits Authorized [id number] Closed 06/15/2015 06/14/2016 1 1 Encounter Details Date Type Department Care Team (Latest Contact Info) Description 06/16/2015 11:18 AM EST - 06/16/2015 11:59 PM EST Hospital Encounter EDG CVMHU ECHO VAS [place] [id number] Garfield Nava APRN Screening for cardiovascular condition [...] Procedure Name Priority Date/Time Associated Diagnosis Comments [facility] VASCULAR CVMHU SCREENING SINGLE EXAM Routine 06/16/2015 4:05 PM EST Screening for cardiovascular condition documented in this encounter Results * [facility] VASCULAR CVMHU SCREENING SINGLE EXAM (06/16/2015 4:05 PM EST) Anatomical Region Laterality Modality Vascular Electrocardiogra phy 06/16/2015 2:14 PM EST Impressions 06/17/2015 11:46 AM EST ?[facility] ? [address] ? [place], [place] [address] ? [phone] ? [email or web address] ?Vascular Screening ?Report JORDON MANZANO ?Exam Date: ??06/16/2015 14:14 ? Family Phys: ?? Verona Simmons Age: ??35 ? Gender: F ?Exam Location: [facility] ? Technologist: ??Tom Mendez, CODY : ??1980 Ht: ?Wt: ?HR: ? BSA: ? BMI: ? BP: ??112 ??/ 81 ?? mmHg ?Accession Number: ??[id number] History: ? Hyperlipidemia This is a limited [...] is within normal ranges described by the [place] [employer] guidelines. ?? Narrative Procedure Note Haroon Guzman MD - 06/17/[address] [facility] [address] [place] [address] [email or web address] Vascular Screening Report JORDON MANZANO Exam Date: 06/16/2015 14:14Family Phys: Verona Simmons MD Age: 35 Gender: F [facility] Tom [facility] RVT : 1980 Ht: Wt: HR: BSA: BMI: BP: 112 / 81 mmHgAccession Number: [id number] History: Hyperlipidemia This is a limited screening [...] screening is within normal rangesdescribed by the [place] [employer] guidelines. Garfield Nava APRN IMG VASCULAR ORDER SAM Final Result documented in this encounter Visit Diagnoses Diagnosis Screening for cardiovascular condition Screening for other and unspecified cardiovascular conditions documented in this encounter
--- OUTSIDE RECORDS SUMMARY | 2024-06-19 07:30 | XMS_ITS | Encounter Summary ---
Author Organization [place] [address] Care Team Providers Care International Trade Analyst Name Role Phone Unavailable Primary Care Provider [...]
--- OUTSIDE RECORDS SUMMARY | 2024-06-19 07:30 | XMS_ITS ---
Author Organization Unknown Medications Medication Instructions Effective Dates (start - stop) Status azithromycin 250 MG Oral Tablet 7182-22-42H14:00:00.000+00:00 - Completed levothyroxine sodium 0.1 MG Oral Tablet [id number]:00:00.000+00:0 0 - Completed levothyroxine sodium 0.1 MG Oral Tablet 2588-19-65P64:00:00.000+00:0 0 - Completed levothyroxine sodium 0.1 MG Oral Tablet [id number]:00:00.000+00:0 0 - Completed levothyroxine sodium 0.1 MG Oral Tablet 1251-60-62P55:00:00.000+00:0 0 - Completed levothyroxine sodium 0.1 MG Oral Tablet [id number]:00:00.000+00:0 0 - Completed levothyroxine sodium 0.1 MG Oral Tablet [id number]:00:00.000+00:0 0 - Completed levothyroxine sodium 0.1 MG Oral Tablet [id number]:00:00.000+00:0 0 - Completed levothyroxine sodium 0.1 MG Oral Tablet [id number]:00:00.000+00:0 0 - Completed Patient Care team information Name Category Status Period Participants - - Proposed period not known -
--- OUTSIDE RECORDS SUMMARY | 2024-06-19 07:30 | XMS_ITS | Encounter Summary ---
Author Organization [place] [address] Care Team Providers Care Mail Weigher Name Role Phone Unavailable Primary Care Provider Unavailabl e Reason for Visit * Reason Comments Other cholelithiasis with mildlyl thickened gallbladder wall per ultrasound * Consultation (Routine) - Closed Specialty Diagnoses / Procedures Referred By Mike martinez Referred To Contact Surgery / General Surgery Diagnoses gallstones Procedures NEW PATIENT Bennett Jimenez MD [address] [place] [address] Phone: tel: fax: Referral ID Status Reason Start Date Expiration Date Visits Re quested Visits Authorized [id number] Closed 09/08/2016 09/08/2017 99 99 Encounter Details Date Type Department Care Team (Late st Contact Info) Description 09/08/2016 9:40 AM EST Office Visit SEP Gen Surg [address] [address] [place] [address] [place] [address] [place] [address] Biliary colic Social History Tobacco Use Types [...]
--- OUTSIDE RECORDS SUMMARY | 2024-06-19 07:30 | XMS_ITS | Encounter Summary ---
Author Organization [place] [address] Care Team Providers Care Hotel Desk Clerk Name Role Phone WichoAldair Primary Care Provider Reason for Visit * Auth/Cert/Inpt Specialty Diagnoses / Procedures Referred By Contac t Referred To Contact Diagnoses Biliary colic Biliary colic [K80.50] Procedures [place] LAP,CHOLECYSTECTOMY LAPAROSCOPIC CHOLECYSTECTOMY POSSIBLE OPEN Referral ID Status Reason Start Date Expiration Date Visits Re quested Visits Authorized [id number] 1 1 Encounter Details Date Type Department Care Team (Latest Contact Info) Description 10/14/2016 10:45 AM EDT - 10/14/2016 4:05 PM EDT Hospital Encounter [facility] SAME DAY SURGERY [address] [facility] [place] [address] Bennett Jimenez MD [address] [place] [address] Preop testing; Biliary colic Discharge Disposition: Home [...] - 10/14/2016 1:25 PM EDT +++++++++++++++++++++++++++++++++++++++++++++++++++++++++++++++++++ [facility] Discharge Instructions - [...] or vomiting. 5. Walk! 6. Please call [phone] for a follow-up appointment in 7 to [...] Code Departure Means Destination Home or Self Detention documented in this encounter H&P Notes * Floyd Vega NP - 10/14/2016 11:15 AM EDT [facility] History and Physical Name: Marycruz Manzano ADDRESS: [address] [place] [address] [place] [address] : 1980 AGE: 36 y.o. Assessment: Biliary [...] mass index is 28.75 kg/(m^2). Document Text [facility] DICTATOR: Natalia Jimenez OPERATIVE REPORT DATE OF [...] MD - 10/14/2016 12:56 PM EDT [facility] OPERATIVE/PROCEDURE NOTE Marycruz Manzano October 14, 2016 Body mass index is 28.75 kg/(m^2). Active Hospital Problems Diagnosis ??? *Biliary colic PRE-OP DIAGNOSIS: Biliary colic [K80.50] POST-OP DIAGNOSIS: Biliary colic [K80.50] PROCEDURE(S): Procedure(s): LAPAROSCOPIC CHOLECYSTECTOMY SURGEON(S): Surgeon(s) and Role: * Bennett Jimenez MD - Primary OR STAFF: Test Skein Winder: Jocy Musa RN Scrub Villalobos: Tammi Redd, CAPTAIN WAITER/WAITRESS Scrub Assist: Carlota Ruiz CST 2nd Test Skein Winder: Gian Leahy RN; Godwin Chris, ANESTHESIA: General [...] Number ?Collected Date/Time ? Received Date/Time ? [id number] ? 10/14/16 12:41 EDT ?10/14/16 21:56 EDT [...] No periductal lymph node is identified. ? Six Horse Hitch Driver sections to include inked margin are submitted in one ? cassette. /TE ? DRB/MMD ? Microscopic Description ? Microscopic examination is performed and the findings corroborate the ? diagnosis. [facility] 10/14/2016 12:4 1 PM EDT us Bennett Jimenez MD PATHOLOGY ORDERABLES Final Resul t Performing Organization Address [facility] [address]/ZIP Co de Phone Number [facility] 1 [place] [address] * POCT URINE (10/14/2016 11:23 AM EDT) Preg Test, Ur neg POS/NEG [facility] Lot Number [id number] [facility] Expiration Date [facility] SeriAl # [facility] Control Line Yes YES/NO [facility] 10/14/2016 11:2 3 AM EDT us Isha White GRID INSPECTOR POINT OF CARE TEST ORDERABLE S Final Result Performing Organization Address [facility] [address]/[facility] Co de Phone Number [facility] 1 [place] [address] documented in this encounter Visit Diagnoses Diagnosis [...] 10/14/2016 documented in this encounter Care Teams Hotel Desk Clerk Relationship Specialty Start Date End Date Aldair Sands [address] [place] [phone] PCP - General Family Medicine 09/19/16 documented as of this encounter
--- OUTSIDE RECORDS SUMMARY | 2024-06-19 07:30 | XMS_ITS | Encounter Summary ---
Author Organization [place] [address] Care Team Providers Care Family Day Carer Name Role Phone Unavailable Primary Care Provider Unavailabl e Reason for Visit * Reason Onset Date Comments Surgery 09/08/2016 Encounter Details Date Type Department Care Team (Late st Contact Info) Description 09/08/2016 Telephone SEP Gen Surg EDG [address] [facility] [address] [place] [address] Nesha Campa RMA Surgery Social [...] 11:30 am Notified: 09/08/16 NPO: yes Pretest: [phone] documented in this encounter Plan of Treatment Not on file documented as of this encounter Visit Diagnoses Not on filedocumented in this encounter
--- OUTSIDE RECORDS SUMMARY | 2024-06-19 07:30 | XMS_ITS | Encounter Summary ---
Author Organization [place] [address] Care Team Providers Care Telecommunications Facility Examiner Name Role Phone Aldair Sands Primary Care Provider [phone] Encounter Details Date Type Department Care Team (Latest Contact Info) Description 10/04/2016 3:53 PM EDT - 10/04/2016 11:59 PM EDT Hospital Encounter [facility] [facility] [place] [id number] Pat, Radha Preop testing (Primary Dx); Biliary [...] acknowledgement of understanding from the receiving PACU/ICU sales team member 1320 An Stop Meds * Agents No [...] day of surgery that you have a MAINS AND SERVICE SUPERVISOR which is someone, 18 years or older, [...] eye makeup) lotion, powder, or deodorant. Nail uruguayan must be removed if uruguayan is on operative extremity. Please do not shave operative extremity or near the operative extremity. 13. If you have a Living Will and Durable Power of Phone Technician for Healthcare, please bring a copy. 14. [...] payment with you. We accept Visa, MasterCard, Pix4D and Lignol credit cards. Our Customer Service Representatives will be available by telephone for any questions regarding financial issues at [phone]. 17. Other 18. If you wear CPAP [...] you are here. Same Day Surgery Unit [facility] at [phone]; [place]: Entrance 1A, go to [address] [place] [address] on the [facility] nurse's station documented in this encounter [...] Percent 38.6 % [facility] [place] Percent 9.4 % [facility] Eos Percent 0.1 % [facility] Baso Percent 1.0 % [facility] Neut# 3.8 1.8 - 7.7 x10(3)/mcL [facility] Lymph# 2.9 0.6 - 4.8 x10(3)/mcL [facility] [place]# 0.7 0.0 - 1.3 x10(3)/mcL [facility] Eos# 0.0 0.0 - 0.5 x10(3)/mcL [facility] Baso# 0.1 0.0 - 0.2 x10(3)/mcL [facility] Blood specimen (specimen) 10/04/2016 4:11 PM EDT 10/04/2016 4:19 PM EDT us Isha White LOCKSMITH APPRENTICE HEMATOLOGY ORDERABLES Final Result [facility] [address] [place] [address] * (ABNORMAL) COMPREHENSIVE METABOLIC PANEL (10/04/2016 4:11 PM EDT) Pathologist [facility] Sodium 138 136 - 145 mmol/L [facility] Potassium 4.1 3.5 - 5.0 mmol/L [facility] Chloride 100 98 - 107 mmol/L [facility] Total CO2 24 22 - 29 mmol/L [facility] Anion Gap 14 7 - 16 mmol/L [facility] Calcium 10.1 8.6 - 10.2 mg/dL [facility] Glucose Lvl 91 74 - 100 mg/dL [facility] BUN 10 6 - 20 mg/dL [facility] Creatinine 0.90 0.51 - 1.30 mg/dL [facility] Albumin 4.5 3.5 - 5.2 gm/dL [facility] Total Protein 7.4 6.4 - 8.3 gm/dL [facility] Bili Total 0.6 0.1 - 1.3 mg/dL [facility] AST 65(H) <=40 IU/L [facility] ALT 84(H) <=41 IU/L [facility] Alk Phos 51 35 - 104 IU/L [facility] GFR Afr Am >60 [facility] GFR Non Afr Am >60 [facility] Blood specimen (specimen) UPPER LIMB STRUCTURE / Unknown 10/04/2016 4:11 PM EDT 10/04/2016 4:19 PM EDT Isha White LOCKSMITH APPRENTICE CHEMISTRY ORDERABLES Edited Result - Final [facility] [address] [place] [address] * CBC WITH AUTO DIFF (10/04/2016 4:11 PM EDT) Pathologist [facility] WBC 7.4 4.0 - 11.0 x10(3)/mcL [facility] RBC 4.46 3.80 - 5.10 x10(6)/mcL [facility] Hgb 13.5 12.0 - 15.6 gm/dL [facility] Hct 40.2 35.7 - 45.9 % [facility] MCV 90.1 82.5 - 99.8 fL [facility] MCH 30.4 27.0 - 34.3 pg [facility] MCHC 33.7 32.1 - 35.3 gm/dL [facility] RDW 13.5 11.5 - 15.0 % [facility] Platelet 316 144 - 423 x10(3)/mcL [facility] MPV 7.8 6.8 - 10.8 fL [facility] Blood specimen (specimen) UPPER LIMB STRUCTURE / Unknown 10/04/2016 4:11 PM EDT 10/04/2016 4:19 PM EDT us Isha White LOCKSMITH APPRENTICE HEMATOLOGY ORDERABLES Final Result [facility] [address] [place] [address] documented in this encounter Visit Diagnoses Diagnosis Preop testing- Primary Preoperative examination, unspecified Biliary colic Calculus of gallbladder without mention of cholecystitis or obstruction documented in this encounter Care Teams Telecommunications Facility Examiner Relationship Specialty Start Date End Date Aldair Sands [address] [place] [address] PCP - General Family Medicine 09/19/16 documented as of this encounter
--- OUTSIDE RECORDS SUMMARY | 2024-06-19 07:30 | XMS_ITS | Encounter Summary ---
Author Organization [facility] [place] [address] Care Team Providers Care Tank Cooper Name Role Phone Aldair Sands Primary Care Provider Reason for Visit * Auth/Cert/Inpt Specialty Diagnoses / Procedures Referred By Armandoac t Referred To Contact Diagnoses Biliary colic Biliary colic [K80.50] Procedures CT LAP,CHOLECYSTECTOMY LAPAROSCOPIC CHOLECYSTECTOMY POSSIBLE OPEN Referral ID Status Reason Start Date Expiration Date Visits Re quested Visits Authorized [id number] 1 1 Encounter Details Date Type Department Care Team (Late st Contact Info) Description 10/14/2016 12:15 PM EDT Anesthesia Event [facility] PERIOP [address] [place] [id number] Brooks Ravi MD [address] [facility] [place] [phone] Carie Boone, SITE INTERPRETER [address] [facility] [address] [place] [phone] Anesthesia Record Procedure Summary Procedure Name Responsible [...] acknowledgement of understanding from the receiving PACU/ICU pizza hut team member 1320 An Stop Meds Name Total midazolam [...] Patient Date: October 14, 2016 Patient Location: [facility] Post OP Vitals: stable Level of Consciousness: [...] mg documented in this encounter Care Teams Tank Cooper Relationship Specialty Start Date End Date Aldair Sands [address] [place] [id number] PCP - General Family Medicine 09/19/16 documented as of this encounter
[2024-06-19 08:28] LABS: D-Dimer 0.45 ug/mL (0.0-0.5)
== END 2024-06-19 23:59 | disposition home or self-care (01) ==
LOC: LAB 07:27
PROVIDERS: Physician Assistant; PCP Family Medicine; Visit Provider Internal Medicine
DX: R07.9 Chest pain, unspecified (principal); R94.31 Abnormal electrocardiogram [ECG] [EKG]; R00.2 Palpitations; R06.00 Dyspnea, unspecified; R42 Dizziness and giddiness; R53.83 Other fatigue
CPT/HCPCS: 36415; 85378

== ENCOUNTER 2024-06-24 15:20 | Outpatient (CLI) | payer BC, SELFPAY ==
--- NOTE | 2024-06-24 15:26 | CA_ITS ---
APPROVED REPORT EXAM: Comprehensive 2D, Doppler, and color-flow Echocardiogram Healthcare Account Manager: Mary Perez, RT(R) Ht: 5 ft 8 in Wt: 199lbs BSA: 2.04 BP: 148/96 mmHg Indications: CP, palpitations, fatigue, BRODY, family history of HD, bradycardia 2D Dimensions LVEF (Scales's) 59.90 % F: 54 - 74 LV Volume 95.00 mL F: 46 - 106 LV Volume Index 46.6 mL/m2 F: 29 - 61 LA Volume 29.50 mL LA Volume Index 14.46 mL/m2 (M/F) 16-34 EF AP4 59.60 % EF AP2 59.2 % EF BP 59.9 % GL Strain -21.0 % M-Mode Dimensions RVDd 2.41 cm (0.9-2.6) LA Diam 3.56 cm (1.9-4.0) LVDd 5.36 cm (3.5-5.7) LVDs 3.65 cm (3.5-5.7) IVSd 0.70 cm (0.6-1.1) PWd 0.70 cm (0.6-1.1) EF (Teich) 59.50% FS 31.90% EDV (Teich) 138.90 mL ESV (Teich) 56.30 mL LV Diastology E Decel Time 183 (160-240 msec) E/A Ratio 1.3 Mitral Valve MV E Max Pierce. 107.0 (40-130 cm/s) MV A Velocity 83.0 (40-130 cm/s) E/A Ratio 1.29 MV PHT 54.0 ms Left Ventricle The left ventricle is normal size. The left ventricular systolic function is normal. The left ventricular ejection fraction is within the normal range. There is normal left ventricular wall thickness. There is normal LV segmental wall motion. The left ventricular diastolic function is normal. LVEF is 55%. Right Ventricle The right ventricle is normal size. The right ventricular systolic function is normal. Atria The left atrium size is normal. The right atrium size is normal. There is no Doppler evidence of interatrial shunt. Aortic Valve Aortic valve opens well. There is no aortic valvular stenosis. No aortic regurgitation is present. Mitral Valve The mitral valve is normal in structure. No evidence of mitral valve stenosis. Trace mitral valve regurgitation noted. Tricuspid Valve Tricuspid valve is grossly normal in structure and function. Trace tricuspid regurgitation. There is insufficient TR jet to estimate RVSP. Pulmonic Valve The pulmonary valve is normal in structure. Trace pulmonic regurgitation. Great Vessels The aortic root is normal in size. The ascending aorta is normal in size. IVC is normal in size and collapses >50% with inspiration. Pericardium There is no pericardial effusion. Other Information Study Quality: Fair Conclusion Normal biventricular systolic function. No significant valvular stenosis or regurgitation. Electronically signed by : Ashley Soliz MD 06/30/2024 20:57:50
--- OUTSIDE RECORDS SUMMARY | 2024-06-25 22:25 | XMS_ITS | Encounter Summary ---
Author Organization [facility] [place] [address] Care Team Providers Care Research Laboratory Technician Name Role Phone Aldair Sands Primary [...] on filedocumented in this encounter Care Teams Research Laboratory Technician Relationship Specialty Start Date End Date Aldair Sands [address] [place] [address] PCP - General Family Medicine 09/19/16 documented as of this encounter
--- OUTSIDE RECORDS SUMMARY | 2024-06-25 22:25 | XMS_ITS | Encounter Summary ---
Author Organization [facility] [place] [address] Care Team Providers Care Warehouse Operations Associate Name Role Phone Aldair Sands Primary Care Provider [phone] Reason for Referral * Holter Monitor (Emergency) - Pending Review Specialty Diagnoses / Procedures Referred By Contac t Referred To Contact Radiology Diagnoses Palpitations Procedures HM HOLTER MONITOR RECORDING AND ANALYSIS [address] APRN [address] [place] [address] Phone: tel: fax: Referral ID Status Reason Start Date Expiration Date V isits Requested Visits Authorized [id number] Pending Review 08/30/2022 08/30/2024 1 1 * (Routine) - Closed Specialty Diagnoses / Procedures Referred By Contac t Referred To Contact Diagnoses Chest pain, unspecified type Procedures LOW RISK CHEST PAIN APPOINTMENT [address] APRN [address] [place] [address] Phone: tel: fax: Referral ID Status Reason Start Date Expiration Date Visits Re quested Visits Authorized [id number] Closed 08/30/2022 08/30/2023 1 1 Reason for Visit * Reason Comments Tachycardia Feels her heart is r acing, hx pvc's, chest pain Encounter Details Date Type Department Care Team (Late st Contact Info) Description 08/30/2022 3:51 PM EST - 08/30/2022 6:34 PM EST Emergency [facility] [address] [place] [address] Rylan Rojas MD [address] [place] [address] Chest pain, unspecified type (Primary Dx); [...] cardiology for referral to speak with a switchboard operator receptionist, you should also contact central scheduling to [...] CHOLECYSTECTOMY ; Surgeon: Bennett Jimenez MD; Location: [facility] OR; Service: General ??? SOFT TISSUE BIOPSY N/A 08/18/2017 EXCISIONAL BIOPSY SCALP MASS x3; Surgeon: Bennett Jimenez MD; Location: [facility]; Service: General ??? [...] BASELINE W/ REFLEX Result Value Ref Range pk-cZvdzcdtw-B <6 <14 ng/L Narrative Ingestion of shay doses of biotin (>5 mg/day) taken within 8 hours of drawing blood sample can interfere with this immunoassay test. EK EKG 12 LEAD Narrative NOTICE: Preliminary tracing available for review; Final Interpretation by physician to follow. Impression 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 https://askmayoexpert.[facility].org/topic/clinical-answers/gnt-89346033/cpm-203 92794 hs-cTnT 2Hr Delta from Baseline 08/30/2022 6:12 PM EST [facility] Comment:Unable to calculate, result is outside instrument's measuring range. Blood VENOUS BLOOD / Unknown Venipuncture / Unknown 08/30/2022 5:39 PM EST 08/30/2022 5:50 PM EST Narrative [facility] - 08/30/2022 6:12 PM EST Ingestion of shay doses of biotin (>5 mg/day) taken within 8 hours of drawing blood sample can interfere with this immunoassay test. us Rylan Rojas MD CHEMISTRY ORDERABLES Malu l Result [facility] [address] [place] [address] * XR CHEST AP PORTABLE [...] - 4.200 mcIU/mL 08/30/2022 7:48 PM EST [employer] Blood VENOUS BLOOD / Unknown Venipuncture / Unknown 08/30/2022 4:27 PM EST 08/30/2022 4:33 PM EST Narrative [employer] - 08/30/2022 7:48 PM EST Ingestion of shay doses of biotin (>5 mg/day) taken within 8 hours of drawing blood sample can interfere with this immunoassay test. [address] APRN CHEMISTRY ORDERABLES Final Result Performing Organization Address [facility]/ZIP Co de Phone Number [employer] [address] [facility] , [place] [address] * TROPONIN-T HIGH SENSITIVITY BASELINE W/ REFLEX (08/30/2022 4:03 PM EST) tg-nCjnslyyr-B <6 <14 ng/L 08/30/2022 4:25 PM EST [facility] [employer] [facility] Comment:See the website [employer] for rule out SD care pathway, conditions other than AMI that can cause elevated hs cTnT, and comparison of values from the 4th and 5th generation Herb tests. https://askmayoexpert.[facility].org/topic/clinical-answers/gnt-18668269/cpm-203 90621 Blood VENOUS BLOOD / Unknown Venipuncture / Unknown 08/30/2022 4:03 PM EST 08/30/2022 4:06 PM EST Narrative [facility] [employer] [facility] - 08/30/2022 4:25 PM EST Ingestion of shay doses of biotin (>5 mg/day) taken within 8 hours of drawing blood sample can interfere with this immunoassay test. Rylan Rojas MD CHEMISTRY ORDERABLES Malu l Result [facility] [address] [place] [address] * (ABNORMAL) BASIC METABOLIC PANEL (08/30/2022 4:03 PM EST) [facility] Sodium 141 136 - 145 mmol/L 08/30/2022 4:24 PM EST [facility] Potassium 3.5 3.5 - 5.0 mmol/L 08/30/2022 4:24 PM [facility] Chloride 105 98 - 107 mmol/L 08/30/2022 4:24 PM [facility] Total CO2 22 22 - 29 mmol/L 08/30/2022 4:24 PM [facility] Anion Gap 14 7 - 16 mmol/L 08/30/2022 4:24 PM [facility] Calcium 10.0 8.6 - 10.4 mg/dL 08/30/2022 4:24 PM [facility] Glucose Lvl 102(H) 74 - 100 mg/dL 08/30/2022 4:24 PM EST [facility] BUN 7 6 - 20 mg/dL 08/30/2022 4:24 PM [facility] Creatinine 0.94 0.51 - 1.30 mg/dL 08/30/2022 4:24 PM [facility] eGFR (CKD-EPIcr 2020) 78 >=60 mL/min/1.7 3 m2 08/30/2022 4:24 PM [facility] Comment:Estimated GFR was ca lculated using the CKD-EPIcr (2020) equation refit without race. The equation is recommended by the National Kidney Foundation - [place] [employer] of Nephrology Task Force. Blood VENOUS BLOOD / Unknown Venipuncture / Unknown 08/30/2022 4:03 PM EST 08/30/2022 4:06 PM EST Rylan Rojas MD CHEMISTRY ORDERABLES Malu servin Result [facility] [address] [place] [id number] * (ABNORMAL) CBC (08/30/2022 4:03 PM EST) WBC 7.7 3.7 - 10.3 x10(3)/mcL 08/30/2022 4:09 PM EST [facility] RBC 4.90 3.90 - 5.20 x10(6)/mcL 08/30/2022 4:09 PM EST [facility] Hgb 14.4 11.2 - 15.7 g/dL 08/30/2022 4:09 PM EST [facility] Hct 44.2 34.0 - 45.0 % 08/30/2022 4:09 PM EST [facility] MCV 90.2 80.0 - 100.0 fL 08/30/2022 4:09 PM EST [facility] MCH 29.4 26.0 - 34.0 pg 08/30/2022 4:09 PM EST [facility] MCHC 32.6 30.7 - 35.5 g/dL 08/30/2022 4:09 PM EST [facility] RDW 13.6 <=14.9 % 08/30/2022 4:09 PM EST [facility] Platelet 462(H) 155 - 369 x10(3)/[facility] 08/30/2022 4:09 PM EST [facility] MPV 9.8 8.8 - 12.5 fL 08/30/2022 4:09 PM EST [facility] Blood VENOUS BLOOD / Unknown Venipuncture / Unknown 08/30/2022 4:03 PM EST 08/30/2022 4:06 PM EST Rylan Rojas MD HEMATOLOGY ORDERABLES Fin al Result [facility] [address] [place], [place] [id number] * EK EKG 12 LEAD (08/30/2022 3:50 PM EST) Anatomical Region Laterality Modality Electrocardiogra phy 08/30/2022 4:19 PM EST Impressions 08/30/2022 10:38 PM EST ?[facility] ? Test Date: ?2022-08-30 Pat Name: ? MARYCRUZ MANZANO ?Department: ?? DEPID ? Room: ? 05 Gender: ? Female ? Wafer Polishing Worker: ?? Cw : ?1980 ? Requested By: [facility] Order Number: [id number] ?Reading MD: ?? Jonathan Nghia ? Measurements Intervals ?[place] ? Rate: ? 78 ? P: ?45 AL: ? 165 ?QRS: ?47 QRSD: ? 84 ? T: ?-1 QT: ? 366 ? QTc: ?419 ? 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
--- OUTSIDE RECORDS SUMMARY | 2024-06-25 22:25 | XMS_ITS | Encounter Summary ---
Author Organization [facility] [place] [address] Care Team Providers Care Assembly Machine Set Up Mechanic Name Role Phone Aldair Sands Primary Care Provider [phone] Encounter Details Date Type Department Care Team [...] on filedocumented in this encounter Care Teams Assembly Machine Set Up Mechanic Relationship Specialty Start Date End Date Aldair Sands [address] [place] [address] PCP - General Family Medicine 09/19/16 documented as of this encounter
--- OUTSIDE RECORDS SUMMARY | 2024-06-25 22:25 | XMS_ITS | Clinical Summary ---
Author Organization [facility] Address [address] [place] [address] Phone Care Team Providers Care Race Steward Name Role Phone Aldair Sands Primary Care Provider [phone] Allergies Active Allergy Reactions Criticality Noted Date [...] CHOLECYSTECTOMY ; Surgeon: Bennett Jimenez MD; Location: [facility] MA[facility] OR; Service: General SOFT TISSUE BIOPSY 08/18/2017 N/A EXCISIONAL BIOPSY SCALP MASS x3; Surgeon: Bennett Jimenez MD; Location: [facility] OR; Service: General Medical History [...] Insurance JOSSELYN PPO JOSSELYN PPO Care Teams Race Steward Relationship Specialty Start Date End Date Aldair Sands [address] [place] [address] PCP - General Family Medicine 09/19/16
--- OUTSIDE RECORDS SUMMARY | 2024-06-25 22:25 | XMS_ITS | Referral Summary ---
Author Organization [facility] Address [address] [place] [address] Phone Care Team Providers Care Micropaleontologist Name Role Phone Aldair Sands Primary Care [...] Insurance JOSSELYN PPO JOSSELYN PPO Care Teams Micropaleontologist Relationship Specialty Start Date End Date Aldair Sands [address] [place] [id number] PCP - General Family Medicine 09/19/16
--- OUTSIDE RECORDS SUMMARY | 2024-06-25 22:26 | XMS_ITS | Encounter Summary ---
Author Organization [place] [address] Care Team Providers Care Equipment Engineering Technician Name Role Phone Aldair Sands Primary Care Provider [phone] Reason for Visit * Auth/Cert/Inpt Specialty Diagnoses / Procedures Referred By Contac t Referred To Contact Diagnoses Mass of scalp Mass of scalp [R22.0] Procedures EXCISIONAL BIOPSY SCALP MASS x3 Referral ID Status Reason Start Date Expiration Date Visits Re quested Visits Authorized [id number] 1 1 Encounter Details Date Type Department Care Team (Late st Contact Info) Description 08/18/2017 1:15 PM EST - 08/18/2017 2:00 PM EST Surgery [facility] PERIOP [address] [facility] [place] [address] Bennett Jimenez MD [address] SE[address] WEIGHT [place]GT [place], [place] [id number] EXCISION OF MASS OR SKIN LESION Surgery [...] - 08/18/2017 2:23 PM EST +++++++++++++++++++++++++++++++++++++++++++++++++++++++++++++++++++ +++++++++++++++++++++++++++++++++++++++++++++++++++++++++++++++++++ [facility] Discharge Instructions - Following Anesthesia We [...] our office at . Get Well Soon! [place] Anesthesiologists Call Surgeon if you have: ?? [...] or polysporin as needed 6. Please call [phone] for a follow-up appointment in 7 to [...] Code Departure Means Destination Home or Self Senior Living documented in this encounter H&P Notes * Floyd Vega NP - 08/18/2017 12:03 PM EST [facility] History and Physical Name: Marycruz Echeverria ADDRESS: [address] [place] [address] : 1980 AGE: 37 y.o. Assessment: Mass [...] CHOLECYSTECTOMY ; Surgeon: Bennett Jimenez MD; Location: [facility] MAIN OR; Service: General ??? TONSILLECTOMY [...] Carlos Jimenez M.D. By: Wilmer Job ID: [id number] Doc ID: [id number] * Bennett Jimenez MD - 08/18/2017 2:23 PM EST [facility] OPERATIVE/PROCEDURE NOTE Marycruz Echeverria August 18, 2017 Body mass index is 28.21 kg/m??. Active Hospital Problems Diagnosis ??? *Scalp mass PRE-OP DIAGNOSIS: Mass of scalp [R22.0] POST-OP DIAGNOSIS: Mass of scalp [R22.0] PROCEDURE(S): Procedure(s): EXCISIONAL BIOPSY SCALP MASS x3 SURGEON(S): Surgeon(s) and Role: * Bennett Jimenez MD - Primary OR STAFF: Land Use Planner: Iris Stephens RN Scrub Villalobos: Keke Osborne, K 8 SCHOOL PRINCIPAL Scrub Assist: Yanelis Johnson RN ANESTHESIA: Monitored [...] drinking without difficulty. Patient wheeled out of [facility] in stable condition with visitor. * [...] or alcohol 24 hours prior to surgery. Live Truck Operator ??? On the day of surgery, it is important to have a Live Truck Operator, someone who is 18 years or older, [...] until the child is discharged. If your infant takes a special type of nipple or [...] a Living Will and Durable Power of Embosser Apprentice for Healthcare, please bring a copy. ??? [...] are here. Same Day Surgery Unit - [place] at [phone]; [place]: Entrance 1A, go to [address] [place] [address] on the [facility] nurse's station documented in this encounter Plan [...] PM EST) CASE REPORT Surgical Pathology ?Case: [id number] ? Authorizing Provider: ??Bennett Jimenez MD ? Collected: ? 08/18/2017 1400 ? Ordering Location: ? [facility] ?Received: ?08/19/2017 0828 ? Pathologist: ? Nadia Wilde, ? MD ? Specimen: ?Head, cysts of the head ? 08/22/2017 12:17 PM [facility] FINAL DIAGNOSIS Cyst of head, excision: - Benign pilar cysts. 08/22/2017 12:17 PM [facility] S DESCRIPTION Received in formalin labeled with the patient's name and designated cyst of the head are three glistening long-white to carrizales-long cysts 1.4 to 2.1 cm in greatest dimension. One contains uniform, soft pale long material and the other two soft, carrizales-long material. Quality Improvement Coordinator (Rn) sections of each in two cassettes, largest cyst in A1. / CDM 08/22/2017 12:17 PM [facility] MICROSCOPIC DESCRIPTION Microscopic examination is performed and the findings corroborate the diagnosis. 08/22/2017 12:17 PM [facility] FLOW CYTOMETRY SUMMARY 08/22/2017 12:17 PM [facility] EMBEDDED IMAGES 08/22/2017 12:17 PM EST [facility] Tissue SPECIMEN FROM HEAD AND NECK STRUCTURE / Unknown 08/18/2017 2:00 PM EST 08/19/2017 8:28 AM EST Bennett Jimenez MD PATHOLOGY ORDERABLES Final Resul t Performing Organization Address [facility] Co de Phone Number [facility] [address] [place] [address] * POCT URINE (08/18/2017 12:28 PM EST) Preg Test, Ur neg POS/NEG [facility] Lot Number [id number] [facility] Expiration Date 11/13/2018 [facility] SeriAl # [facility] Control Line Yes YES/NO [facility] 08/18/2017 12:2 8 PM EST us Sandra Alvarez APRN POINT OF CARE TEST ORDERABLES Final Result Performing Organization Address [facility] Co de Phone Number [facility] [address] [place] [address] documented in this encounter Visit Diagnoses Diagnosis [...] 08/18/2017 documented in this encounter Care Teams Equipment Engineering Technician Relationship Specialty Start Date End Date Aldair Sands [address] [place] [phone] PCP - General Family Medicine 09/19/16 documented as of this encounter
--- OUTSIDE RECORDS SUMMARY | 2024-06-25 22:26 | XMS_ITS | Encounter Summary ---
Author Organization [place] [address] Care Team Providers Care Car Loader Name Role Phone Aldair Sands Primary Care Provider [phone] Reason for Visit * Auth/Cert/Inpt Specialty Diagnoses / Procedures Referred By Mike t Referred To Contact Diagnoses Mass of scalp Mass of scalp [R22.0] Procedures EXCISIONAL BIOPSY SCALP MASS x3 Referral ID Status Reason Start Date Expiration Date Visits Re quested Visits Authorized [id number] 1 1 Encounter Details Date Type Department Care Team (Late st Contact Info) Description 08/18/2017 1:36 PM EST Anesthesia Event [facility] PERIOP [address] [place] [address] Haroon Oneill DO [address] [place] [phone] Sandra Alvarez, COMMISSIONING AGENT [address] [place] [address] Anesthesia Record Procedure Summary Procedure Name Responsible [...] acknowledgement of understanding from the receiving PACU/ICU steam table attendant 1419 An Stop Meds Name Total midazolam [...] ROS Endo/Other Comments: Scalp mass (+) Hypothyroidism GUT SNATCHER Additional Pre-evaluation comments Labs reviewed 09/2016 cbc [...] AIRWAY PLACEMENT (08/18/2017 1:46 PM EST) Narrative [facility] - 08/18/2017 1:46 PM EST Kofi Jane CRNA ? 08/18/2017 ??1:46 PM Intraop Airway Placement: ??Airway type: ??Nasal cannula salter Procedure Note Kofi Jane CRNA - 08/18/2017 1:46 PM EST Intraop Airway Placement: Airway type: Nasal cannula salter us Haroon Oneill DO [place] ANESTHESIA Final Res ult [facility] [address] [place] [address] documented in this encounter Visit Diagnoses Not [...] mL/hr documented in this encounter Care Teams Car Loader Relationship Specialty Start Date End Date Aldair Sands [address] [place] [address] PCP - General Family Medicine 09/19/16 documented as of this encounter
--- OUTSIDE RECORDS SUMMARY | 2024-06-25 22:26 | XMS_ITS | Encounter Summary ---
Author Organization [place] [address] Care Team Providers Care Petroleum Inspector Name Role Phone Aldair Sands Primary Care Provider [phone] Encounter Details Date Type Department Care Team (Latest Contact Info) Description 10/04/2016 3:53 PM EDT - 10/04/2016 11:59 PM EDT Hospital Encounter [facility] [facility] [place] [id number] Pat, [facility] Preop testing (Primary Dx); Biliary [...] acknowledgement of understanding from the receiving PACU/ICU assembler steam and gas turbine 1320 An Stop Meds * Agents No [...] day of surgery that you have a CAR RESTORER which is someone, 18 years or older, [...] eye makeup) lotion, powder, or deodorant. Nail tunisian must be removed if tunisian is on operative extremity. Please do not shave operative extremity or near the operative extremity. 13. If you have a Living Will and Durable Power of Program Lead for Healthcare, please bring a copy. 14. [...] payment with you. We accept Visa, MasterCard, [employer] and Sermo credit cards. Our Customer Service Representatives will be available by telephone for any questions regarding financial issues at [phone]. 17. Other 18. If you wear CPAP [...] you are here. Same Day Surgery Unit [facility] at [phone]; [place]: Entrance 1A, go to [address] [place] [address] on the [facility] nurse's station documented in this encounter Medications [...] Percent 38.6 % [facility] Stokes Percent 9.4 % [facility] Eos Percent 0.1 % [facility] Baso Percent 1.0 % [facility] Neut# 3.8 1.8 - 7.7 x10(3)/mcL [facility] Lymph# 2.9 0.6 - 4.8 x10(3)/mcL [facility] Stokes# 0.7 0.0 - 1.3 x10(3)/mcL [facility] Eos# 0.0 0.0 - 0.5 x10(3)/mcL [facility] Baso# 0.1 0.0 - 0.2 x10(3)/mcL [facility] Blood specimen (specimen) 10/04/2016 4:11 PM EDT 10/04/2016 4:19 PM EDT us Isha White COMMODITY MANAGER HEMATOLOGY ORDERABLES Final Result [facility] [address] [place] [address] * (ABNORMAL) COMPREHENSIVE METABOLIC PANEL (10/04/2016 4:11 PM EDT) Pathologist [facility] Sodium 138 136 - 145 mmol/L [facility] Potassium 4.1 3.5 - 5.0 mmol/L [facility] Chloride 100 98 - 107 mmol/L [facility] Total CO2 24 22 - 29 mmol/L [facility] Anion Gap 14 7 - 16 mmol/L [facility] Calcium 10.1 8.6 - 10.2 mg/dL [facility] Glucose Lvl 91 74 - 100 mg/dL [facility] BUN 10 6 - 20 mg/dL [facility] Creatinine 0.90 0.51 - 1.30 mg/dL [facility] Albumin 4.5 3.5 - 5.2 gm/dL [facility] Total Protein 7.4 6.4 - 8.3 gm/dL [facility] Bili Total 0.6 0.1 - 1.3 mg/dL [facility] AST 65(H) <=40 IU/L [facility] ALT 84(H) <=41 IU/L [facility] Alk Phos 51 35 - 104 IU/L [facility] GFR Afr Am >60 [facility] GFR Non Afr Am >60 [facility] Blood specimen (specimen) UPPER LIMB STRUCTURE / Unknown 10/04/2016 4:11 PM EDT 10/04/2016 4:19 PM EDT Isha Wihte COMMODITY MANAGER CHEMISTRY ORDERABLES Edited Result - Final [facility] [address] [place] [address] * CBC WITH AUTO DIFF (10/04/2016 4:11 PM EDT) Pathologist [facility] WBC 7.4 4.0 - 11.0 x10(3)/mcL [facility] RBC 4.46 3.80 - 5.10 x10(6)/mcL [facility] Hgb 13.5 12.0 - 15.6 gm/dL [facility] Hct 40.2 35.7 - 45.9 % [facility] MCV 90.1 82.5 - 99.8 fL [facility] MCH 30.4 27.0 - 34.3 pg [facility] MCHC 33.7 32.1 - 35.3 gm/dL [facility] RDW 13.5 11.5 - 15.0 % [facility] Platelet 316 144 - 423 x10(3)/mcL [facility] MPV 7.8 6.8 - 10.8 fL [facility] Blood specimen (specimen) UPPER LIMB STRUCTURE / Unknown 10/04/2016 4:11 PM EDT 10/04/2016 4:19 PM EDT us Isha White COMMODITY MANAGER HEMATOLOGY ORDERABLES Final Result [facility] [address] [place] [address] documented in this encounter Visit Diagnoses Diagnosis Preop testing- Primary Preoperative examination, unspecified Biliary colic Calculus of gallbladder without mention of cholecystitis or obstruction documented in this encounter Care Teams Petroleum Inspector Relationship Specialty Start Date End Date Aldair Sands [address] [place] [address] PCP - General Family Medicine 09/19/16 documented as of this encounter
--- OUTSIDE RECORDS SUMMARY | 2024-06-25 22:26 | XMS_ITS | Encounter Summary ---
Author Organization [place] [address] Care Team Providers Care Engagement Quality Consultant Name Role Phone Aldair Sands Primary Care Provider Reason for Visit * Auth/Cert/Inpt Specialty Diagnoses / Procedures Referred By Contac t Referred To Contact Diagnoses Mass of scalp Mass of scalp [R22.0] Procedures EXCISIONAL BIOPSY SCALP MASS x3 Referral ID Status Reason Start Date Expiration Date Visits Re quested Visits Authorized [id number] 1 1 Encounter Details Date Type Department Care Team (Latest Contact Info) Description 08/18/2017 11:42 AM EST - 08/18/2017 2:54 PM EST Hospital Encounter [facility] SAME DAY SURGERY [address] [facility] [place] [address] Bennett Jimenez MD [address] [facility] [place] [address] Preop testing (Primary Dx); Scalp mass; Mass [...] our office at . Get Well Soon! [place] Anesthesiologists Call Surgeon if you have: ?? [...] or polysporin as needed 6. Please call [phone] for a follow-up appointment in 7 to [...] Vega NP - 08/18/2017 12:03 PM EST [facility] History and Physical Name: Marycruz Echeverria ADDRESS: [address] [place] [address] : 1980 AGE: 37 y.o. Assessment: Mass [...] N/A 10/14/2016 LAPAROSCOPIC CHOLECYSTECTOMY ; Surgeon: Bennett Jmienez MD; Location: [facility] MAIN OR; Service: General ??? [...] Carlos Jimenez M.D. By: Wilmer Job ID: [id number] Doc ID: [id number] * Bennett Jimenez MD - 08/18/2017 2:23 PM EST [facility] OPERATIVE/PROCEDURE NOTE Marycruz Echeverria August 18, 2017 Body mass index is 28.21 kg/m??. Active Hospital Problems Diagnosis ??? *Scalp mass PRE-OP DIAGNOSIS: Mass of scalp [R22.0] POST-OP DIAGNOSIS: Mass of scalp [R22.0] PROCEDURE(S): Procedure(s): EXCISIONAL BIOPSY SCALP MASS x3 SURGEON(S): Surgeon(s) and Role: * Bennett Jimenez MD - Primary OR STAFF: Bottom Bleacher: Iris Stephens RN Scrub Villalobos: Keke Osborne RETAIL SALES ASSOCIATE Scrub Assist: Yanelis Johnson RN ANESTHESIA: Monitored [...] or alcohol 24 hours prior to surgery. [address] ??? On the day of surgery, it is important to have a Manager Drive, someone who is 18 years or older, [...] a Living Will and Durable Power of Ironing Pleater for Healthcare, please bring a copy. ??? [...] are here. Same Day Surgery Unit - [place] at [phone]; [place]: Entrance 1A, go to [address] [place] [address] on the [facility] nurse's station documented in this encounter [...] PM EST) CASE REPORT Surgical Pathology ?Case: [id number] ? Authorizing Provider: ??Bennett Jimenez MD ? Collected: ? 08/18/2017 1400 ? Ordering Location: ? [facility] ?Received: ?08/19/2017 0828 ? Pathologist: ? Andry, Nadia Caro, ? MD ? Specimen: ?Head, cysts of the head ? 08/22/2017 12:17 PM [facility] FINAL DIAGNOSIS Cyst of head, excision: - Benign pilar cysts. 08/22/2017 12:17 PM [facility] S DESCRIPTION Received in formalin labeled with the patient's name and designated cyst of the head are three glistening long-white to carrizales-long cysts 1.4 to 2.1 cm in greatest dimension. One contains uniform, soft pale long material and the other two soft, carrizales-long material. Geological E Logger sections of each in two cassettes, largest cyst in A1. / CDM 08/22/2017 12:17 PM [facility] MICROSCOPIC DESCRIPTION Microscopic examination is performed and the findings corroborate the diagnosis. 08/22/2017 12:17 PM [facility] FLOW CYTOMETRY SUMMARY 08/22/2017 12:17 PM [facility] EMBEDDED IMAGES 08/22/2017 12:17 PM [facility] Tissue SPECIMEN FROM HEAD AND NECK STRUCTURE / Unknown 08/18/2017 2:00 PM EST 08/19/2017 8:28 AM EST us Bennett Jimenez MD PATHOLOGY ORDERABLES Final Resul t Performing Organization Address City/[facility]/ZIP Co de Phone Number [facility] [address] [place] [address] * POCT URINE (08/18/2017 12:28 PM EST) Preg Test, Ur neg POS/NEG [facility] Lot Number [id number] [facility] Expiration Date 11/13/2018 [facility] SeriAl # [facility] Control Line Yes YES/NO [facility] 08/18/2017 12:2 8 PM EST us Sandra Alvarez ASSEMBLER SURGICAL GARMENT POINT OF CARE TEST ORDERABLES Final Result Performing Organization Address [facility] Co de Phone Number [facility] [address] [place] [address] documented in this encounter Visit Diagnoses Diagnosis [...] 08/18/2017 documented in this encounter Care Teams Engagement Quality Consultant Relationship Specialty Start Date End Date Aldair Sands [address] [place] [phone] PCP - General Family Medicine 09/19/16 documented as of this encounter
--- OUTSIDE RECORDS SUMMARY | 2024-06-25 22:26 | XMS_ITS | Encounter Summary ---
Author Organization [place] [address] Care Team Providers Care Senior Games Technician Name Role Phone Aldair Sands Primary Care Provider [phone] Reason for Visit * Reason Comments Other previous patient, sc alp cysts * Consultation (Routine) - Closed Specialty Diagnoses / Procedures Referred By Contac t Referred To Contact Surgery / General Surgery Diagnoses gallstones Procedures NEW PATIENT Bennett Jimenez MD [address] [place] [address] Phone: tel: fax: Referral ID Status Reason Start Date Expiration Date Visits Re quested Visits Authorized [id number] Closed 09/08/2016 09/08/2017 99 99 Encounter Details Date Type Department Care Team (Late st Contact Info) Description 07/06/2017 9:20 AM EST Office Visit SEP Gen Surg [address] [address] Bennett Jimenez MD [address] [facility] [address] [place] [phone] Scalp mass Social History Tobacco Use Types [...] lump documented in this encounter Care Teams Senior Games Technician Relationship Specialty Start Date End Date Aldair Sands [address] [place] [address] PCP - General Family Medicine 09/19/16 documented as of this encounter
--- OUTSIDE RECORDS SUMMARY | 2024-06-25 22:26 | XMS_ITS | Encounter Summary ---
Author Organization [place] [address] Care Team Providers Care Binder Stripper Hand Name Role Phone Unavailable Primary Care Provider Unavailabl e Reason for Visit * Vascular Imaging (Routine) - Closed Specialty Diagnoses / Procedures Referred By Contetelvina t Referred To Contact Radiology Diagnoses Screening for cardiovascular condition Procedures [facility] VASCULAR CVM[facility] SCREENING SINGLE EXAM [place] Nava APRN Referral ID Status Reason Start Date Expiration Date Visits Re quested Visits Authorized [id number] Closed 06/15/2015 06/14/2016 1 1 Encounter Details Date Type Department Care Team (Latest Contact Info) Description 06/16/2015 11:18 AM EST - 06/16/2015 11:59 PM EST Hospital Encounter EDG [facility] ECHO VAS [place] [phone] [place] Nava APRN Screening for cardiovascular condition [...] Procedure Name Priority Date/Time Associated Diagnosis Comments [facility] VASCULAR CVMHU SCREENING SINGLE EXAM Routine 06/16/2015 4:05 PM EST Screening for cardiovascular condition documented in this encounter Results * [facility] VASCULAR CVMHU SCREENING SINGLE EXAM (06/16/2015 4:05 PM EST) Anatomical Region Laterality Modality Vascular Electrocardiogra phy 06/16/2015 2:14 PM EST Impressions 06/17/2015 11:46 AM EST ?[facility] ? [address] ? [place], [place] [address] ? [phone] ? [email or web address] ?Vascular Screening ?Report JORDON MANZANO ?Exam Date: ??06/16/2015 14:14 ? Family Phys: ?? Verona Simmons Age: ??35 ? Gender: F ?Exam Location: [facility] ? Technologist: ??Tom Mendez, CODY : ??1980 Ht: ?Wt: ?HR: ? BSA: ? BMI: ? BP: ??112 ??/ 81 ?? mmHg ?Accession Number: ??[id number] History: ? Hyperlipidemia This is a limited [...] is within normal ranges described by the [place] [employer] guidelines. ?? Narrative Procedure Note Haroon Guzman MD - 06/17/2015 IMPRESSION [facility] [address] [place] [address] [email or web address] Vascular Screening Report JORDON MANZANO Exam Date: 06/16/2015 14:14Family Phys: Verona Simmons MD Age: 35 Gender: F [facility]: Tom Mendez RVT : 1980 Ht: Wt: HR: BSA: BMI: BP: 112 / 81 mmHgAccession Number: [id number] History: Hyperlipidemia This is a limited screening [...] screening is within normal rangesdescribed by the [place] [employer] guidelines. [place] Nava APRN IMG VASCULAR ORDER SAM Final Result documented in this encounter Visit Diagnoses Diagnosis Screening for cardiovascular condition Screening for other and unspecified cardiovascular conditions documented in this encounter
--- OUTSIDE RECORDS SUMMARY | 2024-06-25 22:26 | XMS_ITS | Encounter Summary ---
Author Organization [place] [address] Care Team Providers Care Name Plate Stamper Name Role Phone Unavailable Primary Care Provider Unavailabl e Reason for Visit * Reason Comments Other cholelithiasis with mildlyl thickened gallbladder wall per ultrasound * Consultation (Routine) - Closed Specialty Diagnoses / Procedures Referred By Mike martinez Referred To Contact Surgery / General Surgery Diagnoses gallstones Procedures NEW PATIENT Bennett Jimenez MD [address] [place] [address] Phone: tel: fax: Referral ID Status Reason Start Date Expiration Date Visits Re quested Visits Authorized [id number] Closed 09/08/2016 09/08/2017 99 99 Encounter Details Date Type Department Care Team (Late st Contact Info) Description 09/08/2016 9:40 AM EST Office Visit SEP Gen Surg [address] [address] [place] [address] [place] [address] [place] [address] Biliary colic Social History Tobacco Use Types [...]
--- OUTSIDE RECORDS SUMMARY | 2024-06-25 22:26 | XMS_ITS | Encounter Summary ---
Author Organization [place] [address] Care Team Providers Care Internet Project Manager Name Role Phone Unavailable Primary Care Provider Unavailabl e Reason for Visit * Reason Onset Date Comments Surgery 09/08/2016 Encounter Details Date Type Department Care Team (Late st Contact Info) Description 09/08/2016 Telephone SEP Gen Surg [facility] [address] [facility] [address] [place] [address] Nesha Campa RMA Surgery Social [...] 11:30 am Notified: 09/08/16 NPO: yes Pretest: [phone] documented in this encounter Plan of Treatment Not on file documented as of this encounter Visit Diagnoses Not on filedocumented in this encounter
--- OUTSIDE RECORDS SUMMARY | 2024-06-25 22:26 | XMS_ITS | Encounter Summary ---
Author Organization [place] [address] Care Team Providers Care Metal Furniture Glazier Name Role Phone Aldair Sands Primary Care Provider Reason for Visit * Reason Onset Date Comments Surgery 07/14/2017 Encounter Details Date Type Department Care Team (Late st Contact Info) Description 07/14/2017 Telephone SEP Gen Surg EDG [address] [facility] [address] [place] [address] Daisy Jansen RMA Surgery Social [...] Miscellaneous Notes * Telephone Encounter - Daisy Jansne RMA - 07/14/2017 1:58 PM EST Surgery Slip Information Dr: Barbara Procedure: Exc bx scalp mass x3 (2cmx2, 3cm) Arrival Date & Time: 08/18/17 @ 11:45 Notified: 07/14/2017 NPO: yes Pretest: Dept to call Hospital/location: [facility] documented in this encounter Plan of Treatment Not on file documented as of this encounter Visit Diagnoses Not on filedocumented in this encounter Care Teams Metal Furniture Glazier Relationship Specialty Start Date End Date Aldair Sands [address] [place] [address] PCP - General Family Medicine 09/19/16 documented as of this encounter
--- OUTSIDE RECORDS SUMMARY | 2024-06-25 22:26 | XMS_ITS | Encounter Summary ---
Author Organization [place] [address] Care Team Providers Care Sandblast Or Shotblast Equipment Tender Name Role Phone Unavailable Primary Care Provider [...]
--- OUTSIDE RECORDS SUMMARY | 2024-06-25 22:26 | XMS_ITS | Encounter Summary ---
Author Organization [place] [address] Care Team Providers Care Electronics Technician Name Role Phone WichoAldair Primary Care Provider Reason for Visit * Auth/Cert/Inpt Specialty Diagnoses / Procedures Referred By Contac t Referred To Contact Diagnoses Biliary colic Biliary colic [K80.50] Procedures [place] LAP,CHOLECYSTECTOMY LAPAROSCOPIC CHOLECYSTECTOMY POSSIBLE OPEN Referral ID Status Reason Start Date Expiration Date Visits Re quested Visits Authorized [id number] 1 1 Encounter Details Date Type Department Care Team (Latest Contact Info) Description 10/14/2016 10:45 AM EDT - 10/14/2016 4:05 PM EDT Hospital Encounter [facility] SAME DAY SURGERY [address] [facility] [place] [address] Bennett Jimenez MD [address] [place] [place] [address] Preop testing; Biliary colic Discharge Disposition: Home [...] MD - 10/14/2016 1:25 PM EDT +++++++++++++++++++++++++++++++++++++++++++++++++++++++++++++++++++ [facility] Discharge Instructions - Following Anesthesia We [...] or vomiting. 5. Walk! 6. Please call [phone] for a follow-up appointment in 7 to [...] Code Departure Means Destination Home or Self [facility] documented in this encounter H&P Notes * Floyd Vega NP - 10/14/2016 11:15 AM EDT [facility] History and Physical Name: Marycruz Manzano ADDRESS: [address] [place] [address] [place] [address] : 1980 AGE: 36 y.o. Assessment: Biliary [...] mass index is 28.75 kg/(m^2). Document Text [facility] DICTATOR: Natalia Jimenez OPERATIVE REPORT DATE OF [...] Jimenez MD - 10/14/2016 12:56 PM EDT [facility] OPERATIVE/PROCEDURE NOTE Marycruz Manzano October 14, 2016 Body mass index is 28.75 kg/(m^2). Active Hospital Problems Diagnosis ??? *Biliary colic PRE-OP DIAGNOSIS: Biliary colic [K80.50] POST-OP DIAGNOSIS: Biliary colic [K80.50] PROCEDURE(S): Procedure(s): LAPAROSCOPIC CHOLECYSTECTOMY SURGEON(S): Surgeon(s) and Role: * Bennett Jimenez MD - Primary OR STAFF: Skiver Blockers: Jocy Musa RN Scrub Villalobos: Tammi Redd, CAREER SERVICES DIRECTOR Scrub Assist: Carlota Ruiz CST 2nd Skiver Blockers: Gian Leahy RN; Godwin Chris, ANESTHESIA: General [...] Number ?Collected Date/Time ? Received Date/Time ? [id number] ? 10/14/16 12:41 EDT ?10/14/16 21:56 EDT [...] No periductal lymph node is identified. ? Pharmacy Clinical Coordinator sections to include inked margin are submitted in one ? cassette. /TE ? DRB/MMD ? Microscopic Description ? Microscopic examination is performed and the findings corroborate the ? diagnosis. [facility] 10/14/2016 12:4 1 PM EDT us Bennett Jimenez MD PATHOLOGY ORDERABLES Final Resul t Performing Organization Address [facility]/ZIP Co de Phone Number [facility] [address] [place] [address] * POCT URINE (10/14/2016 11:23 AM EDT) Preg Test, Ur neg POS/NEG [facility] Lot Number [id number] [facility] Expiration Date [facility] SeriAl # [facility] Control Line Yes YES/NO [facility] 10/14/2016 11:2 3 AM EDT us Isha White CLINICAL TRIALS SYSTEMS ADMINISTRATOR POINT OF CARE TEST ORDERABLE S Final Result Performing Organization Address [facility] Co de Phone Number [facility] [address] [place] [address] documented in this encounter Visit Diagnoses Diagnosis [...] 10/14/2016 documented in this encounter Care Teams Electronics Technician Relationship Specialty Start Date End Date Aldair Sands [address] [place] [id number] PCP - General Family Medicine 09/19/16 documented as of this encounter
--- OUTSIDE RECORDS SUMMARY | 2024-06-25 22:26 | XMS_ITS | Encounter Summary ---
Author Organization [place] [address] Care Team Providers Care Gallery Or Museum Curator Name Role Phone Aldair Sands Primary Care Provider Reason for Visit * Auth/Cert/Inpt Specialty Diagnoses / Procedures Referred By Armandoac t Referred To Contact Diagnoses Biliary colic Biliary colic [K80.50] Procedures [place] LAP,CHOLECYSTECTOMY LAPAROSCOPIC CHOLECYSTECTOMY POSSIBLE OPEN Referral ID Status Reason Start Date Expiration Date Visits Re quested Visits Authorized [id number] 1 1 Encounter Details Date Type Department Care Team (Late st Contact Info) Description 10/14/2016 12:15 PM EDT Anesthesia Event [facility] PERIOP [address] [place] [id number] Brooks Ravi MD [address] [facility] [place] [id number] Carie Boone, POLISHER AND BUFFER [address] [facility] [address] [place] [id number] Anesthesia Record Procedure Summary Procedure Name Responsible [...] acknowledgement of understanding from the receiving PACU/ICU support team member 1320 An Stop Meds Name [...] Patient Date: October 14, 2016 [facility]: [facility] Post OP Vitals: stable Level of [...] mg documented in this encounter Care Teams Gallery Or Museum Curator Relationship Specialty Start Date End Date Aldair Sands [address] [place] [phone] PCP - General Family Medicine 09/19/16 documented as of this encounter
--- OUTSIDE RECORDS SUMMARY | 2024-06-25 22:26 | XMS_ITS ---
Author Organization Unknown Medications Medication Instructions Effective Dates (start - stop) Status azithromycin 250 MG Oral Tablet [id number]:00:00.000+00:00 - Completed levothyroxine sodium 0.1 MG Oral Tablet [id number]:00:00.000+00:0 0 - Completed levothyroxine sodium 0.1 MG Oral Tablet [id number]:00:00.000+00:0 0 - Completed levothyroxine sodium 0.1 MG Oral Tablet [id number]:00:00.000+00:0 0 - Completed levothyroxine sodium 0.1 MG Oral Tablet [id number]:00:00.000+00:0 0 - Completed levothyroxine sodium 0.1 MG Oral Tablet [id number]:00:00.000+00:0 0 - Completed levothyroxine sodium 0.1 MG Oral Tablet [id number]:00:00.000+00:0 0 - Completed levothyroxine sodium 0.1 MG Oral Tablet [id number]:00:00.000+00:0 0 - Completed levothyroxine sodium 0.1 MG Oral Tablet [id number]:00:00.000+00:0 0 - Completed Patient Care team information Name Category Status Period Participants - - Proposed period not known -
--- OUTSIDE RECORDS SUMMARY | 2024-06-25 22:26 | XMS_ITS | Encounter Summary ---
Author Organization [place] [address] Care Team Providers Care Laundry Laborer Name Role Phone Aldair Sands Primary Care Provider Reason for Visit * Reason Comments Post-Operative Exam 1st post op, alfonso bermudez Encounter Details Date Type Department Care Team (Late st Contact Info) Description 10/20/2016 8:50 AM EDT Office Visit SEP Gen Surg [address] [address] Bennett Jimenez MD [address] [place] [address] Biliary colic (Primary Dx) Social History Tobacco [...] documented as of this encounter Care Teams Laundry Laborer Relationship Specialty Start Date End Date Aldair Sands [address] [place] [address] PCP - General Family Medicine 09/19/16 documented as of this encounter
--- OUTSIDE RECORDS SUMMARY | 2024-06-25 22:26 | XMS_ITS | Encounter Summary ---
Author Organization [place] [address] Care Team Providers Care Motor Vehicle Emissions Inspector Name Role Phone WichoGil landerosninoska Cantu Primary Care Provider Reason for Visit * Auth/Cert/Inpt Specialty Diagnoses / Procedures Referred By Contac t Referred To Contact Diagnoses Biliary colic Biliary colic [K80.50] Procedures [place] LAP,CHOLECYSTECTOMY LAPAROSCOPIC CHOLECYSTECTOMY POSSIBLE OPEN Referral ID Status Reason Start Date Expiration Date Visits Re quested Visits Authorized [id number] 1 1 Encounter Details Date Type Department Care Team (Late st Contact Info) Description 10/14/2016 1:00 PM EDT - 10/14/2016 2:00 PM EDT Surgery [facility] PER[facility]OP [address] [facility] [address] Bennett Jimenez MD [address] [place] [address] LAPAROSCOPIC CHOLECYSTECTOMY POSSIBLE OPEN Surgery Details Date/Time Status Location OR Service Patient Class Case Class Case Type Trauma Case? 10/14/2016 1:00 PM Posted [facility] OR 03 General Same [...] MD - 10/14/2016 1:25 PM EDT +++++++++++++++++++++++++++++++++++++++++++++++++++++++++++++++++++ [facility] Discharge Instructions - Following Anesthesia We [...] or vomiting. 5. Walk! 6. Please call [phone] for a follow-up appointment in 7 to [...] Code Departure Means Destination Home or Self [facility] documented in this encounter H&P Notes * Floyd Vega NP - 10/14/2016 11:15 AM EDT [facility] History and Physical Name: Marycruz Manzano ADDRESS: [address] [place] [address] [place] [address] : 1980 AGE: 36 y.o. Assessment: Biliary [...] index is 28.75 kg/(m^2). Document Text [facility] DICTATOR: Natalia Jimenez OPERATIVE REPORT DATE OF [...] Jimenez MD - 10/14/2016 12:56 PM EDT [facility] OPERATIVE/PROCEDURE NOTE Marycruz Manzano October 14, 2016 Body mass index is 28.75 kg/(m^2). Active Hospital Problems Diagnosis ??? *Biliary colic PRE-OP DIAGNOSIS: Biliary colic [K80.50] POST-OP DIAGNOSIS: Biliary colic [K80.50] PROCEDURE(S): Procedure(s): LAPAROSCOPIC CHOLECYSTECTOMY SURGEON(S): Surgeon(s) and Role: * Bennett Jimenez MD - Primary OR STAFF: Professional Soccer Player: Jocy Musa RN Scrub Villalobos: Tammi Redd, YARY Scrub Assist: Carlota Ruiz CST 2nd Professional Soccer Player: Gian Leahy RN; Godwin Chris ST ANESTHESIA: [...] Number ?Collected Date/Time ? Received Date/Time ? [id number] ? 10/14/16 12:41 EDT ?10/14/16 21:56 EDT [...] No periductal lymph node is identified. ? Flat Locker sections to include inked margin are submitted in one ? cassette. /TE ? DRB/MMD ? Microscopic Description ? Microscopic examination is performed and the findings corroborate the ? diagnosis. [facility] 10/14/2016 12:4 1 PM EDT Bennett Jimenez MD PATHOLOGY ORDERABLES Final Resul t [facility] [address] [place] [address] * POCT URINE (10/14/2016 11:23 AM EDT) Preg Test, Ur neg POS/NEG [facility] Lot Number [id number] [facility] Expiration Date [facility] SeriAl # [facility] Control Line Yes YES/NO [facility] 10/14/2016 11:2 3 AM EDT Isha White PHLEBOTOMY SERVICES REPRESENTATIVE POINT OF CARE TEST ORDERABLE S Final Result [facility] [address] [place] [address] documented in this encounter Visit Diagnoses Diagnosis [...] 10/14/2016 documented in this encounter Care Teams Motor Vehicle Emissions Inspector Relationship Specialty Start Date End Date Aldair Sands [address] [place] [address] PCP - General Family Medicine 09/19/16 documented as of this encounter
--- OUTSIDE RECORDS SUMMARY | 2024-06-25 22:26 | XMS_ITS | Encounter Summary ---
Author Organization [place] [address] Care Team Providers Care Field Marketing Director Name Role Phone Aldair Sands Primary Care Provider Encounter Details Date Type Department Care Team (Late st Contact Info) Description 11/03/2016 Orders Only SEP Gen Surg [address] [address] Bennett Jimenez MD [address] [facility] [address] [place], [place] [phone] Wound infection (Primary Dx) Social History Tobacco [...] classified documented in this encounter Care Teams Field Marketing Director Relationship Specialty Start Date End Date Aldair Sands [address] [place] [address] PCP - General Family Medicine 09/19/16 documented as of this encounter
== END 2024-06-24 23:59 | disposition home or self-care (01) ==
LOC: RT 15:21
PROVIDERS: PCP Family Medicine; Visit Provider Physician Assistant
DX: R00.2 Palpitations (principal); R53.83 Other fatigue; R94.31 Abnormal electrocardiogram [ECG] [EKG]; R06.00 Dyspnea, unspecified; R07.9 Chest pain, unspecified
CPT/HCPCS: 93306

== ENCOUNTER 2024-07-04 07:54 | Outpatient (CLI) | payer BC, SELFPAY ==
--- NOTE | 2024-07-04 08:04 | CA_ITS ---
APPROVED REPORT Exam: Exercise Treadmill Technologist: Rubina Roldan Stress Test Details Test: Exercise stress testing was performed using a Tom protocol. HR Resting HR: 75 bpm Max Heart Rate (APMHR): 177 bpm Max HR Achieved: 176 bpm Target HR (85% APMHR): 150 bpm % of APMHR: 99 Recovery HR: 100 bpm HR response to stress: Normal HR response to stress BP Resting BP: 127.0/86.0 mmHg Max BP: 178.0/86.0 mmHg Recovery BP: 137.0/82.0 mmHg BP response to stress: Normal blood pressure response to stress. ECG Resting ECG: NSR Stress EC mm horizontal ST depression Arrhythmia: Occasional PVCs Recovery ECG: Return to baseline within 30 minutes of recovery Clinical Exercise duration: 10:23 min Highest Stage Achieved: IV Exercise capacity: 12.1 METs Overall Exercise Capacity for Age: Average Stress ECG Conclusion Exercised 10:23 on Tom Protocol Max HR: 176 % of PM: 99% Max BP: 178/86 METs: 12.1 Test stopped due to: SOA, fatigue Symptoms: No chest pain Arrhythmias/Ectopy: Occasional PVCs ST-T Changes: [address] depression Conclusion: EKG chages equivocal for ischemia. GXT only (no imaging). Further evaluation with stress test plus imaging modality vs CCTA is recommended (if clinically feasible). Electronically signed by : Ashley Soliz MD 07/04/2024 12:40:36
== END 2024-07-04 23:59 | disposition home or self-care (01) ==
PROVIDERS: PCP Family Medicine; Visit Provider Physician Assistant
DX: R94.31 Abnormal electrocardiogram [ECG] [EKG] (principal); R00.2 Palpitations; R07.9 Chest pain, unspecified; R06.00 Dyspnea, unspecified; R53.83 Other fatigue
CPT/HCPCS: 93017; 93018